=== PATIENT | male | born 1950 | race Caucasian/White ===

== ENCOUNTER → 2020-01-19 08:33 | Outpatient (BNVA) | payer OTHER, MEDICARE, SELFPAY | PROVIDERS: Family Provider Family Medicine; PCP Family Medicine; Visit Provider Nurse Practitioner Family | DX: I10 Essential (primary) hypertension (principal); Z68.32 Body mass index [BMI] 32.0-32.9, adult; Z12.6 Encounter for screening for malignant neoplasm of bladder | CPT/HCPCS: 80053; 80061; 81000; 82044; 83036; 84439; 84443 ==

== ENCOUNTER → 2020-02-07 09:53 | Outpatient (BNVA) | payer MEDICARE, OTHER, SELFPAY | PROVIDERS: Family Provider Family Medicine; PCP Family Medicine; Visit Provider Family Medicine | DX: E87.1 Hypo-osmolality and hyponatremia (principal); I10 Essential (primary) hypertension; E11.8 Type 2 diabetes mellitus with unspecified complications | CPT/HCPCS: 36415; 80053 ==

== ENCOUNTER → 2020-02-23 08:53 | Outpatient (BNVA) | payer OTHER, MEDICARE, SELFPAY | PROVIDERS: Family Provider Family Medicine; PCP Family Medicine; Visit Provider Nurse Practitioner Family | DX: R31.9 Hematuria, unspecified (principal); I10 Essential (primary) hypertension; E87.1 Hypo-osmolality and hyponatremia; E11.8 Type 2 diabetes mellitus with unspecified complications | CPT/HCPCS: 81000 ==

== ENCOUNTER → 2020-03-08 09:20 | Outpatient (BNVA) | payer OTHER, MEDICARE, SELFPAY | PROVIDERS: Family Provider Family Medicine; PCP Family Medicine; Visit Provider Family Medicine | DX: E11.8 Type 2 diabetes mellitus with unspecified complications (principal); E87.1 Hypo-osmolality and hyponatremia | CPT/HCPCS: 80053 ==

== ENCOUNTER → 2020-07-19 09:40 | Outpatient (BNVA) | payer OTHER, MEDICARE, SELFPAY | PROVIDERS: Family Provider Family Medicine; PCP Family Medicine; Visit Provider Family Medicine | DX: E11.8 Type 2 diabetes mellitus with unspecified complications (principal); E87.1 Hypo-osmolality and hyponatremia | CPT/HCPCS: 80053; 83036 ==

== ENCOUNTER → 2020-08-10 10:01 | Outpatient (BNVA) | payer OTHER, MEDICARE, SELFPAY | PROVIDERS: Family Provider Family Medicine; PCP Family Medicine; Visit Provider Family Medicine | DX: E87.1 Hypo-osmolality and hyponatremia (principal) | CPT/HCPCS: 36415; 80048 ==

== ENCOUNTER 2020-09-04 00:30 | Inpatient (IN) | payer MEDICARE, SELFPAY ==
[2020-09-04] VITALS (249 sets, daily range): BP systolic 113–187; BP diastolic 47–134; PULSE 64–130; RESP 0–74; TEMP 36–36.6; O2SAT 85–100; BMI 30.1
--- NOTE | 2020-09-04 00:37 | XRR_ITS ---
PROCEDURE INFORMATION: Exam: XR Chest Exam date and time: 09/04/2020 12:41 AM Age: 70 years old Clinical indication: Shortness of breath; Prior surgery; Surgery type: Pacemaker; Additional info: SOB TECHNIQUE: Imaging protocol: XR of the chest Views: 1 view. COMPARISON: No relevant prior studies available. FINDINGS: Tubes, catheters and devices: Atrioventricular pacemaker. Lungs: Interstitial prominence. Asymmetric left basilar airspace/pleural disease partially obscuring the left hemidiaphragm. Heart/Mediastinum: Borderline cardiomegaly. Bones/joints: Old rib fractures and degenerative change. XR/XR chest 1V portable [id number] IMPRESSION: Interstitial prominence and asymmetric left basilar airspace/pleural disease .
--- NOTE | 2020-09-04 00:38 | ECG_ITS ---
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
--- NOTE | 2020-09-04 00:40 | ED_ITS ---
HPI - SOB/Dyspnea General: Chief Complaint: Shortness of Breath/Dyspnea Stated Complaint: SOB Time Seen by Provider: 09/04/20 00:32 Source: patient Mode of arrival: ambulatory Limitations: no limitations History of Present Illness: HPI Narrative: 70-year-old male states that he has history of COPD along with CHF. He states that seen he started having increasing shortness of breath. Patient is in distress here and is able to talk in roughly 4-5 word sentences. He has audible wheezing in the room. He denies any cough or fever. He denies any chest pain. States his shortness of breath is worse with exertion. MD elicited complaint: shortness of breath Associated symptoms: Deny abdominal pain, chest pain, fever(s), nausea or vomiting Review of Systems Const: Denies: fever(s), chills, body aches or change in appetite Eyes: Denies: blurry vision or eye discomfort ENMT: Denies: throat pain or dental pain Card: Denies: chest pain Resp: Reports: dyspnea and wheezing GI: Denies: abdominal pain, nausea, vomiting or diarrhea : Denies: dysuria Musc: Denies: neck pain or back pain Skin/Breast: Denies: rash Neuro: Denies: headache(s) Psych: Denies: depression Mark/Lymph: Denies: easy bruising All/Imm: Denies: urticaria PFSH ED PFSH: Medical History (Updated 09/04/20 @ 03:01 by Velma Carlton MD) CAD (coronary artery disease) Had PCI in 2017 following a heart attack COPD (chronic obstructive pulmonary disease) Pacemaker Type 2 diabetes mellitus with complication, without long-term current use of insulin Surgical History (Updated 09/04/20 @ 01:44 by Madeleine Bates MD) History of PTCA S/P placement of cardiac pacemaker Family History Mother Cancer Family/Other Diabetes Father Lung disease Denies family history of CAD (coronary artery disease) Clotting disorder Dementia Chronic kidney disease (CKD) Suicide Anesthesia complication Bleeding disorder Stroke Social History Smoking and tobacco status: never smoked Alcohol intake: current Alcohol intake frequency: few times a week Physical Exam Const: COMMON NORMALS: patient oriented x3 GENERAL APPEARANCE: in distress HENMT: COMMON NORMALS: normocephalic and atraumatic HEAD & SCALP: normocephalic and atraumatic Eye: COMMON NORMALS: Equal, round and reactive pupils present and EOMs intact bilaterally PUPIL: Yes Equal, round and reactive pupils present Neck/C-Spine: COMMON NORMALS: full ROM and supple Chest: COMMONS NORMALS: normal inspection of the chest and normal palpation of entire chest wall Resp: EFFORT & INSPECTION: Yes tachypneic and Yes respiratory distress AUSCULTATION: wheezes Cardio: COMMON NORMALS: regular rate, regular rhythm and No murmurs present (Cardio) RATE: regular rate RHYTHM: regular rhythm GI: COMMON NORMALS: Normal to inspection, nondistended, normoactive bowel sounds present, Soft to palpation, non-tender and no masses PALPATION: Yes S oft to palpation Extremity: COMMON NORMALS: normal to inspection and full ROM Neuro: COMMON NORMALS: patient oriented x3, moves all extremities and no focal motor deficits Psych: COMMON NORMALS: mental status grossly normal, Normal thought process present and cooperative THOUGHT PROCESS: Normal thought process present Skin: COMMON NORMALS: no rashes or lesions noted and no wounds GENERAL SKIN EXAM: no rashes or lesions noted Course Vital Signs: Vital signs: Vital Signs Temperature 97.9 F 09/04/20 00:34 Pulse Rate 108 H 09/04/20 02:21 Respiratory Rate 23 H 09/04/20 02:21 Blood Pressure 185/79 09/04/20 02:21 Pulse Oximetry 97 09/04/20 02:21 MDM - SOB/Dyspnea MDM Narrative: Medical decision making narrative: Patient presents here with likely pneumonia with shortness of breath. Patient also has an elevated troponin will treat with Lovenox. Patient given IV antibiotics for his pneumonia. Breathing has improved with treatments. Patient's D-dimer is negative and has no signs of pulmonary [place] Lab Data: Labs: Lab Results 09/04/20 09/04/20 09/04/20 Range/Units 00:48 00:48 00:48 WBC 18.5 H (4.0-10.0) 10^3/ uL RBC 4.09 L (4.1-5.3) 10^6/u L Hgb 13.6 (11.7-16.6) g/dL Hct 41.3 L (42.0-52.0) % MCV 101.0 H (80-94) fL MCH 33.3 (28.0-34.0) pg MCHC 32.9 (30.0-36.0) g/dL RDW 12.8 (12.1-15.1) % Plt Count 206 (130-400) 10^3/c mm MPV 10.7 H (7.4-10.4) fL Neut % (Auto) 85.2 % Lymph % (Auto) 6.9 % [place] % (Auto) 5.6 % Eos % (Auto) 1.7 % Baso % (Auto) 0.2 % Neut # (Auto) 15.77 H (1.8-7.7) 10^3/u L Lymph # (Auto) 1.3 (0.8-4.8) 10^3/u L [place] # (Auto) 1.0 H (0.2-0.9) 10^3/u L Eos # (Auto) 0.3 (0.0-0.8) 10^3/u L Baso # (Auto) 0.0 (0.0-0.1) 10^3/u L Nucleated RBC % (a uto) 0 % Nucleated RBCs # 0.0 /100WBC PT 14.10 (12.1-14.9) SECO NDS INR 1.06 (0.8-1.2) D-Dimer (0-0.59) ug/mIFE U Specimen Type Sample Site ABG pH (7.35-7.45) ABG pCO2 (35-45) mmHg ABG pO2 (80.0-100.0) mmH g ABG HCO3 (22-26) mmol/L ABG Base Excess (-2.0-2.0) mmol/ L Viraj Test Hematocrit (42-52) % Hgb O2 Saturation (95-100) % Carboxyhemoglobin (0.4-20.1) %THgb Methemoglobin (0.4-1.5) % Total Hemoglobin (14-18) g/dL O2 Delivery Device O2 Liters/Min % Photographic Developer And Printer ID Sodium 134 L (136-145) mmol/L Potassium 4.0 (3.5-5.1) mmol/L Chloride 98 (98-107) mmol/L Carbon Dioxide 22 (22-29) mmol/L Anion Gap 18.0 (5-19) BUN 7 L (8-23) mg/dL Creatinine 0.7 (0.7-1.2) mg/dL GFR Calculation Not Reportable Glucose 211 H (65-115) mg/dL Calculated Osmolal ity 282 L (285-295) mOsm/k g Calcium 8.6 (8.5-10.5) mg/dL Total Bilirubin 0.5 (0.15-1.2) mg/dL AST 22 (0-40) U/L ALT 15 (0-41) U/L Alkaline Phosphata se 74 (40-130) IU/L Troponin T Baselin e (0-15) ng/L NT-Pro-B Natriuret Pep 4506 H (0-125) pg/mL Total Protein 6.9 (6.6-8.7) g/dL Albumin 4.1 (3.5-5.2) g/dL Globulin 2.8 (1.3-4.6) g/dL Procalcitonin (0-0.5) ng/mL SARS-CoV-2 Ag (Rap id) (Negative) 09/04/20 09/04/20 09/04/20 Range/Units 00:48 00:48 00:48 WBC (4.0-10.0) 10^3/ uL RBC (4.1-5.3) 10^6/u L Hgb (11.7-16.6) g/dL Hct (42.0-52.0) % MCV (80-94) fL MCH (28.0-34.0) pg MCHC (30.0-36.0) g/dL RDW (12.1-15.1) % Plt Count (130-400) 10^3/c mm MPV (7.4-10.4) fL Neut % (Auto) % Lymph % (Auto) % [place] % (Auto) % Eos % (Auto) % Baso % (Auto) % Neut # (Auto) (1.8-7.7) 10^3/u L Lymph # (Auto) (0.8-4.8) 10^3/u L [place] # (Auto) (0.2-0.9) 10^3/u L Eos # (Auto) (0.0-0.8) 10^3/u L Baso # (Auto) (0.0-0.1) 10^3/u L Nucleated RBC % (a uto) % Nucleated RBCs # /100WBC PT (12.1-14.9) SECO NDS INR (0.8-1.2) D-Dimer 0.54 (0-0.59) ug/mIFE U Specimen Type Sample Site ABG pH (7.35-7.45) ABG pCO2 (35-45) mmHg ABG pO2 (80.0-100.0) mmH g ABG HCO3 (22-26) mmol/L ABG Base Excess (-2.0-2.0) mmol/ L Viarj Test Hematocrit (42-52) % Hgb O2 Saturation (95-100) % Carboxyhemoglobin (0.4-20.1) %THgb Methemoglobin (0.4-1.5) % Total Hemoglobin (14-18) g/dL O2 Delivery Device O2 Liters/Min % Photographic Developer And Printer ID Sodium (136-145) mmol/L Potassium (3.5-5.1) mmol/L Chloride (98-107) mmol/L Carbon Dioxide (22-29) mmol/L Anion Gap (5-19) BUN (8-23) mg/dL Creatinine (0.7-1.2) mg/dL GFR Calculation Glucose (65-115) mg/dL Calculated Osmolal ity (285-295) mOsm/k g Calcium (8.5-10.5) mg/dL Total Bilirubin (0.15-1.2) mg/dL AST (0-40) U/L ALT (0-41) U/L Alkaline Phosphata se (40-130) IU/L Troponin T Baselin e 112 H* (0-15) ng/L NT-Pro-B Natriuret Pep (0-125) pg/mL Total Protein (6.6-8.7) g/dL Albumin (3.5-5.2) g/dL Globulin (1.3-4.6) g/dL Procalcitonin 0.04 (0-0.5) ng/mL SARS-CoV-2 Ag (Rap id) (Negative) 03/02/21 03/02/21 Range/Units 00:50 01:33 WBC (4.0-10.0) 10^3/ uL RBC (4.1-5.3) 10^6/u L Hgb (11.7-16.6) g/dL Hct (42.0-52.0) % MCV (80-94) fL MCH (28.0-34.0) pg MCHC (30.0-36.0) g/dL RDW (12.1-15.1) % Plt Count (130-400) 10^3/c mm MPV (7.4-10.4) fL Neut % (Auto) % Lymph % (Auto) % [place] % (Auto) % Eos % (Auto) % Baso % (Auto) % Neut # (Auto) (1.8-7.7) 10^3/u L Lymph # (Auto) (0.8-4.8) 10^3/u L [place] # (Auto) (0.2-0.9) 10^3/u L Eos # (Auto) (0.0-0.8) 10^3/u L Baso # (Auto) (0.0-0.1) 10^3/u L Nucleated RBC % (a uto) % Nucleated RBCs # /100WBC PT (12.1-14.9) SECO NDS INR (0.8-1.2) D-Dimer (0-0.59) ug/mIFE U Specimen Type Arterial Sample Site Radial, right ABG pH 7.35 (7.35-7.45) ABG pCO2 41.3 (35-45) mmHg ABG pO2 71.1 L (80.0-100.0) mmH g ABG HCO3 22.8 (22-26) mmol/L ABG Base Excess -2.8 L (-2.0-2.0) mmol/ L Viraj Test Pos Hematocrit 41.7 L (42-52) % Hgb O2 Saturation 91.8 L (95-100) % Carboxyhemoglobin 1.9 (0.4-20.1) %THgb Methemoglobin 0.9 (0.4-1.5) % Total Hemoglobin 13.6 L (14-18) g/dL O2 Delivery Device Nc O2 Liters/Min 2.0 % Photographic Developer And Printer ID [email or web address] Sodium (136-145) mmol/L Potassium (3.5-5.1) mmol/L Chloride (98-107) mmol/L Carbon Dioxide (22-29) mmol/L Anion Gap (5-19) BUN (8-23) mg/dL Creatinine (0.7-1.2) mg/dL GFR Calculation Glucose (65-115) mg/dL Calculated Osmolal ity (285-295) mOsm/k g Calcium (8.5-10.5) mg/dL Total Bilirubin (0.15-1.2) mg/dL AST (0-40) U/L ALT (0-41) U/L Alkaline Phosphata se (40-130) IU/L Troponin T Baselin e (0-15) ng/L NT-Pro-B Natriuret Pep (0-125) pg/mL Total Protein (6.6-8.7) g/dL Albumin (3.5-5.2) g/dL Globulin (1.3-4.6) g/dL Procalcitonin (0-0.5) ng/mL SARS-CoV-2 Ag (Rap id) Negative (Negative) Imaging Data^: CXR: Attestation: I personally reviewed and interpreted this imaging study as follows: My impression: bilateral infiltrates EKG Data^: EKG 1: Attestation: I personally reviewed and interpreted this EKG as follows: EKG Interpretation Date: 09/04/20 EKG interpretation time: 00:44 Interpretation: pacemaker hr [address] or t wave abnormalities qrs 189 qtc 480 Critical Care Time Critical Care Time: Critical Care Time: Yes Total Critical Care Time: 35 Attestation: [address] [address] Ultrasound Report Signed Patient: Tito Stevens Unit #: [id number] : 12/13/2019 Age/Sex: 1Y 08M / M ADM Date: 09/03/20 Loc: ER Room/Bed: Attending Dr: Ordering Provider/Ordering MD: Velma Carlton MD Date of Service: 09/03/20 Procedure(s): US abdomen limited [id number] Accession Number(s): [id number] Report Number: [id number] PROCEDURE INFORMATION: Exam: US Abdomen, Limited; Intussusception Exam date and time: 09/03/2020 9:21 PM Age: 10 years old Clinical indication: Abdominal pain; Generalized; Additional info: R/O intusucception TECHNIQUE: Imaging protocol: US abdomen. Real time ultrasound with image documentation. Limited exam focused on the bowel for possible intussusception. COMPARISON: US Renal Kidney Structu* [id number] 12/21/2018 11:56 AM FINDINGS: Bowel: No intussusception identified. Intraperitoneal space: No free fluid. Lymph nodes: No pathologically enlarged lymph nodes. Bladder: Distended urinary bladder. US/US abdomen limited [id number] IMPRESSION: No intussusception identified. Discharge Plan Discharge Patient Disposition: Admitted As Inpatient Admit Provider: Madeleine Bates Clinical Impression: Pneumonia, Non-ST elevation MO (NSTEMI) Condition: Stable Coding Level of Care Code ED Lab Asst for Chg Fwd Exam Comprehensive
[2020-09-04] MEDS: ipratropium-albuterol 3 mL Neb INHALATION ×3 (00:49→21:19)
[2020-09-04 00:54] LABS: Basophils % 0.2 %; Eosinophils # 0.3 10^3/uL (0.0-0.8); Eosinophils % 1.7 %; Hematocrit 41.3 % (42.0-52.0); Hemoglobin 13.6 g/dL (11.7-16.6); Lymphocytes # 1.3 10^3/uL (0.8-4.8); Lymphocytes % 6.9 %; Mean Corpuscular HGB Conc 32.9 g/dL (30.0-36.0); Mean Corpuscular Hemoglobin 33.3 pg (28.0-34.0); Mean Platelet Volume 10.7 fL (7.4-10.4); Monocytes % 5.6 %; Neutrophils # 15.77 10^3/uL (1.8-7.7); Neutrophils % 85.2 %; Nucleated Red Blood Cells % 0 %; Platelet Count 206 10^3/cmm (130-400); Red Blood Count 4.09 10^6/uL (4.1-5.3); Red Cell Distribution Width 12.8 % (12.1-15.1); White Blood Count 18.5 10^3/uL (4.0-10.0)
[2020-09-04 00:57] LABS: ABG PCO2 41.3 mmHg (35-45); ABG PH Result 7.35 (7.35-7.45); Arterial Blood Gas Hematocrit 41.7 % (42-52); Base Excess ABG -2.8 mmol/L (-2.0-2.0); Blood Gas Allen Test Pos; Blood Gas Sample Site Radial, right; Blood Gas Sample Type Arterial; Carboxyhemoglobin 1.9 %THgb (0.4-20.1); HCO3 ABG 22.8 mmol/L (22-26); HGB O2 Sat 91.8 % (95-100); Methemoglobin 0.9 % (0.4-1.5); Oxygen Device NC; PO2 ABG 71.1 mmHg (80.0-100.0); Total Hemoglobin 13.6 g/dL (14-18)
--- NOTE | 2020-09-04 01:15 | P.HP_ITS ---
Providers/Chief Complaint Primary Care Provider: Kuldip Richter DO Chief Complaint: SOB History of Present Illness Gustavo Mcgill is a 70 year old male who has history of ischemic cardiomyopathy, coronary disease, pacemaker placement type 2 diabetes presented today with chief complaint of worsening shortness of breath. Patient stating that his symptoms started about 7 days ago with shortness of breath which is gradually gotten worse he has not noticed any fever but his symptoms were associated with nonproductive cough. He is endorsing orthopnea and PND, he is denying chest pain, diarrhea and dysuria. He also experienced 1 episode of emesis. Because of the symptoms he decided to come to the hospital for further evaluation. During my evaluation he was saturating well on 2 L nasal cannula with normal hemodynamics, no active chest pain however had audible wheezing, diagnosis in the ER revealed leukocytosis, tachypnea, sepsis, right middle lobe pneumonia, high BNP with mild signs of CHF exacerbation, requested procalcitonin, D-dimer in the ER he history IV steroids, EKG showing paced rhythm, troponin 112 Review of Systems Const: Reports: chills, body aches and fatigue; Denies: fever(s) Eyes: Denies: change in vision ENMT: Denies: throat pain Card: Reports: edema, swelling of feet/ankles, dyspnea on exertion and orthopnea; Denies: chest pain Resp: Reports: dyspnea and non-productive cough GI: Denies: abdominal pain : Denies: flank pain Musc: Denies: neck pain Skin/Breast: Denies: rash Neuro: Denies: headache(s) Psych: Denies: anxiety Endo: Denies: polyuria Mark/Lymph: Denies: easy bruising All/Imm: Denies: urticaria Medications/Allergies Home Medications Medication Instructions Recorded Confirmed Last Taken Type pioglitazone 45 mg tablet 45 mg PO DAILY #90 tab 10/05/19 09/03/20 Unknown Rx atorvastatin 80 mg tablet 80 mg PO DAILY #30 tab 01/10/20 09/03/20 Unknown Rx tamsulosin 0.4 mg capsule 0.4 mg PO DAILY #30 cap 01/10/20 09/03/20 Unknown Rx blood-glucose meter #1 each 02/23/20 09/03/20 Unknown Rx atenolol 100 mg tablet 100 mg PO DAILY #90 tab 03/05/20 09/03/20 Unknown Rx lisinopril 10 mg tablet 10 mg PO DAILY #90 tab 03/05/20 09/03/20 Unknown Rx metformin 1,000 mg tablet See Rx Instructions .ROUTE 07/05/20 09/03/20 Unknown Rx .COMPLEX #180 unspecified glimepiride 4 mg tablet See Rx Instructions .ROUTE 07/23/20 09/03/20 Unknown Rx .COMPLEX #90 tab albuterol sulfate 90 mcg/actuation 2 inh INHALATION Q6H PRN #18 g 08/09/2009/03 Unknown Rx aerosol inhaler Allergies Allergy/AdvReac Type Severity Reaction Status Date / Time No Known Allergies Allergy Verified 09/04/20 00:41 PFSH Acute PFSH: Medical History (Updated 09/04/20 @ 01:43 by Madeleine Bates MD) CAD (coronary artery disease) Had PCI in 2017 following a heart attack COPD (chronic obstructive pulmonary disease) Pacemaker Type 2 diabetes mellitus with complication, without long-term current use of insulin Surgical History (Updated 09/04/20 @ 01:44 by Madeleine Bates MD) History of PTCA S/P placement of cardiac pacemaker Family History Mother Cancer Family/Other Diabetes Father Lung disease Denies family history of CAD (coronary artery disease) Clotting disorder Dementia Chronic kidney disease (CKD) Suicide Anesthesia complication Bleeding disorder Stroke Social History Smoking and tobacco status: never smoked Alcohol intake: current Alcohol intake frequency: few times a week Vitals/I&O/Wt Last Vital Signs Temp 97.9 F 09/04/20 00:34 Pulse 99 09/04/20 00:49 Resp 24 H 09/04/20 00:49 BP 185/79 09/04/20 00:34 Pulse Ox 95 09/04/20 00:49 Weight last 48 hrs Weight 89.811 kg Physical Exam Narrative: EXAM NARRATIVE: elderly male, appears stated age with signs of heart failure Patient was sitting in his bed without active chest pain however saturating well on 2 L nasal cannula S1, S2 paced no murmur appreciated Mild signs of CHF exacerbation Mild conjunctival hyperemia Audible wheezing likely cardiac, diminished airflow right greater than left Abdomen soft nontender Lower extremity 1+ pitting edema No neurological deficit EOMI, PERRLA GCS 15 awake alert x3 oriented No joint swelling or skin cellulitis Data : 09/04/20 00:48 09/04/20 00:48 A&P Assessment and plan (1) Right lower lobe pneumonia: Status: Acute (2) Acute respiratory failure with hypoxia: Status: Acute (3) Sepsis: Status: Acute (4) CHF exacerbation: Status: Acute Additional A&P Information Sepsis due to right middle lobe pneumonia Criteria met with tachypnea, leukocytosis, will start him on ceftriaxone and azithromycin, Requested urine antigens Procalcitonin level, Keep him on prednisone 40 mg a day Blood cultures requested Acute hypoxic respiratory failure Secondary to pneumonia with CHF exacerbation Currently doing well on 2 L nasal cannula Will need home O2 evaluation before discharge Requested D-dimer to rule out PE Acute CHF exacerbation Mild signs of CHF exacerbation with high BNP, cardiac wheezing noted We will request echo in the morning No active chest pain I do believe due to pneumonia he is experiencing acute CHF exacerbation I would recommend against pioglitazone which can exacerbate CHF Coronary artery disease History of stent placement continue aspirin, statins Hold atenolol because of active CHF No active chest pain however troponin 112, rule out PE, EKG showing paced rhythm EKG showing paced rhythm I will start him on ACS protocol because of significant troponin above 100, my differential would include septic cardiomyopathy Type 2 diabetes: I would recommend against glimepiride, we will keep him on car diac/consistent carb diet with moderate sliding scale hold Metformin History of hypertension: Continue lisinopril BPH: Continue tamsulosin Cardiac/consistent carb diet DVT prophylaxis not indicated Full code Attestations Medical Necessity Statement*: Anticipating stay in the hospital, cross more than 2 midnights for acute hypoxia and pneumonia, sepsis Time Spent in Patient Care: (>than 50% of time spent in counselling and/or direct pt care on unit) . 35mins Coding Level of Care Code Acute [place] Drawer for Abdirizakg Fwd Diagnoses Right lower lobe pneumonia J18.9 Acute respiratory failure with hypoxia J96.01 Sepsis A41.9 CHF exacerbation I50.9
[2020-09-04 01:20] LABS: INR 1.06 (0.8-1.2)
[2020-09-04 01:29] LABS: Troponin(5th) Baseline 112 ng/L (0-15)
[2020-09-04 01:34] LABS: Alanine Aminotransferase 15 U/L (0-41); Albumin Level 4.1 g/dL (3.5-5.2); Alkaline Phosphatase 74 IU/L (40-130); Aspartate Amino Transferase 22 U/L (0-40); Blood Urea Nitrogen 7 mg/dL (8-23); Calcium 8.6 mg/dL (8.5-10.5); Carbon Dioxide 22 mmol/L (22-29); Chloride 98 mmol/L (98-107); Globulin 2.8 g/dL (1.3-4.6); Glucose 211 mg/dL (65-115); NT Pro B Type Natriuretic Pept 4506 pg/mL (0-125); Osmolality Calculated 282 mOsm/kg (285-295); Sodium 134 mmol/L (136-145); Total Bilirubin 0.5 mg/dL (0.15-1.2); Total Protein 6.9 g/dL (6.6-8.7)
[2020-09-04 02:01] LABS: D Dimer 0.54 ug/mIFEU (0-0.59)
[2020-09-04 02:14] LABS: Procalcitonin 0.04 ng/mL (0-0.5)
[2020-09-04 02:47] LABS: SARS Covid-2 Antigen Negative (Negative)
[2020-09-04 02:58] LABS: Troponin 5 2HR 131.1 ng/L (0-15); Troponin 5 2HR Delta 19.1 ABS# (0-10)
[2020-09-04] MEDS: LORazepam 2 mg/mL INJ 1 mL 0.5 MG IVP (03:10)
[2020-09-04] MEDS: enoxaparin 100 mg/mL Syringe 90 MG SUBCUT ×2 (03:10→15:27)
--- NOTE | 2020-09-04 03:18 | PC.NURSE ---
Breathing appears labored at this time, pt is distressed. Pt given a breathing treatment by respiratory therapy and 0.5mg ativan IVP by this nurse. Pt continues to sat 85% on 6L O2 via NC. Repiratory therapy will set up Bipap and see how patient tolerates and if respiratory effort decreases.
[2020-09-04] MEDS: nitroglycerin 0.4 mg sublingual Tablet SUBLINGUAL (03:27)
--- NOTE | 2020-09-04 03:30 | XRR_ITS ---
PROCEDURE INFORMATION: Exam: XR Chest Exam date and time: 09/04/2020 3:39 AM Age: 70 years old Clinical indication: Shortness of breath; Prior surgery; Surgery type: Pacemaker; Patient HX: Increased SOB TECHNIQUE: Imaging protocol: XR of the chest Views: 1 view. COMPARISON: CR XR chest 1V portable [id number] 09/04/2020 12:32 AM FINDINGS: Tubes, catheters and devices: Pacemaker. Lungs: Hyperinflation, interstitial prominence, and bibasilar airspace disease. The right basilar airspace disease was not present on the. Study. Pleural spaces: Left pleural effusion partially obscuring the left hemidiaphragm. No significant pneumothorax. Heart/Mediastinum: Cardiac silhouette upper limits of normal in size. Bones/joints: Degenerative change. XR/XR chest 1V portable [id number] IMPRESSION: 1. Hyperinflation, interstitial prominence, and bibasilar airspace disease. 2. Left pleural effusion partially obscuring the left hemidiaphragm.
--- NOTE | 2020-09-04 03:30 | ECG_ITS ---
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
--- NOTE | 2020-09-04 03:49 | PC.NURSE ---
Labetalol 10mg not given at this time as pt BP is now 131/71. Dr. Carlton orders to hold labetalol at this time.
--- NOTE | 2020-09-04 04:33 | USCV_ITS ---
Gustavo Mcgill Age: 70 Gender: M : 1950 Exam Date: 09/04/2020 06:19 Ordering Phys: Madeleine Bates MD Technologist: Brant De Paz Exam Location: [facility] [place] Indication: CHF BP: 134 / 72 HR: Rhythm: Sinus Technical Quality: FAIR MEASUREMENTS (Male / Female) Normal Values 2D ECHO LV Diastolic Diameter PLAX 4.9 cm 4.2 - 5.9 / 3.9 - 5.3 cm LV Systolic Diameter PLAX 3.2 cm IVS Diastolic Thickness 1.1 cm 0.6 - 1.0 / 0.6 - 0.9 cm IVS Systolic Thickness 1.1 cm LVPW Diastolic Thickness 1.1 cm 0.6 - 1.0 / 0.6 - 0.9 cm LVPW Systolic Thickness 1.4 cm LVOT Diameter 2.1 cm LV Ejection Fraction 2D Teich 63.3 % LV Ejection Fraction MOD 2C 33.1 % LV Ejection Fraction 2C AL 32.8 % LA Diameter 3.9 cm LA Width 5.5 cm LA Height 5.5 cm RA Width 4.3 cm RA Height 5.4 cm Aorta at Sinotubular Diameter 3.0 cm M-MODE LV Diastolic Diameter MM 6.0 cm 4.2 - 5.9 / 3.9 - 5.3 cm LV Systolic Diameter MM 4.6 cm LV Ejection Fraction MM Teich 47.5 % IVS Diastolic Thickness MM 1.1 cm 0.6 - 1.0 / 0.6 - 0.9 cm IVS Systolic Thickness MM 2.4 cm LVPW Diastolic Thickness MM 1.4 cm 0.6 - 1.0 / 0.6 - 0.9 cm LVPW Systolic Thickness MM 1.6 cm RV Diastolic Diameter MM 1.6 cm Aortic Annulus Diameter 4.2 cm LA Ao Ratio MM 0.9 MV E Point Septal Separation 1.1 cm DOPPLER AV Peak Velocity 149.0 cm/s LVOT Peak Velocity 109.0 cm/s AV Area Cont Eq vti 2.7 cm squared AV Area Cont Eq pk 2.6 cm squared MV Area PHT 5.0 cm squared Mitral E to A Ratio 0.6 MV E' Velocity 33.0 cm/s Mitral E to MV E' Ratio 10.1 Mitral E to LV E' Lateral Ratio 8.7 Mitral E to LV E' Septal Ratio 11.9 TR Peak Velocity 149.8 cm/s TR Peak Gradient 9.0 mmHg TV Peak E Velocity 61.0 cm/s Right Atrial Pressure 3.0 mmHg Pulmonary Artery Systolic Pressu 12.0 mmHg PV Peak Velocity 100.0 cm/s FINDINGS Left Ventricle Diffuse hypokinesia of the septum, anteroseptum, inferior wall and LV apex. Dyskinetic basal inferolateral segment .overall LV ejection fraction around 36%.Grade I/IV diastolic dysfunction (abnormal relaxation filling pattern), normal to mildly elevated filling pressures. Right Ventricle Pacemaker wire in the right ventricle Right Atrium Pacemaker wire in the right atrium Left Atrium The left atrium is normal in size. Mitral Valve Thickened mitral valve. Mild mitral valve regurgitation. Aortic Valve Thickened aortic valve. Tricuspid Valve No gross abnormalities noted Pulmonic Valve Pulmonic valve not well visualized. Pericardium Normal pericardium without effusion. Aorta Normal ascending aorta dimension. CONCLUSIONS Multiple wall motion of abnormalities with a diminished ejection fraction of around 36% . Grade I/IV diastolic dysfunction (abnormal relaxation filling pattern), normal to mildly elevated filling pressures. Thickened aortic and mitral valves. Mild mitral valve regurgitation. Pacemaker wire in the right atrium and right ventricle. There is no pericardial effusion. Technically somewhat difficult study because of the poor ultrasonic window. There are no prior echocardiogram studies to compare. Dr Ambar Prince MD FACC (Electronically Signed) Final Date: 05 September 2020 05:42 S
[2020-09-04] MEDS: clopidogrel 300 mg Tablet PO (05:17)
[2020-09-04] MEDS: aspirin 325 mg EC Tablet PO (05:17)
--- NOTE | 2020-09-04 06:38 | ECG_ITS ---
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
[2020-09-04 07:31] LABS: Glucose Point of Care 279 mg/dL (70-110)
[2020-09-04] MEDS: FUROsemide 40 mg Tablet PO (08:10)
[2020-09-04] MEDS: predniSONE 20 mg Tablet 40 MG PO (08:10)
[2020-09-04] MEDS: atorvastatin 40 mg Tablet 80 MG PO (08:10)
[2020-09-04] MEDS: aspirin 81 mg EC Tablet PO (08:10)
[2020-09-04] MEDS: cefTRIAXone 1,000 MG in sodium chloride 0.9% (plus) 50 ML 100 MG IV (08:10)
[2020-09-04] MEDS: azithromycin 250 mg Tablet 500 MG PO (08:10)
[2020-09-04] MEDS: clopidogrel 75 mg Tablet PO (08:10)
[2020-09-04] MEDS: tamsulosin 0.4 mg Capsule PO (08:10)
--- NOTE | 2020-09-04 08:22 | PM.PN ---
Subjective Subjective: Interval history: He is feeling little bit better this morning. Shortness of breath is little better. Came off of BiPAP, now on nasal cannula. Normally does not use supplemental oxygen. He denies any cough, no sputum production. Denies chest pain. He has had no fever or chills. No nausea vomiting or diarrhea. Having mild headache. He has not been around any ill persons, or any persons infected with COVID-19. Vitals/I&O/Wt Last Vital Signs Temp 97.5 F L 09/04/20 04:35 Pulse 74 09/04/20 07:35 Resp 18 09/04/20 07:35 BP 159/79 09/04/20 07:35 Pulse Ox 97 09/04/20 07:35 09/03/20 09/04/20 09/04/20 22:59 06:59 14:59 Output Total 200 / 200 Balance -200 / -200 Weight last 48 hrs Weight 88.496 kg Weight 88.479 kg Weight 89.811 kg Physical Exam Const: COMMON NORMALS: no acute distress and patient oriented x3 HENMT: COMMON NORMALS: oropharynx normal OTHER: Old scar or possibly pressure injury on the bridge of the nose. Neck/C-Spine: COMMON NORMALS: no JVD Resp: COMMON NORMALS: normal respiratory effort OTHER: Somewhat coarse breath sounds, perhaps minimal faint crackles, no rhonchi Cardio: COMMON NORMALS: no JVD, regular rhythm, S1 normal heart sound present, S2 normal heart sound present and No murmurs present (Cardio) RHYTHM: regular rhythm HEART SOUNDS: S1 normal heart sound present and S2 normal heart sound present GI: COMMON NORMALS: Normal to inspection, nondistended, normoactive bowel sounds present, Soft to palpation and non-tender PALPATION: Yes Soft to palpation Extremity: COMMON NORMALS: no joint enlargement GENERAL: Yes edema (1+) Neuro: COMMON NORMALS: patient oriented x3 and moves all extremities Skin: COMMON NORMALS: no rashes or lesions noted GENERAL SKIN EXAM: no rashes or lesions noted Data : 09/04/20 00:48 09/04/20 00:48 Micro: Microbiology 09/04/20 02:20 Blood Culture - Preliminary Blood SPECIMEN COLLECTED 09/04/20 02:25 Blood Culture - Preliminary Blood SPECIMEN COLLECTED A&P Assessment and plan (1) Acute respiratory failure with hypoxia: Overnight on BiPAP. This morning proceeding better. Wean down BiPAP, on nasal cannula. He reports he is breathing better today. Denies cough, phlegm production. Denies any chest pain. He is afebrile. Discussed the concern of a number of different processes in him, including community-acquired pneumonia, patient to be in left lower lobe on imaging, acute congestive heart failure, as well as non-STEMI. D-dimer not elevated. Status: Acute (2) Sepsis: Improving. Leukocytosis 18.5, but with improving tachycardia, tachypnea. Continue to biotics. Follow-up cultures. Continue oxygen support, wean down as tolerating. Status: Acute (3) CHF exacerbation: Continue Lasix. Follow-up TTE. Complete troponin EKG series. Continue treatment for non-STEMI, pneumonia. Status: Acute (4) Pneumonia: Community-acquired pneumonia, appears in left lower lobe. Continue ceftriaxone, azithromycin. Follow-up cultures. Status: Acute (5) Non-ST elevation TN (NSTEMI): Continue aspirin, statin, Plavix, therapeutic Lovenox, beta-char had been held due to acute CHF. Status: Acute Additional A&P Information Coronary artery disease: History of stent placement. Follows with Dr. Prince. Type 2 diabetes: No medications on hold. SSI. History of hypertension: Continue lisinopril BPH: Continue tamsulosin Possible pressure injury on the bridge of the nose: avoid additional injury Cardiac/consistent carb diet DVT prophylaxis -on Lovenox Full code Attestations Medical Necessity Statement*: Continue admission for assessment management of respiratory failure with hypoxia, sepsis, pneumonia, acute CHF, non-STEMI. 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
[2020-09-04 08:24] LABS: Troponin 5 6HR 261.3 ng/L (0-15); Troponin 5 6HR Delta 149.3 ng/L (0-12)
--- NOTE | 2020-09-04 08:33 | PC.NURSE ---
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
--- NOTE | 2020-09-04 09:42 | PC.CHAP ---
Pastoral Care Encounter/Spiritual Assessment Type of Contact [] Declined mix chemist visit [] Patient/Family/Request visit [] Outpatient visit [] Follow-up visit [] Physician referral [] Code/Alert [x] Routine visit [] Staff referral [] Actively dying [] Patient sleeping [] Family support [] [] Out of room [] Palliative care [] [] Receiving care in room [] Pre-surgical visit [] Trauma [] Long length of stay [x] ICU visit [] Other: Relational/Emotional Strength [] Patient feels connected with others/family/visitors/staff [] Distress [] Loneliness/isolation [] Abandonment Spirituality of Patient [] Person of Antonette [] Attends Yazidi of their Antonette [] Believes in Prayer [] Reads Bible or Taoist materials [] There are Spiritual issues to be addressed Media Analyst Interventions [x] Prayer [] Active listening [] Non-anxious presence [] Spiritual/emotional support [] Crisis/trauma care [] Spiritual counseling [] Bereavement support [] Provided bereavement packet [] Provided Bible/devotional materials [] Provided toy/stuffed animal, coloring book to patient or family member [] Provided Communion [] Anointing/[place] [] Salvation [x] Completed spiritual assessment [] Other: Impact on Illness or Injury [] Angry [] Fearful [] Anxious [] Often cries [] Exhaustion [] Unable to work [] Unable to attend scientologist [] Unable to walk/stand [] Unable to read [] Unable to drive [] Unable to eat/drink [] Unable to sleep [] Unable to be with family [] Patient intubated [] Other: Summary Time spent with patient
[2020-09-04 11:46] LABS: Glucose Point of Care 371 mg/dL (70-110)
[2020-09-04 18:02] LABS: Glucose Point of Care 220 mg/dL (70-110)
[2020-09-04] MEDS: acetaminophen 325 mg Tablet PO (18:38)
--- NOTE | 2020-09-04 19:38 | P.CONIM_ITS ---
Providers/Reason For Consult Consulting Physican/Specialty*: CHRITSIN Prince MD/cardiology Reason for Consult*: Patient with congestive heart failure/ASHD Attending Physician: Willy Peres Primary Care Provider: Kuldip Richter DO History of Present Illness History of Present Illness Gustavo Mcgill is a 70 year old male with a history of atherosclerotic heart disease, status post myocardial infarction, status post PCI and status post permanent pacer implantation, is presenting with rather acute worsening of shortness of breath. He has been having some amount of shortness of breath with activities for the last more than a week. Yesterday evening, the shortness of breath has significantly gotten worse. He had some nausea and one episode of vomiting. Because of the worsening shortness of breath, he decided to come to the hospital. Could not have any chest pain or fever. No severe cough. No abdominal pain or dysuria. No specific complaints. Was given diuretics and other symptomatic measures. His shortness of breath has significantly improved. His initial troponin was found to be elevated at 112 at baseline, with a delta of 19 at 2 hours and 114 at 6 hours. Patient has recently moved to this area from [place], [place]. He had the PCI approximately 3 years ago. 2 months following the PCI, he had the permanent pacer implantation. He has been compliant with medications. The pacemaker is interrogated in the clinic and was found to be functioning well. Review of Systems Narrative: CONSTITUTIONAL: No fever or chills. Shortness of breath and fatigue lately EYES: No blurring of vision or other visual disturbances lately. ENT: No hoarseness of voice, auditory disturbances or sore throat. CARDIOVASCULAR: As mentioned above. RESPIRATORY: Has been having shortness of breath for last few days GASTROINTESTINAL: No hematemesis or melena. GENITOURINARY: No dysuria or hematuria. INTEGUMENTARY: No skin rashes or history of skin cancer. NEURO: No transient ischemic attacks or amaurosis. PSYCHIATRIC: No history of psychosis or major depression. HEMATOLOGIC: No bleeding disorders or significant anemia. ENDOCRINE: No history of polyuria or polydipsia. MUSCULOSKELETAL: No recent joint pain or swelling. ALLERGY/IMMUNOLOGY: As mentioned above. Meds/Allergies Home Medications and Allergies Home Medications Medication Instructions Recorded Confirmed Last Taken Type atorvastatin 80 mg tablet 80 mg PO DAILY #30 tab 01/10/20 09/04/20 Unknown Rx tamsulosin 0.4 mg capsule 0.4 mg PO DAILY #30 cap 01/10/20 09/04/20 Unknown Rx blood-glucose meter #1 each 02/23/20 09/04/20 Unknown Rx atenolol 100 mg tablet 100 mg PO DAILY #90 tab 03/05/20 09/04/20 Unknown Rx lisinopril 10 mg tablet 10 mg PO DAILY #90 tab 03/05/20 09/04/20 Unknown Rx metformin 1,000 mg tablet See Rx Instructions .ROUTE 07/05/20 09/04/20 Unknown Rx .COMPLEX #180 unspecified glimepiride 4 mg tablet See Rx Instructions .ROUTE 07/23/20 09/04/20 Unknown Rx .COMPLEX #90 tab albuterol sulfate 90 mcg/actuation 2 inh INHALATION Q6H PRN #18 g 08/09/20 09/04/20 Unknown Rx aerosol inhaler aspirin 81 mg PO DAILY 09/04/20 09/04/20 Unknown History Allergies Allergy/AdvReac Type Severity Reaction Status Date / Time No Known Allergies Allergy Verified 09/04/20 00:41 Current Medications Current Medications Generic Name Dose Route Start Last Admin Trade Name Freq PRN Reason Stop Dose Admin Acetaminophen 325 mg 09/04/20 18:26 09/04/20 18:38 Acetaminophen 325 Mg Tablet PO 325 mg Q4H PRN Administration MILD PAIN OR INCREASE TEMP Albuterol/Ipratropium 3 ml 09/04/20 04:33 09/04/20 13:39 Ipratropium-Albuterol 3 Ml Neb INHALATION 3 ml Q6H PRN Administration SHORTNESS OF BREATH Aspirin 81 mg 09/04/20 09:00 09/04/20 08:10 Aspirin 81 Mg Ec Tablet PO 81 mg DAILY TIM Administration Atorvastatin Calcium 80 mg 09/04/20 09:00 09/04/20 08:10 Atorvastatin 40 Mg Tablet PO 80 mg DAILY TIM Administration Azithromycin 500 mg 09/04/20 09:00 09/04/20 08:10 Azithromycin 250 Mg Tablet PO 500 mg DAILY TIM Administration Protocol Clopidogrel Bisulfate 75 mg 09/04/20 09:00 09/04/20 08:10 Clopidogrel 75 Mg Tablet PO 75 mg DAILY TIM Administration Enoxaparin Sodium 90 mg 09/04/20 03:00 09/04/20 15:27 Enoxaparin 100 Mg/Ml Syringe 1 mg/kg (90 mg) 90 mg SUBCUT Administration Q12H TIM Furosemide 40 mg 09/04/20 09:00 09/04/20 08:10 Furosemide 40 Mg Tablet PO 40 mg DAILY TIM Administration Ceftriaxone Sodium 1,000 mg/ 50 mls @ 100 mls/hr 09/04/20 09:00 09/04/20 10:21 Sodium Chloride IV Infused DAILY TIM Infusion Protocol Insulin Aspart 0 unit 09/04/20 08:00 09/04/20 18:18 Insulin Aspart 100 Unit/1 Ml SUBCUT 6 unit WM&BEDTIME TIM Administration Protocol Prednisone 40 mg 09/04/20 09:00 09/04/20 08:10 Prednisone 20 Mg Tablet PO 40 mg DAILY TIM Administration Tamsulosin HCl 0.4 mg 09/04/20 09:00 09/04/20 08:10 Tamsulosin 0.4 Mg Capsule PO 0.4 mg DAILY TIM Administration PFSH Acute PFSH: Medical History CAD (coronary artery disease) Had PCI in 2017 following a heart attack COPD (chronic obstructive pulmonary disease) Pacemaker Type 2 diabetes mellitus with complication, without long-term current use of insulin Surgical History History of PTCA S/P placement of cardiac pacemaker Family History Mother Cancer Family/Other Diabetes Father Lung disease Denies family history of CAD (coronary artery disease) Clotting disorder Dementia Chronic kidney disease (CKD) Suicide Anesthesia complication Bleeding disorder Stroke Social History Smoking and tobacco status: never smoked Alcohol intake: current Alcohol intake frequency: few times a week Vitals/I&O/Wt Last Vital Signs Temp 96.8 F L 09/04/20 09:55 Pulse 83 09/04/20 17:55 Resp 22 H 09/04/20 17:55 BP 165/82 09/04/20 18:00 Pulse Ox 97 09/04/20 18:00 09/04/20 09/04/20 09/04/20 06:59 14:59 22:59 Intake Total 1010 / 1010 Output Total 200 / 200 1200 / 1200 600 / 1800 Balance -200 / -200 -190 / -190 -600 / -790 Weight last 48 hrs Weight 195 lb 1.6 oz Weight 195 lb 1 oz Weight 198 lb Physical Exam Narrative: EXAM NARRATIVE: GENERAL: The patient is alert and oriented times three. Not in any acute distress. HEENT: No significant pallor, icterus or lymphadenopathy. The pupils are symmetrical oral cavity: There are no mucous membrane lesions. Funduscopic ex amination: The fundus is not visualized NECK: Trachea appears to be central. No masses noted. No JVD or thyromegaly appreciated. No carotid bruit. RESPIRATORY: Chest is symmetrical. No intercostals muscle retraction or any accessory muscle activation. There is no chest wall tenderness. Breath sounds are heard bilaterally. No rales or rhonchi heard. No evidence of any consolidation. BREASTS: Deferred. HEART: The PMI is in the 5th left intercostals space just inside the midclavicular line. No palpable precordial events. S1 and S2 are normal. No S3 or S4 heard. No pericardial rub or any click heard. Short systolic murmur in the mitral area. No diastolic murmurs. ABDOMEN: No vessel pulsations or distention. No tenderness. No organomegaly appreciated. No abdominal bruit. Bowel sounds are normally heard. : Deferred. RECTAL: Deferred. LYMPHATIC: No lymphadenopathy noted in the neck or groin. EXTREMITIES: Trace edema with no cyanosis. No clubbing. The dorsalis pedis and posterior pulses are palpable but somewhat weak bilaterally. MUSCULOSKELETAL: No acute joint deformities or swelling. SKIN: There are no significant scars or skin rash noted. NEUROPSYCHIATRIC: The patient is alert and oriented x3. Appears to be in a good mood. The higher functions are grossly within normal limits. No tremors or rigidity noted. Data Labs: Other Labs: Laboratory Last Values WBC 18.5 10^3/uL (4.0 -10.0) H 09/04/20 00:48 RBC 4.09 10^6/uL (4.1 -5.3) L 09/04/20 00:48 Hgb 13.6 g/dL (11.7-1 6.6) 09/04/20 00:48 Hct 41.3 % (42.0-52.0 ) L 09/04/20 00:48 MCV 101.0 fL (80-94) H 09/04/20 00:48 MCH 33.3 pg (28.0-34. 0) 09/04/20 00:48 MCHC 32.9 g/dL (30.0-3 6.0) 09/04/20 00:48 RDW 12.8 % (12.1-15.1 ) 09/04/20 00:48 Plt Count 206 10^3/cmm (130 -400) 09/04/20 00:48 MPV 10.7 fL (7.4-10.4 ) H 09/04/20 00:48 Neut % (Auto) 85.2 % 09/04/20 00:48 Lymph % (Auto) 6.9 % 09/04/20 00:48 Routt % (Auto) 5.6 % 09/04/20 00:48 Eos % (Auto) 1.7 % 09/04/20 00:48 Baso % (Auto) 0.2 % 09/04/20 00:48 Neut # (Auto) 15.77 10^3/uL (1. 8-7.7) H 09/04/20 00:48 Lymph # (Auto) 1.3 10^3/uL (0.8- 4.8) 09/04/20 00:48 Routt # (Auto) 1.0 10^3/uL (0.2- 0.9) H 09/04/20 00:48 Eos # (Auto) 0.3 10^3/uL (0.0- 0.8) 09/04/20 00:48 Baso # (Auto) 0.0 10^3/uL (0.0- 0.1) 09/04/20 00:48 Nucleated RBC % (a uto) 0 % 09/04/20 00:48 Nucleated RBCs # 0.0 /100WBC 09/04/20 00:48 PT 14.10 SECONDS (12 .1-14.9) 09/04/20 00:48 INR 1.06 (0.8-1.2) 09/04/20 00:48 D-Dimer 0.54 ug/mIFEU (0- 0.59) 09/04/20 00:48 Specimen Type Arterial 09/04/20 00:50 Sample Site Radial, right 09/04/20 00:50 ABG pH 7.35 (7.35-7.45) 09/04/20 00:50 ABG pCO2 41.3 mmHg (35-45) 09/04/20 00:50 ABG pO2 71.1 mmHg (80.0-1 00.0) L 09/04/20 00:50 ABG HCO3 22.8 mmol/L (22-2 6) 09/04/20 00:50 ABG Base Excess -2.8 mmol/L (-2.0 -2.0) L 09/04/20 00:50 Viraj Test Pos 09/04/20 00:50 Hematocrit 41.7 % (42-52) L 09/04/20 00:50 Hgb O2 Saturation 91.8 % (95-100) L 09/04/20 00:50 Carboxyhemoglobin 1.9 %THgb (0.4-20 .1) 09/04/20 00:50 Methemoglobin 0.9 % (0.4-1.5) 09/04/20 00:50 Total Hemoglobin 13.6 g/dL (14-18) L 09/04/20 00:50 O2 Delivery Device Nc 09/04/20 00:50 O2 Liters/Min 2.0 % 09/04/20 00:50 Stone Circular Sawyer ID ellpe 09/04/20 00:50 Sodium 134 mmol/L (136-1 45) L 09/04/20 00:48 Potassium 4.0 mmol/L (3.5-5 .1) 09/04/20 00:48 Chloride 98 mmol/L (98-107 ) 09/04/20 00:48 Carbon Dioxide 22 mmol/L (22-29) 09/04/20 00:48 Anion Gap 18.0 (5-19) 09/04/20 00:48 BUN 7 mg/dL (8-23) L 09/04/20 00:48 Creatinine 0.7 mg/dL (0.7-1. 2) 09/04/20 00:48 GFR Calculation Not Reportable 09/04/20 00:48 Glucose 211 mg/dL (65-115 ) H 09/04/20 00:48 POC Glucose 220 mg/dL (70-110 ) H 09/04/20 17:58 Calculated Osmolal ity 282 mOsm/kg (285- 295) L 09/04/20 00:48 Calcium 8.6 mg/dL (8.5-10 .5) 09/04/20 00:48 Total Bilirubin 0.5 mg/dL (0.15-1 .2) 09/04/20 00:48 AST 22 U/L (0-40) 09/04/20 00:48 ALT 15 U/L (0-41) 09/04/20 00:48 Alkaline Phosphata se 74 IU/L (40-130) 09/04/20 00:48 Troponin T Baselin e 112 ng/L (0-15) H* 09/04/20 00:48 Troponin T 120 Min celso 131.1 ng/L (0-15) H 09/04/20 02:25 Delta Troponin T 19.1 ABS# (0-10) H* 09/04/20 02:25 Troponin T Hi Sens 6Hr 261.3 ng/L (0-15) H 09/04/20 07:23 Troponin T Hi Sens 6Hr Delta 149.3 ng/L (0-12) H* 09/04/20 07:23 NT-Pro-B Natriuret Pep 4506 pg/mL (0-125 ) H 09/04/20 00:48 Total Protein 6.9 g/dL (6.6-8.7 ) 09/04/20 00:48 Albumin 4.1 g/dL (3.5-5.2 ) 09/04/20 00:48 Globulin 2.8 g/dL (1.3-4.6 ) 09/04/20 00:48 Procalcitonin 0.04 ng/mL (0-0.5 ) 09/04/20 00:48 SARS-CoV-2 Ag (Rap id) Negative (Negati ve) 09/04/20 01:33 Micro: Micro: Microbiology 09/04/20 04:50 Bacterial Antigens - Final Urine,Voided 09/04/20 04:50 Legionella Urinary Antigen - Final Urine,Voided 09/04/20 02:20 Blood Culture - Pr eliminary Blood SPECIMEN [facility] 09/04/20 02:25 Blood Culture - Pr eliminary Blood SPECIMEN [facility] A&P Assessment and plan (1) Acute non-ST elevation myocardial infarction (NSTEMI): Patient's clinical features are suggestive of a non-ST elevation myocardial infarction. Most likely this might have caused the acute heart failure. Hemodynamically seems to be stable. He may be treated with subcu Lovenox, Plavix, aspirin, beta-char, statin and other symptomatic measures. Patient had an echocardiogram. I will review the echocardiogram. Status: Acute (2) Acute on chronic diastolic (congestive) heart failure: Patient may be carefully treated with IV diuretics and other symptomatic measures. Status: Acute (3) Dyslipidemia (high LDL; low HDL): May continue on the current statin. Status: Acute (4) Essential hypertension: Currently the blood pressure is a stage II. We will optimize the antihypertensive medications. Status: Acute Additional A&P Information Based on the patient's the clinical progress and the results of the above, further recommendations will be made. Thank you for the opportunity to eval this patient make this recommendation. Consult Attestations Medical Necessity Statement: Patient requires continued hospital stay for close monitoring and further management Coding Level of Care Code Acute Report Checker for [facility] Diagnoses Acute non-ST elevation myocardial infarction (NSTEMI) I21.4 Acute on chronic diastolic (congestive) heart failure I50.33 Dyslipidemia (high LDL; low HDL) E78.5 Essential hypertension I10
[2020-09-04 21:07] LABS: Glucose Point of Care 272 mg/dL (70-110)
[2020-09-04] MEDS: sodium chloride 0.9% 1,000 ML 50 ML IV (21:49)
[2020-09-05] VITALS (119 sets, daily range): BP systolic 107–173; BP diastolic 54–105; PULSE 60–118; RESP 0–30; TEMP 36.5–36.6; O2SAT 90–100; BMI 29.6
[2020-09-05] MEDS: enoxaparin 100 mg/mL Syringe 90 MG SUBCUT ×2 (02:55→15:50)
[2020-09-05 03:57] LABS: Basophils % 0.1 %; Eosinophils % 0.1 %; Hematocrit 34.4 % (42.0-52.0); Hemoglobin 11.6 g/dL (11.7-16.6); Lymphocytes # 1.2 10^3/uL (0.8-4.8); Lymphocytes % 9.4 %; Mean Corpuscular HGB Conc 33.7 g/dL (30.0-36.0); Mean Corpuscular Hemoglobin 32.9 pg (28.0-34.0); Mean Corpuscular Volume 97.5 fL (80-94); Monocytes # 1.3 10^3/uL (0.2-0.9); Monocytes % 9.9 %; Neutrophils # 10.15 10^3/uL (1.8-7.7); Nucleated Red Blood Cells % 0 %; Platelet Count 198 10^3/cmm (130-400); Red Blood Count 3.53 10^6/uL (4.1-5.3); Red Cell Distribution Width 12.7 % (12.1-15.1); White Blood Count 12.7 10^3/uL (4.0-10.0)
[2020-09-05 04:14] LABS: Alanine Aminotransferase 13 U/L (0-41); Albumin Level 3.5 g/dL (3.5-5.2); Alkaline Phosphatase 61 IU/L (40-130); Anion Gap 13.7 (5-19); Aspartate Amino Transferase 24 U/L (0-40); Blood Urea Nitrogen 10 mg/dL (8-23); Calcium 8.2 mg/dL (8.5-10.5); Carbon Dioxide 26 mmol/L (22-29); Chloride 99 mmol/L (98-107); Globulin 2.3 g/dL (1.3-4.6); Glucose 159 mg/dL (65-115); Osmolality Calculated 282 mOsm/kg (285-295); Potassium 3.7 mmol/L (3.5-5.1); Sodium 135 mmol/L (136-145); Total Bilirubin 0.4 mg/dL (0.15-1.2); Total Protein 5.8 g/dL (6.6-8.7)
[2020-09-05 07:58] LABS: Glucose Point of Care 151 mg/dL (70-110)
[2020-09-05] MEDS: cefTRIAXone 1,000 MG in sodium chloride 0.9% (plus) 50 ML 100 MG IV (08:54)
[2020-09-05] MEDS: tamsulosin 0.4 mg Capsule PO (08:55)
[2020-09-05] MEDS: atorvastatin 40 mg Tablet 80 MG PO (08:55)
[2020-09-05] MEDS: azithromycin 250 mg Tablet 500 MG PO (08:56)
[2020-09-05] MEDS: aspirin 81 mg EC Tablet PO (08:56)
[2020-09-05] MEDS: FUROsemide 40 mg Tablet PO (08:56)
[2020-09-05] MEDS: clopidogrel 75 mg Tablet PO (08:56)
[2020-09-05] MEDS: predniSONE 20 mg Tablet 40 MG PO (08:56)
--- NOTE | 2020-09-05 09:30 | PC.NURSE ---
5426 Dr Peres notified requesting Nystatin for bilateral groin. Pt requesting laxative. States multiple attempts to have BM but stool is hard and ball-shaped. Orders received.
--- NOTE | 2020-09-05 09:40 | PC.NURSE ---
0940 Pt's HR increased to 110's. Went and assessed pt. Pt c/o SOB but denies CP or any other pain. Stated he was wrestling with my covers. Auscultated lungs. Wheezes audible. O2 94%. BP 155/96. Pt has been on RA entire shift with HR in 60's and 70's. Placed pt on 3L NC. RT on unit. Requested presence. RT placed on BiPap. Dr Peres notified. IVF discontinued. Transfer held.
--- NOTE | 2020-09-05 10:03 | XR_ITS ---
WS: [id number] Portable AP upright chest, 09/05/2020 Clinical Data: hypoxia Comparison: Portable chest, 09/04/2020 Findings: The heart remains enlarged. There is a small left pleural effusion. Monitor leads are on th e chest wall. The permanent pacemaker remains in the same position. No pneumonia or pneumothorax is s een. The pulmonary vascularity is not increased. XR/XR chest 1V portable [id number] Impression: No change in cardiomegaly and left pleural effusion.
[2020-09-05] MEDS: LORazepam 2 mg/mL INJ 1 mL 0.5 MG IVP (10:19)
[2020-09-05] MEDS: ipratropium-albuterol 3 mL Neb INHALATION ×2 (10:41→20:14)
--- NOTE | 2020-09-05 11:27 | PM.PN ---
Subjective Subjective: Interval history: This morning he was doing well, denies chest pain or pressure. Breathing continue to improve. He weaned down to room air. He states he had detailed discussion with cardiology and they planned for coronary angiogram later this afternoon. Later in the morning not long after receiving Rocephin dose reported to be getting more short of breath, with noted wheezing. Placed on BiPAP with improvement in tachycardia. Noted anxious. Vitals/I&O/Wt Last Vital Signs Temp 97.7 F 09/05/20 03:00 Pulse 118 H 09/05/20 11:24 Resp 22 H 09/05/20 10:41 BP 155/96 09/05/20 09:30 Pulse Ox 98 09/05/20 11:24 09/04/20 09/05/20 09/05/20 22:59 06:59 14:59 Intake Total 240 / 240 Output Total 1050 / 2250 Balance -1050 / -1240 240 / 240 Weight last 48 hrs Weight 88.496 kg Weight 88.496 kg Weight 88.479 kg Weight 89.811 kg Physical Exam Const: COMMON NORMALS: no acute distress and patient oriented x3 HENMT: COMMON NORMALS: oropharynx normal OTHER: Old scar or possibly pressure injury on the bridge of the nose. Neck/C-Spine: COMMON NORMALS: no JVD Resp: COMMON NORMALS: normal respiratory effort and clear to auscultation bilaterally AUSCULTATION: clear to auscultation bilaterally Cardio: COMMON NORMALS: no JVD, regular rhythm, S1 normal heart sound present, S2 normal heart sound present and No murmurs present (Cardio) RHYTHM: regular rhythm HEART SOUNDS: S1 normal heart sound present and S2 normal heart sound present GI: COMMON NORMALS: Normal to inspection, nondistended, normoactive bowel sounds present, Soft to palpation and non-tender PALPATION: Yes Soft to palpation Extremity: COMMON NORMALS: no joint enlargement GENERAL: Yes edema (1+) Neuro: COMMON NORMALS: patient oriented x3 and moves all extremities Skin: COMMON NORMALS: no rashes or lesions noted GENERAL SKIN EXAM: no rashes or lesions noted Data : 09/05/20 03:22 09/05/20 03:22 Micro: Microbiology 09/04/20 02:20 Blood Culture - Preliminary Blood NEGATIVE TO DATE 09/04/20 02:25 Blood Culture - Preliminary Blood NEGATIVE TO DATE 09/04/20 04:50 Bacterial Antigens - Final Urine,Voided 09/04/20 04:50 Legionella Urinary Antigen - Final Urine,Voided A&P Assessment and plan (1) Acute respiratory failure with hypoxia: Hyper this most likely secondary to heart failure following acute [place]. Additional assessment and possible intervention planned by cardiology and him. Later this morning despite there is improvement in weaning down to room air, becomes more dyspneic, with noted wheezing. This appears to be not long after receiving Rocephin. I spoke may have pulmonary edema secondary to infusion of low-grade IVF, and Rocephin, although cannot rule out reaction to Rocephin also is with some bronchoconstriction. Receiving breathing treatment. Placed back on BiPAP. Will discontinue Rocephin. DC IV fluid. Will change antibiotic to Levaquin. Low-dose Ativan for anxiety. Heart rate appears to be improving. Repeat chest x-ray. Delay transfer to CSU for now until we see that respiratory status is stabilizing. D-dimer not elevated. Status: Acute (2) Non-ST elevation [place] (NSTEMI): Coronary angiography today. Continue aspirin, statin, Plavix, therapeutic Lovenox, beta-char had been held due to acute CHF. Status: Acute (3) CHF exacerbation: Continue Lasix. DC IV fluid. Change antibiotics to oral. EF noted 36%, grade 1 diastolic dysfunction, thickened aortic and mitral valves, mild MR. Additional assessment by coronary angiography as above. Continue treatment for non-STEMI, pneumonia. Status: Acute (4) Pneumonia: Community-acquired pneumonia, appears in left lower lobe. Appears to very easily go into fluid overload. Discontinue IV antibiotics. Transition to oral antibiotic for now. If continues to improve, consider de-escalation of antibiotic entirely. Follow-up cultures. Status: Acute (5) Sepsis: Leukocytosis improving. Continue treatment for possible pneumonia, although with his symptoms, non-STEMI, suspect more rested failure related to CHF, and WBC may be reactive. Procalcitonin 0.04. If continues to improve, leukocytosis resolving, consider de-escalating antibiotic. Follow-up cultures. Continue oxygen support, wean down as tolerating. Status: Acute Additional A&P Information Coronary artery disease: History of stent placement. Type 2 diabetes: No medications on hold. SSI. History of hypertension: Continue lisinopril BPH: Continue tamsulosin Possible pressure injury on the bridge of the nose: avoid additional injury Cardiac/consistent carb diet DVT prophylaxis -on Lovenox Full code Attestations Medical Necessity Statement*: Continue admission for assessment of management of hypoxic respiratory failure, CHF, NSTEMI, and possible pneumonia. 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
[2020-09-05 14:01] LABS: Glucose Point of Care 212 mg/dL (70-110)
[2020-09-05 16:05] LABS: Glucose Point of Care 178 mg/dL (70-110)
[2020-09-05 17:15] LABS: Glucose Point of Care 227 mg/dL (70-110)
[2020-09-05] MEDS: nystatin cream 30 gm 1 APPLIC TOPICAL (17:42)
[2020-09-05] MEDS: polyethylene glycol 3350 Pkt 17 gm PO (17:42)
[2020-09-05] MEDS: losartan 50 mg Tablet 25 MG PO (18:38)
--- NOTE | 2020-09-05 18:58 | PC.NURSE ---
transferred into room 111-1 from icu via w/c at 1835.report received.alert and awake.oriented x 4.denies pain at present.v-paced on monitor.oriented to room environment.instructed to contact staff for any sob,cp,or for any concerns at all.pt verb understanding of instructions.
--- NOTE | 2020-09-05 19:41 | PM.PN ---
Subjective Subjective: Interval history: The patient is feeling much better. The shortness of breath has significantly improved. Denies any fever or chills. No cough. No headache or blurring of vision. No abdominal pain no other specific complaints. Medications: Reviewed: Yes Medication Review Details: Current Medications Acetaminophen (Acetaminophen 325 Mg Tablet) 325 mg PO Q4H PRN PRN Reason: MILD PAIN OR INCREASE TEMP Last Admin: 09/04/20 18:38 Dose: 325 mg Documented by: Albuterol/Ipratropium (Ipratropium-Albuterol 3 Ml Neb) 3 ml INHALATION Q6H PRN PRN Reason: SHORTNESS OF BREATH Last Admin: 09/05/20 10:41 Dose: 3 ml Documented by: Aspirin (Aspirin 81 Mg Ec Tablet) 81 mg PO DAILY [facility] Last Admin: 09/05/20 08:56 Dose: 81 mg Documented by: Atorvastatin Calcium (Atorvastatin 40 Mg Tablet) 80 mg PO DAILY [facility] Last Admin: 09/05/20 08:55 Dose: 80 mg Documented by: Clopidogrel Bisulfate (Clopidogrel 75 Mg Tablet) 75 mg PO DAILY [facility] Last Admin: 09/05/20 08:56 Dose: 75 mg Documented by: Dextrose (Dextrose 50% Syringe 50 Ml) 25 ml IVP ONCE PRN; Protocol PRN Reason: hypoglycemia protocol Dextrose (Dextrose 50% Syringe 50 Ml) 50 ml IVP PRN PRN; Protocol PRN Reason: hypoglycemia protocol Diphenhydramine HCl (Diphenhydramine 50 Mg Capsule) 50 mg PO ONCE ONE Stop: 09/06/20 08:01 Enoxaparin Sodium (Enoxaparin 100 Mg/Ml Syringe) 90 mg 1 mg/kg (90 mg) SUBCUT Q12H TIM Last Admin: 09/05/20 15:50 Dose: 90 mg Documented by: Furosemide (Furosemide 40 Mg Tablet) 40 mg PO DAILY TIM Last Admin: 09/05/20 08:56 Dose: 40 mg Documented by: Glucagon (Glucagon 1 Mg/Ml Inj 1 Ml) 1 mg IM ONCE PRN; Protocol PRN Reason: Adult Acute Hypoglycemia Prot. Dextrose (D5w) 500 mls @ 100 mls/hr IV ONCE PRN; Protocol PRN Reason: Adult Acute Hypoglycemia Prot Insulin Aspart (Insulin Aspart 100 Unit/1 Ml) 0 unit SUBCUT WM&BEDTIME [facility]; Protocol Last Admin: 09/05/20 17:42 Dose: 8 unit Documented by: Levofloxacin (Levofloxacin 750 Mg Tablet) 750 mg PO DAILY@0600 [facility]; Protocol Lorazepam (Lorazepam 2 Mg/Ml Inj 1 Ml) 0.5 mg IVP Q4H PRN PRN Reason: ANXIETY Last Admin: 09/05/20 10:19 Dose: 0.5 mg Documented by: Losartan Potassium (Losartan 50 Mg Tablet) 25 mg PO DAILY [facility] Nystatin (Nystatin Cream 30 Gm) 1 applic TOPICAL BID [facility] Last Admin: 09/05/20 17:42 Dose: 1 applic Documented by: Polyethylene Glycol (Polyethylene Glycol 3350 Pkt 17 Gm) 17 gm PO BID [facility] Last Admin: 09/05/20 17:42 Dose: 17 gm Documented by: Prednisone (Prednisone 20 Mg Tablet) 40 mg PO DAILY [facility] Last Admin: 09/05/20 08:56 Dose: 40 mg Documented by: Tamsulosin HCl (Tamsulosin 0.4 Mg Capsule) 0.4 mg PO DAILY [facility] Last Admin: 09/05/20 08:55 Dose: 0.4 mg Documented by: Vitals/I&O/Wt Last Vital Signs Temp 97.7 F 09/05/20 03:00 Pulse 94 09/05/20 19:00 Resp 16 09/05/20 19:00 BP 167/99 09/05/20 19:00 Pulse Ox 97 09/05/20 18:06 09/05/20 09/05/20 09/05/20 06:59 14:59 22:59 Intake Total 240 / 240 1290 / 1530 Output Total 1400 / 1400 Balance -1160 / -1160 1290 / 130 Weight last 48 hrs Weight 195 lb 1.6 oz Weight 195 lb 1.6 oz Weight 195 lb 1 oz Weight 198 lb Physical Exam Narrative: EXAM NARRATIVE: GENERAL: The patient is alert and oriented times three. Not in any acute distress. HEENT: No significant pallor, icterus or lymphadenopathy.Oral cavity: There are no mucous membrane lesions. NECK: Trachea appears to be central. No masses noted. No JVD or thyromegaly appreciated. RESPIRATORY: Chest is symmetrical. No intercostals muscle retraction or any accessory muscle activation. There is no chest wall tenderness. Breath sounds are heard bilaterally. No rales or rhonchi heard. No evidence of any consolidation. BREASTS: Deferred. HEART: The heart sounds are normal. No S3 or S4. Short systolic murmur the left sternal border. No diastolic murmurs. No pericardial rub ABDOMEN: No vessel pulsations or distention. No tenderness. No organomegaly appreciated. Bowel sounds are normally heard. : Deferred. RECTAL: Deferred. LYMPHATIC: No lymphadenopathy noted in the neck or groin. EXTREMITIES: No edema or cyanosis. No clubbing. Peripheral pulses are palpated in fairly good volume and amplitude MUSCULOSKELETAL: No acute joint deformities or swelling SKIN: There are no significant rashes or ecchymosis NEUROPSYCHIATRIC: The patient is alert and oriented x3. Appears to be in a good mood. No tremors or rigidity noted. Data : 09/05/20 03:22 09/05/20 03:22 Other Labs: Laboratory Last Values WBC 12.7 10^3/uL (4.0-10.0) H 09/05/20 03:22 RBC 3.53 10^6/uL (4.1-5.3) L 09/05/20 03:22 Hgb 11.6 g/dL (11.7-16.6) L 09/05/20 03:22 Hct 34.4 % (42.0-52.0) L 09/05/20 03:22 MCV 97.5 fL (80-94) H 09/05/20 03:22 MCH 32.9 pg (28.0-34.0) 09/05/20 03:22 MCHC 33.7 g/dL (30.0-36.0) 09/05/20 03:22 RDW 12.7 % (12.1-15.1) 09/05/20 03:22 Plt Count 198 10^3/cmm (130-400) 09/05/20 03:22 MPV 11.0 fL (7.4-10.4) H 09/05/20 03:22 Neut % (Auto) 80.0 % 09/05/20 03:22 Lymph % (Auto) 9.4 % 09/05/20 03:22 [place] % (Auto) 9.9 % 09/05/20 03:22 Eos % (Auto) 0.1 % 09/05/20 03:22 Baso % (Auto) 0.1 % 09/05/20 03:22 Neut # (Auto) 10.15 10^3/uL (1.8-7.7) H 09/05/20 03:22 Lymph # (Auto) 1.2 10^3/uL (0.8-4.8) 09/05/20 03:22 [place] # (Auto) 1.3 10^3/uL (0.2-0.9) H 09/05/20 03:22 Eos # (Auto) 0.0 10^3/uL (0.0-0.8) 09/05/20 03:22 Baso # (Auto) 0.0 10^3/uL (0.0-0.1) 09/05/20 03:22 Nucleated RBC % (auto) 0 % 09/05/20 03: Nucleated RBCs # 0.0 /100WBC 09/05/20 03:22 PT 14.10 SECONDS (12.1-14.9) 09/04/20 00:48 INR 1.06 (0.8-1.2) 09/04/20 00:48 D-Dimer 0.54 ug/mIFEU (0-0.59) 09/04/20 00:48 Specimen Type Arterial 09/04/20 00:50 Sample Site Radial, right 09/04/20 00:50 ABG pH 7.35 (7.35-7.45) 09/04/20 00:50 ABG pCO2 41.3 mmHg (35-45) 09/04/20 00:50 ABG pO2 71.1 mmHg (80.0-100.0) L 09/04/20 00:50 ABG HCO3 22.8 mmol/L (22-26) 09/04/20 00:50 ABG Base Excess -2.8 mmol/L (-2.0-2.0) L 09/04/20 00:50 Viraj Test Pos 09/04/20 00:50 Hematocrit 41.7 % (42-52) L 09/04/20 00:50 Hgb O2 Saturation 91.8 % (95-100) L 09/04/20 00:50 Carboxyhemoglobin 1.9 %THgb (0.4-20.1) 09/04/20 00:50 Methemoglobin 0.9 % (0.4-1.5) 09/04/20 00:50 Total Hemoglobin 13.6 g/dL (14-18) L 09/04/20 00:50 O2 Delivery Device Nc 09/04/20 00:50 O2 Liters/Min 2.0 % 09/04/20 00:50 Lead Former ID yash 09/04/20 00:50 Sodium 135 mmol/L (136-145) L 09/05/20 03:22 Potassium 3.7 mmol/L (3.5-5.1) 09/05/20 03:22 Chloride 99 mmol/L (98-107) 09/05/20 03:22 Carbon Dioxide 26 mmol/L (22-29) 09/05/20 03:22 Anion Gap 13.7 (5-19) 09/05/20 03:22 BUN 10 mg/dL (8-23) 09/05/20 03:22 Creatinine 0.6 mg/dL (0.7-1.2) L 09/05/20 03:22 GFR Calculation Not Reportable 09/05/20 03:22 Glucose 159 mg/dL (65-115) H 09/05/20 03:22 POC Glucose 227 mg/dL (70-110) H 09/05/20 17:13 Calculated Osmolality 282 mOsm/kg (285-295) L 09/05/20 03:22 Calcium 8.2 mg/dL (8.5-10.5) L 09/05/20 03:22 Total Bilirubin 0.4 mg/dL (0.15-1.2) 09/05/20 03:22 AST 24 U/L (0-40) 09/05/20 03:22 ALT 13 U/L (0-41) 09/05/20 03:22 Alkaline Phosphatase 61 IU/L (40-130) 09/05/20 03:22 Troponin T Baseline 112 ng/L (0-15) H* 09/04/20 00:48 Troponin T 120 Minute 131.1 ng/L (0-15) H 09/04/20 02:25 Delta Troponin T 19.1 ABS# (0-10) H* 09/04/20 02:25 Troponin T Hi Sens 6Hr 261.3 ng/L (0-15) H 09/04/20 07:23 Troponin T Hi Sens 6Hr Delta 149.3 ng/L (0-12) H* 09/04/20 07:23 NT-Pro-B Natriuret Pep 4506 pg/mL (0-125) H 09/04/20 00:48 Total Protein 5.8 g/dL (6.6-8.7) L 09/05/20 03:22 Albumin 3.5 g/dL (3.5-5.2) 09/05/20 03:22 Globulin 2.3 g/dL (1.3-4.6) 09/05/20 03:22 Procalcitonin 0.04 ng/mL (0-0.5) 09/04/20 00:48 SARS-CoV-2 Ag (Rapid) Negative (Negative) 09/04/20 01:33 Micro: Microbiology 09/04/20 02:20 Blood Culture - Preliminary Blood NEGATIVE TO DATE 09/04/20 02:25 Blood Culture - Preliminary Blood NEGATIVE TO DATE Echo: My impression: The echocardiogram from 09/04/2020 revealed Multiple wall motion of abnormalities with a diminished ejection fraction of around 36% . Grade I/IV diastolic dysfunction (abnormal relaxation filling pattern), normal to mildly elevated filling pressures. Thickened aortic and mitral valves. Mild mitral valve regurgitation. Pacemaker wire in the right atrium and right ventricle. There is no pericardial effusion. Technically somewhat difficult study because of the poor ultrasonic window. There are no prior echocardiogram studies to compare. A&P Assessment and plan (1) Acute non-ST elevation myocardial infarction (NSTEMI): Patient's clinical features are suggestive of a non-ST elevation myocardial infarction. Most likely this might have caused the acute heart failure. Hemodynamically seems to be stable. We May continue on the subcu Lovenox, Plavix, aspirin, beta-char, statin and other symptomatic measures. The echocardiogram was reviewed. In view of the multiple wall motion normalities and diminished LV ejection fraction, we may do a myocardial perfusion imaging, to look for any significant coronary ischemia. Based on the results of the perfusion scan, further management decisions will be made. Status: Acute (2) Acute on chronic diastolic (congestive) heart failure: Patient may be carefully treated with IV diuretics and other symptomatic measures. We may switch from IV Lasix to p.o. Lasix. Status: Acute (3) Dyslipidemia (high LDL; low HDL): May continue on the current statin. Status: Acute (4) Essential hypertension: The blood pressure is a stage II. We will continue to optimize the antihypertensive medications. Status: Acute Additional A&P Information Based on the patient's the clinical progress and the results of the above, further management decisions will be made. 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
[2020-09-05 21:44] LABS: Glucose Point of Care 360 mg/dL (70-110)
[2020-09-06] VITALS (39 sets, daily range): BP systolic 110–170; BP diastolic 52–99; PULSE 63–108; RESP 15–26; TEMP 36.4–37.4; O2SAT 91–98
--- NOTE | 2020-09-06 03:49 | PC.NURSE ---
Spoke with Dr. Brunner regarding this patient's lovenox prior to a possible left heart cath in the AM. Received order to hold medication.
--- NOTE | 2020-09-06 04:09 | PC.NURSE ---
Patient is currently complaining of some abdominal discomfort and states that it has been several days since he has had a bowel movement despite miralax BID. Pt requesting something further. Spoke with Dr. Brunner regarding this matter... see MAR for order.
[2020-09-06] MEDS: magnesium citrate Btl 296 mL 150 ML PO (04:39)
[2020-09-06 05:17] LABS: Basophils % 0.2 %; Eosinophils % 0.2 %; Hematocrit 35.6 % (42.0-52.0); Hemoglobin 11.8 g/dL (11.7-16.6); Lymphocytes # 1.5 10^3/uL (0.8-4.8); Lymphocytes % 16.2 %; Mean Corpuscular HGB Conc 33.1 g/dL (30.0-36.0); Mean Corpuscular Hemoglobin 33.3 pg (28.0-34.0); Mean Corpuscular Volume 100.6 fL (80-94); Mean Platelet Volume 10.7 fL (7.4-10.4); Monocytes # 0.8 10^3/uL (0.2-0.9); Monocytes % 9.3 %; Neutrophils # 6.68 10^3/uL (1.8-7.7); Neutrophils % 73.9 %; Nucleated Red Blood Cells % 0 %; Platelet Count 184 10^3/cmm (130-400); Red Blood Count 3.54 10^6/uL (4.1-5.3); Red Cell Distribution Width 12.7 % (12.1-15.1); White Blood Count 9.1 10^3/uL (4.0-10.0)
[2020-09-06 05:27] LABS: Alanine Aminotransferase 12 U/L (0-41); Albumin Level 3.6 g/dL (3.5-5.2); Alkaline Phosphatase 57 IU/L (40-130); Anion Gap 10.5 (5-19); Aspartate Amino Transferase 16 U/L (0-40); Blood Urea Nitrogen 11 mg/dL (8-23); Calcium 8.6 mg/dL (8.5-10.5); Carbon Dioxide 30 mmol/L (22-29); Chloride 97 mmol/L (98-107); Globulin 2.3 g/dL (1.3-4.6); Glucose 101 mg/dL (65-115); Osmolality Calculated 278 mOsm/kg (285-295); Potassium 3.5 mmol/L (3.5-5.1); Sodium 134 mmol/L (136-145); Total Bilirubin 0.5 mg/dL (0.15-1.2); Total Protein 5.9 g/dL (6.6-8.7)
[2020-09-06 06:51] LABS: Glucose Point of Care 166 mg/dL (70-110)
[2020-09-06] MEDS: levoFLOXacin 750 mg Tablet PO (07:11)
[2020-09-06] MEDS: predniSONE 20 mg Tablet 40 MG PO (08:44)
[2020-09-06] MEDS: atorvastatin 40 mg Tablet 80 MG PO (08:44)
[2020-09-06] MEDS: aspirin 81 mg EC Tablet PO (08:44)
[2020-09-06] MEDS: tamsulosin 0.4 mg Capsule PO (08:44)
[2020-09-06] MEDS: losartan 50 mg Tablet 25 MG PO (08:45)
[2020-09-06] MEDS: clopidogrel 75 mg Tablet PO (08:45)
[2020-09-06] MEDS: FUROsemide 40 mg Tablet PO (08:45)
[2020-09-06] MEDS: polyethylene glycol 3350 Pkt 17 gm PO (08:45)
[2020-09-06] MEDS: ipratropium-albuterol 3 mL Neb INHALATION ×3 (08:46→20:26)
[2020-09-06] MEDS: nystatin cream 30 gm 1 APPLIC TOPICAL (09:10)
--- NOTE | 2020-09-06 09:30 | PM.PN ---
Subjective Subjective: Interval history: The patient is feeling okay with no chest pain or chest tightness. He continues to have the shortness of breath. Denies any fever or chills. No cough. No other specific complaints. Medications: Reviewed: Yes Medication Review Details: Current Medications Acetaminophen (Acetaminophen 325 Mg Tablet) 325 mg PO Q4H PRN PRN Reason: MILD PAIN OR INCREASE TEMP Last Admin: 09/04/20 18:38 Dose: 325 mg Documented by: Albuterol/Ipratropium (Ipratropium-Albuterol 3 Ml Neb) 3 ml INHALATION Q6H PRN PRN Reason: SHORTNESS OF BREATH Last Admin: 09/06/20 08:46 Dose: 3 ml Documented by: Aspirin (Aspirin 81 Mg Ec Tablet) 81 mg PO DAILY [facility] Last Admin: 09/06/20 08:44 Dose: 81 mg Documented by: Atorvastatin Calcium (Atorvastatin 40 Mg Tablet) 80 mg PO DAILY [facility] Last Admin: 09/06/20 08:44 Dose: 80 mg Documented by: Clopidogrel Bisulfate (Clopidogrel 75 Mg Tablet) 75 mg PO DAILY [facility] Last Admin: 09/06/20 08:45 Dose: 75 mg Documented by: Dextrose (Dextrose 50% Syringe 50 Ml) 25 ml IVP ONCE PRN; Protocol PRN Reason: hypoglycemia protocol Dextrose (Dextrose 50% Syringe 50 Ml) 50 ml IVP PRN PRN; Protocol PRN Reason: hypoglycemia protocol Enoxaparin Sodium (Enoxaparin 100 Mg/Ml Syringe) 90 mg 1 mg/kg (90 mg) SUBCUT Q12H [facility] Last Admin: 09/06/20 03:47 Dose: Not Given Documented by: Furosemide (Furosemide 40 Mg Tablet) 40 mg PO DAILY [facility] Last Admin: 09/06/20 08:45 Dose: 40 mg Documented by: Glucagon (Glucagon 1 Mg/Ml Inj 1 Ml) 1 mg IM ONCE PRN; Protocol PRN Reason: Adult Acute Hypoglycemia Prot. Dextrose (D5w) 500 mls @ 100 mls/hr IV ONCE PRN; Protocol PRN Reason: Adult Acute Hypoglycemia Prot Insulin Aspart (Insulin Aspart 100 Unit/1 Ml) 0 unit SUBCUT WM&BEDTIME [facility]; Protocol Last Admin: 09/06/20 08:02 Dose: Not Given Documented by: Levofloxacin (Levofloxacin 750 Mg Tablet) 750 mg PO DAILY@0600 [facility]; Protocol Last Admin: 09/06/20 07:11 Dose: 750 mg Documented by: Lorazepam (Lorazepam 2 Mg/Ml Inj 1 Ml) 0.5 mg IVP Q4H PRN PRN Reason: ANXIETY Last Admin: 09/05/20 10:19 Dose: 0.5 mg Documented by: Losartan Potassium (Losartan 50 Mg Tablet) 25 mg PO DAILY [facility] Last Admin: 09/06/20 08:45 Dose: 25 mg Documented by: Nystatin (Nystatin Cream 30 Gm) 1 applic TOPICAL BID [facility] Last Admin: 09/06/20 09:10 Dose: 1 applic Documented by: Polyethylene Glycol (Polyethylene Glycol 3350 Pkt 17 Gm) 17 gm PO BID [facility] Last Admin: 09/06/20 08:45 Dose: 17 gm Documented by: Prednisone (Prednisone 20 Mg Tablet) 40 mg PO DAILY [facility] Last Admin: 09/06/20 08:44 Dose: 40 mg Documented by: Tamsulosin HCl (Tamsulosin 0.4 Mg Capsule) 0.4 mg PO DAILY [facility] Last Admin: 09/06/20 08:44 Dose: 0.4 mg Documented by: Vitals/I&O/Wt Last Vital Signs Temp 97.5 F L 09/06/20 07:40 Pulse 74 09/06/20 08:54 Resp 18 09/06/20 08:49 BP 157/83 09/06/20 08:45 Pulse Ox 96 09/06/20 08:49 09/05/20 09/06/20 09/06/20 22:59 06:59 14:59 Intake Total 1530 / 1770 Balance 1530 / 370 Weight last 48 hrs Weight 196 lb Weight 195 lb 1.6 oz Physical Exam Narrative: EXAM NARRATIVE: GENERAL: The patient is alert and oriented times three. Not in any acute distress. Heart rate is in the low 100s HEENT: No significant pallor, icterus or lymphadenopathy.Oral cavity: There are no mucous membrane lesions. NECK: Trachea appears to be central. No masses noted. No JVD or thyromegaly appreciated. RESPIRATORY: Chest is symmetrical. No intercostals muscle retraction or any accessory muscle activation. There is no chest wall tenderness. Breath sounds are heard bilaterally. No rales or rhonchi heard. No evidence of any consolidation. BREASTS: Deferred. HEART: The heart sounds are normal. No S3 or S4. Short systolic murmur the left sternal border. No diastolic murmurs. No pericardial rub ABDOMEN: No vessel pulsations or distention. No tenderness. No organomegaly appreciated. Bowel sounds are normally heard. : Deferred. RECTAL: Deferred. LYMPHATIC: No lymphadenopathy noted in the neck or groin. EXTREMITIES: No edema or cyanosis. No clubbing. Peripheral pulses are palpated in fairly good volume and amplitude MUSCULOSKELETAL: No acute joint deformities or swelling SKIN: There are no significant rashes or ecchymosis NEUROPSYCHIATRIC: The patient is alert and oriented x3. Appears to be in a good mood. No tremors or rigidity noted. Data : 09/06/20 04:45 09/06/20 04:45 Other Labs: Laboratory Last Values WBC 9.1 10^3/uL (4.0-10.0) 09/06/20 04:45 RBC 3.54 10^6/uL (4.1-5.3) L 09/06/20 04:45 Hgb 11.8 g/dL (11.7-16.6) 09/06/20 04:45 Hct 35.6 % (42.0-52.0) L 09/06/20 04:45 MCV 100.6 fL (80-94) H 09/06/20 04:45 MCH 33.3 pg (28.0-34.0) 09/06/20 04:45 MCHC 33.1 g/dL (30.0-36.0) 09/06/20 04:45 RDW 12.7 % (12.1-15.1) 09/06/20 04:45 Plt Count 184 10^3/cmm (130-400) 09/06/20 04:45 MPV 10.7 fL (7.4-10.4) H 09/06/20 04:45 Neut % (Auto) 73.9 % 09/06/20 04:45 Lymph % (Auto) 16.2 % 09/06/20 04:45 [place] % (Auto) 9.3 % 09/06/20 04:45 Eos % (Auto) 0.2 % 09/06/20 04:45 Baso % (Auto) 0.2 % 09/06/20 04:45 Neut # (Auto) 6.68 10^3/uL (1.8-7.7) 09/06/20 04:45 Lymph # (Auto) 1.5 10^3/uL (0.8-4.8) 09/06/20 04:45 [place] # (Auto) 0.8 10^3/uL (0.2-0.9) 09/06/20 04:45 Eos # (Auto) 0.0 10^3/uL (0.0-0.8) 09/06/20 04:45 Baso # (Auto) 0.0 10^3/uL (0.0-0.1) 09/06/20 04:45 Nucleated RBC % (auto) 0 % 09/06/20 04:45 Nucleated RBCs # 0.0 /100WBC 09/06/20 04:45 PT 14.10 SECONDS (12.1-14.9) 09/04/20 00:48 INR 1.06 (0.8-1.2) 09/04/20 00:48 D-Dimer 0.54 ug/mIFEU (0-0.59) 09/04/20 00:48 Specimen Type Arterial 09/04/20 00:50 Sample Site Radial, right 09/04/20 00:50 ABG pH 7.35 (7.35-7.45) 09/04/20 00:50 ABG pCO2 41.3 mmHg (35-45) 09/04/20 00:50 ABG pO2 71.1 mmHg (80.0-100.0) L 09/04/20 00:50 ABG HCO3 22.8 mmol/L (22-26) 09/04/20 00:50 ABG Base Excess -2.8 mmol/L (-2.0-2.0) L 09/04/20 00:50 Viraj Test Pos 09/04/20 00:50 Hematocrit 41.7 % (42-52) L 09/04/20 00:50 Hgb O2 Saturation 91.8 % (95-100) L 09/04/20 00:50 Carboxyhemoglobin 1.9 %THgb (0.4-20.1) 09/04/20 00:50 Methemoglobin 0.9 % (0.4-1.5) 09/04/20 00:50 Total Hemoglobin 13.6 g/dL (14-18) L 09/04/20 00:50 O2 Delivery Device Nc 09/04/20 00:50 O2 Liters/Min 2.0 % 09/04/20 00:50 Armature Tester ID ellpe 09/04/20 00:50 Sodium 134 mmol/L (136-145) L 09/06/20 04:45 Potassium 3.5 mmol/L (3.5-5.1) 09/06/20 04:45 Chloride 97 mmol/L (98-107) L 09/06/20 04:45 Carbon Dioxide 30 mmol/L (22-29) H 09/06/20 04:45 Anion Gap 10.5 (5-19) 09/06/20 04:45 BUN 11 mg/dL (8-23) 09/06/20 04:45 Creatinine 0.6 mg/dL (0.7-1.2) L 09/06/20 04:45 GFR Calculation Not Reportable 09/06/20 04:45 Glucose 101 mg/dL (65-115) 09/06/20 04:45 POC Glucose 166 mg/dL (70-110) H 09/06/20 06:46 Calculated Osmolality 278 mOsm/kg (285-295) L 09/06/20 04:45 Calcium 8.6 mg/dL (8.5-10.5) 09/06/20 04:45 Total Bilirubin 0.5 mg/dL (0.15-1.2) 09/06/20 04:45 AST 16 U/L (0-40) 09/06/20 04:45 ALT 12 U/L (0-41) 09/06/20 04:45 Alkaline Phosphatase 57 IU/L (40-130) 09/06/20 04:45 Troponin T Baseline 112 ng/L (0-15) H* 09/04/20 00:48 Troponin T 120 Minute 131.1 ng/L (0-15) H 09/04/20 02:25 Delta Troponin T 19.1 ABS# (0-10) H* 09/04/20 02:25 Troponin T Hi Sens 6Hr 261.3 ng/L (0-15) H 09/04/20 07:23 Troponin T Hi Sens 6Hr Delta 149.3 ng/L (0-12) H* 09/04/20 07:23 NT-Pro-B Natriuret Pep 4506 pg/mL (0-125) H 09/04/20 00:48 Total Protein 5.9 g/dL (6.6-8.7) L 09/06/20 04:45 Albumin 3.6 g/dL (3.5-5.2) 09/06/20 04:45 Globulin 2.3 g/dL (1.3-4.6) 09/06/20 04:45 Procalcitonin 0.04 ng/mL (0-0.5) 09/04/20 00:48 SARS-CoV-2 Ag (Rapid) Negative (Negative) 09/04/20 01:33 A&P Assessment and plan (1) Acute non-ST elevation myocardial infarction (NSTEMI): Patient underwent left heart catheterization with a left and right coronary angiogram today. He was found to have patent stent in the left and descending artery. Right coronary artery was found to have moderate diffuse disease in the proximal segment. The distal LAD he was found to have around 50 to 60% lesion. FFR of the RCA was within normal limits. The LV ejection fraction was around 25%. LVEDP was 30 mmHg. Based on these findings, it was decided to treat him medically. Status: Acute (2) Acute on chronic diastolic (congestive) heart failure: Patient may be carefully treated with IV diuretics and other symptomatic measures. I may given IV Lasix 40 mg now. Possible p.o. Lasix from tomorrow onwards Status: Acute (3) Dyslipidemia (high LDL; low HDL): May continue on the current statin. Status: Acute (4) Essential hypertension: The blood pressure is a stage II. We will continue to optimize the antihypertensive medications. Status: Acute Additional A&P Information Based on the patient's the clinical progress and the results of the above, further management decisions will be made. 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
--- NOTE | 2020-09-06 11:17 | PC.NURSE ---
Addendum entered by Sonali Holden RN 09/06/20 11:22: verbal instructions from Dr. Suresh arellano Original Note: verbal instructions from Dr Arellano to feed patient a light breakfast then continue NPO
--- NOTE | 2020-09-06 11:20 | PC.NURSE ---
call to Dr leyva at this time with patient reports of heart burn instructions to start protonix 40 mg PO daily starting now
[2020-09-06 11:28] LABS: Glucose Point of Care 232 mg/dL (70-110)
[2020-09-06] MEDS: pantoprazole DR 40 mg Tablet PO (11:42)
--- NOTE | 2020-09-06 11:53 | PC.NURSE ---
called Dr. leyva to confirm if he wanted patient to have insulin at this time for treatment of BG of 232 8 units via protocol instructions given to give 6 units and monitor patient
--- NOTE | 2020-09-06 17:00 | XACV_ITS ---
Exam Room: [facility] Ht: 173 cm Wt: 89 kg BSA: 2.09 m2 Gender: Male : 1950 Exam Priority: Routine Procedure(s): Procedure Description: Diagnostic procedure Procedure Description: Left Heart Catheterization Procedure Description: Left ventriculography Procedure Description: Coronary Angiography Procedure Description: Pressure Wire Diagnostic Cath Status: Urgent Diagnostic Findings * Coronary angiography shows right dominance. * The left main is a medium caliber vessel with mild diffuse intimal irregularities. Distal left main was found to have around 20% narrowing. * The left anterior descending artery is a medium caliber vessel, found to have long stented area involving the proximal and mid segment of the artery. The stent was found to be patent. Mild diffuse in-stent narrowing was noted in this area. The distal LAD was found to have an area of tubular narrowing of 50 to 60%. No other significant stenotic lesions were noted. * The left circumflex artery is a medium caliber nondominant vessel which was found to have around 40% ostial narrowing. The first obtuse marginal branch was found to have around 40% ostial narrowing. No other significant stenotic lesions were noted. * The intermedius artery, high obtuse marginal branch was found to have no significant stenotic lesions. Minimal intimal irregularities are noted throughout the artery. * The right coronary artery is a medium caliber dominant vessel which was found to have 50 to 60% irregular narrowing in the proximal segment. The PLV and the PDA branches were found to have minimal intimal irregularities. No significant stenotic lesions were noted. Interventional Findings * FFR PROCEDURE DETAIL:We engaged RCA with a JR 4 guide catheter. IV heparin was used to maintain an ACT above 250 seconds. After zeroing and equalization, FFR wire was used to cross the proximal RCA stenosis. IV adenosine was administered. FFR value of 0.87 was obtained that was non-ischemic. At this time final angiogram was performed that showed excellent stent expansion, no residual stenosis and TAMIKO-3 flow. Guidewire and guide catheter were removed. Hemostasis was obtained with TR band. Patient left the Metal Burrer in a stable condition. * INDICATION: NSTEMI/ Moderate disease of proximal RCA. Conclusions 1. 70-year-old white male with history of coronary artery disease, status post PCI, presented with features of acute on chronic heart failure and non-ST relation myocardial infarction. His echocardiogram revealed multiple wall motion of normalities with a diminished ejection fraction of around 36%. In view of the patient's history, clinical presentation and the abnormal objective findings, in order to further evaluate his coronary status, cardiac catheterization was recommended. Patient underwent left heart catheterization with left and right coronary angiogram and LV angiogram today. The findings are as follows. 2. Patent stented segments of the left anterior descending artery. Moderate coronary disease in the distal LAD and proximal right coronary artery. Mild diffuse disease in the other vessels. Diminished LV ejection fraction around 25%. LVEDP of 30 mmHg. 3. The cardiac catheterization data was discussed and reviewed with Dr. Cuevas. The study appropriate to consider FFR of the proximal RCA lesion. Dr. Cuevas took over further management of this patient at this point.For further details of the FFR, please refer to the separate report. 4. FFR of RCA demonstrated no ischemia with a value of 0.87. Recommendations * Guideline directed medical therapy for heart failure. * Aggressive risk factor control. * EDP is elevated, patient will need further diuresis. * Outpatient followup with cardiology office. Interventional RX Recommendation: medical therapy and/or counseling Diagnostic RX Recommendation: other cardiac therapy w/o CABG/PCI Anticoagulation: Heparin Ventriculography Ejection Fraction: 25.0 % LV EDP: 30 mmHg Left Ventriculography Findings: * LV gram was performed in the QUEZADA projection. The LV cavity appears to be dilated. Severe diffuse hypokinesia of the left ventricle was noted. No significant filling defects were noted. The LV gram was a suboptimal quality. No significant mitral valve prolapse or mitral regurgitation were noted. Pressures Phase:Rest AO : 134 / 73 ( 95 ) @ 11:26:00 AM 112 / 67 ( 86 ) @ 11:29:00 AM 140 / 68 ( 96 ) @ 11:37:00 AM 139 / 69 ( 96 ) @ 11:37:00 AM LV : 132 / 9 / @ 11:35:00 AM 138 / 8 / @ 11:36:00 AM 138 / 10 / @ 11:37:00 AM 137 / 10 / @ 11:37:00 AM Valves Phase:DefaultPhase AV : 0.0 @ 5:59:05 PM AV Mean Gradient: 0.0 @ 5:59:05 PM Clinical Evaluation EBL: 5mL-10mL Procedural Details Procedure Consent Obtained. Pre-Procedure Time Out. Identified patient by full name and date of as verbalized by the patient/guarantor. Does the consent match the physician's order: Yes. Accurate & Complete Informed Consent: Yes. Inpatient/Outpatient History & Physical on Chart: Yes. If H&P is completed, is and addenduem needed: No; If yes, is the addendum complete: N/A. Visualize and Verify Site with Patient/Guarantor: N/A. Relevant Radiology Images available: N/A. Pre-op teaching completed and patient verbalized understanding. The risks, benefits, and alternatives of sedation and/or procedure were discussed by physician. The patient agrees to continue. Procedure started. [facility] Clinical Fraility Score: 4: Vulnerable. Metal Burrer Indications: ACS > 24 hours. Chest Pain Symptom Assessment: Atypical Angina. Cardiovascular Instability: No, if yes, Persistant Ischemic Symptoms. Correct patient, site and procedure confirmed by cath team. PERRLA. Strong, equal hand hot die picker bilaterally. Lungs clear x 5 lobes. IV Site on Arrival: 20 gauge in the right anticubital. IV Fluids: 0.9% NaCl at KVO. 0 mL infused prior to warehouse laborer. Pre Procedural Pulses: bilateral radial was 3+. Oxygen started at 2liters/min via nasal canula. Physician notified. Baseline sample Acquired. HR: 98 BPM. bilateral groins was prepped with chloroprep then draped in the usual sterile fashion. right radial was prepped with chloroprep then draped in the usual sterile fashion. Equipment: 6F - Radial. Cardiac Cath Pack. ACIST Manifold Kit Model BT 2000. Heparinized Saline (2 units/mL), 1000 mL bag. Physician arrived. Physician scrubbed in. Immediate Pre-Procedure Time Out. Correct Patient: Yes; Correct Procedure: Yes; Correct Site: Yes; Correct Patient Position: Yes; Correct Supplies: Yes; Dried Flammable Prep: Yes; Blood Products Available: N/A;. Lidocaine 1% infiltrated to the right radial. Arterial access obtained. A [employer] 5 Fr Toby Radial Catheter, 110cm was advanced over the wire and used for Left coronary angiography. Multiple views taken of left coronary artery. Catheter redirected to the RCA. Multiple views taken of right coronary artery. Catheter removed over the exchange wire. Dr Cuevas present for procedure. Dr Cuevas reviewed images and discussed case with Dr Prince. A 5 sinhala Angled Pig catheter in over wire. EDP Sample taken: LV 132/9,24; HR: 98 BPM; SpO2: 92%. EDP Sample taken: LV 138/8,30; HR: 98 BPM; SpO2: 91%. LV gram performed in QUEZADA @ 10 mL/second for a total of 30 mL. EDP Sample taken: LV 138/10,29; HR: 96 BPM; SpO2: 92%. Pullback taken: LV 137/10,29; AO 140/68(96); Mean: 0mmHg, Peak to Peak: 0mmHg, SEP: 26sec/min; HR: 96 BPM; SpO2: 92%. Catheter removed over the exchange wire. Dr. Cuevas scrubbed in to perform intervention. Inventory is CRD 6FR JR 4 GUIDE 100cm. 6 sinhala JR 4 guide catheter was inserted over the wire. FFR guidewire was advanced through the guide catheter to lesion in the prox RCA. An FFR value of 0.87 was obtained for a lesion located at Prox RCA. Wire out. Fractional flow reserve measurements obtained. Guide catheter out. Physician scrubbed out. A TR Band was successful obtaining hemostatsis at the Right Radial artery insertion site. TR band placed. Hemostasis obtained. Post Procedure: Pulses reassessed and unchanged. PERRLA. Strong, equal hand hot die picker bilaterally. No VTE prophylaxis required. Medication's Wasted: Lidocaine 1% = 18 mL. Medication's Wasted: Nitro = 49.6 mg. Medication's Wasted: Heparin = 4000 units. Medication's Wasted: Other = versed 1 mg. Medication's Wasted: Other = fentanyl 50 mcg. Total IV fluids: 75 mL. Medication's Wasted: Other = adenosine 65 mL. Contrast type used: Omnipaque 300 mgI/mL, 500 mL bottle. Post-op diagnosis: moderate RCA disease. Complications: none. Estimated blood loss: 5mL-10mL. Procedure completed. Patient transferred by wheelchair to 1st floor. Vital chart was stopped. Access Site Site: Right Radial artery Sheath Size: 6 Fr Hemostasis Method: TR Band Hemostasis Success: Successful Procedure Medications Start: 5:17 PM Stop: 5:17 PM Medication: Versed Amount: 1 mg Route: I.V. Start: 5:17 PM Stop: 5:17 PM Medication: Fentanyl Amount: 50 mcg Route: I.V. Start: 5:19 PM Stop: 5:19 PM Medication: Versed Amount: 1 mg Route: I.V. Start: 5:21 PM Stop: 5:21 PM Medication: Fentanyl Amount: 50 mcg Route: I.V. Start: 5:24 PM Stop: 5:24 PM Medication: Verapamil Amount: 5 mg Route: I.A. Start: 5:24 PM Stop: 5:24 PM Medication: Nitrogylcerin Amount: 200 mcg Route: I.A. Start: 5:26 PM Stop: 5:26 PM Medication: Versed Amount: 1 mg Route: I.V. Start: 5:27 PM Stop: 5:27 PM Medication: Heparin Amount: 5000 units Route: I.V. Start: 5:30 PM Stop: 5:30 PM Medication: Versed Amount: 1 mg Route: I.V. Start: 5:41 PM Stop: 5:41 PM Medication: Nitrogylcerin Amount: 200 mcg Route: I.A. Start: 5:30 PM Stop: 5:30 PM Medication: Fentanyl Amount: 50 mcg Route: I.V. Start: 5:47 PM Stop: 5:47 PM Medication: Heparin Amount: 2000 units Route: I.V. Start: 5:48 PM Stop: 5:48 PM Medication: Versed Amount: 1 mg Route: I.V. I, the attending physician, have reviewed and verified all procedure medications. Yes, all medications given per verbal order History/Risk Factors Hypertension: Yes Dyslipidemia: Yes Peripheral Arterial Disease (PAD): No Myocardial Infarction (DE): Yes Obesity: No Renal Disease: No Prior Interventions PCI: Yes CABG: No Valve Surgery: No Report Signatures Interventional Workflow Finalized by Earle Cuevas MD on 09/11/2020 11:03 AM Diagnostic Workflow Finalized by Dr Ambar Prince MD [facility] on 09/06/2020 07:44 PM
[2020-09-06 17:07] LABS: Glucose Point of Care 258 mg/dL (70-110)
--- NOTE | 2020-09-06 17:12 | W.PM.OPSUD ---
Surgery/Procedure H&P Update DATE OF PROCEDURE: September 06, 2020 DATE H&P PERFORMED: 09/04/20 H&P UPDATE INFORMATION: I have reviewed H&P completed within last 30 days, I have examined patient prior to procedure and No changes to prior documentation PREOP DIAGNOSIS: Non-ST relation myocardial infarction/congestive heart failure PLANNED PROCEDURE: Operation Date: 09/06/20 17:10 Proposed Procedures p left Cardiac Catheterization 10887 I21.4(Left) - Ambar Prince MD PATIENT REASSESSED PRIOR TO SEDATION, WITH NO CHANGE NOTED: Yes PHYSICAL EXAM: alert, oriented x 3, clear to auscultation bilaterally and regular rate & rhythm AIRWAY EVAL/ANESTHESIA PLAN: normal airway, see other exam findings, ASA III, Monitored Anesthesia, Local Anesthesia, Risks, benefits & alternatives of sedation and/or procedure discussed and Patient agrees to continue as planned
--- NOTE | 2020-09-06 18:33 | PC.NURSE ---
patient received from construction laborer TR band in place no hematoma noted patient alert and oriented call from Dr. Prince with instructions to give 40 mg IVP lasix now x1
[2020-09-06] MEDS: FUROsemide 10 mg/mL SDV 4mL 40 MG IVP (19:41)
[2020-09-06 20:00] LABS: Glucose Point of Care 328 mg/dL (70-110)
--- NOTE | 2020-09-06 22:06 | PM.PN ---
Subjective Subjective: Interval history: Today he is doing better. Denies chest pain. Breathing continues to improve. Weaned down to room air. Intermittent cough. Vitals/I&O/Wt Last Vital Signs Temp 98 F 09/06/20 19:52 Pulse 78 09/06/20 20:26 Resp 17 09/06/20 20:26 BP 133/69 09/06/20 19:52 Pulse Ox 98 09/06/20 20:26 09/06/20 09/06/20 09/06/20 06:59 14:59 22:59 Output Total 250 / 250 Balance -250 / -250 Weight last 48 hrs Weight 88.904 kg Weight 88.496 kg Physical Exam Const: COMMON NORMALS: no acute distress and patient oriented x3 HENMT: COMMON NORMALS: oropharynx normal OTHER: Resolved possible pressure injury on the nose Neck/C-Spine: COMMON NORMALS: no JVD Resp: COMMON NORMALS: normal respiratory effort and clear to auscultation bilaterally AUSCULTATION: clear to auscultation bilaterally Cardio: COMMON NORMALS: no JVD, regular rhythm, S1 normal heart sound present, S2 normal heart sound present and No murmurs present (Cardio) RHYTHM: regular rhythm HEART SOUNDS: S1 normal heart sound present and S2 normal heart sound present GI: COMMON NORMALS: Normal to inspection, nondistended, normoactive bowel sounds present, Soft to palpation and non-tender PALPATION: Yes Soft to palpation Extremity: COMMON NORMALS: no joint enlargement GENERAL: No edema Neuro: COMMON NORMALS: patient oriented x3 and moves all extremities Skin: COMMON NORMALS: no rashes or lesions noted GENERAL SKIN EXAM: no rashes or lesions noted Data : 09/06/20 04:45 09/06/20 04:45 A&P Assessment and plan (1) Acute respiratory failure with hypoxia: Improving. Doing well. Weaned down to room air. Subjectively feeling much better. Occasional cough. Sounds better on exam. We will taper down prednisone. Continue Levaquin PO. Lasix. Repeat chest x-ray with cardiomegaly, small left pleural effusion. D-dimer not elevated. Status: Acute (2) Non-ST elevation MT (NSTEMI): Discussed with cardiology. Noted coronary disease, but not significant enough for stenting. Continue medical therapy. Status: Acute (3) CHF exacerbation: Continue Lasix. DC IV fluid. Oral antibiotic. EF noted 36%, grade 1 diastolic dysfunction, thickened aortic and mitral valves, mild MR. Additional assessment by coronary angiography as above. Continue treatment for non-STEMI, pneumonia. Status: Acute (4) Pneumonia: Community-acquired pneumonia, appears in left lower lobe. Appears to be improved with repeat x-ray with only small left pleural effusion. Urine bacterial antigens negative. Follow-up blood cultures. Status: Acute (5) Sepsis: Now resolved. If continues to improve, leukocytosis resolving, consider de-escalating antibiotic. Follow-up cultures. Status: Acute Additional A&P Information Coronary artery disease: History of stent placement. Type 2 diabetes: Oral medications on hold. SSI. History of hypertension: Continue lisinopril BPH: Continue tamsulosin Possible pressure injury on the bridge of the nose: Resolved Cardiac/consistent carb diet DVT prophylaxis -SCD Full code Attestations Medical Necessity Statement*: Admission for assessment management of NSTEMI, optimization of medical management of advancing CAD, optimization of CHF exacerbation, preparation for discharge. 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
[2020-09-07] VITALS (27 sets, daily range): BP systolic 100–185; BP diastolic 52–92; PULSE 61–101; RESP 13–29; TEMP 36.3–36.8; O2SAT 90–98
[2020-09-07 04:56] LABS: Basophils % 0.1 %; Eosinophils % 0.2 %; Hematocrit 34.8 % (42.0-52.0); Hemoglobin 11.8 g/dL (11.7-16.6); Lymphocytes # 1.2 10^3/uL (0.8-4.8); Lymphocytes % 14.5 %; Mean Corpuscular HGB Conc 33.9 g/dL (30.0-36.0); Mean Corpuscular Hemoglobin 33.1 pg (28.0-34.0); Mean Corpuscular Volume 97.8 fL (80-94); Mean Platelet Volume 10.6 fL (7.4-10.4); Monocytes # 0.9 10^3/uL (0.2-0.9); Monocytes % 10.6 %; Neutrophils # 6.14 10^3/uL (1.8-7.7); Neutrophils % 74.4 %; Nucleated Red Blood Cells % 0 %; Platelet Count 201 10^3/cmm (130-400); Red Blood Count 3.56 10^6/uL (4.1-5.3); Red Cell Distribution Width 12.5 % (12.1-15.1); White Blood Count 8.3 10^3/uL (4.0-10.0)
[2020-09-07 05:17] LABS: Alanine Aminotransferase 14 U/L (0-41); Albumin Level 3.3 g/dL (3.5-5.2); Alkaline Phosphatase 58 IU/L (40-130); Anion Gap 11.4 (5-19); Aspartate Amino Transferase 13 U/L (0-40); Blood Urea Nitrogen 8 mg/dL (8-23); Carbon Dioxide 29 mmol/L (22-29); Chloride 96 mmol/L (98-107); Globulin 2.3 g/dL (1.3-4.6); Glucose 183 mg/dL (65-115); Osmolality Calculated 279 mOsm/kg (285-295); Potassium 3.4 mmol/L (3.5-5.1); Sodium 133 mmol/L (136-145); Total Bilirubin 0.6 mg/dL (0.15-1.2); Total Protein 5.6 g/dL (6.6-8.7)
[2020-09-07] MEDS: levoFLOXacin 750 mg Tablet PO (05:59)
[2020-09-07 06:49] LABS: Glucose Point of Care 174 mg/dL (70-110)
[2020-09-07] MEDS: aspirin 81 mg EC Tablet PO (09:38)
[2020-09-07] MEDS: atorvastatin 40 mg Tablet 80 MG PO (09:38)
[2020-09-07] MEDS: losartan 50 mg Tablet 25 MG PO (09:39)
[2020-09-07] MEDS: atenolol 50 mg Tablet 100 MG PO (09:39)
[2020-09-07] MEDS: clopidogrel 75 mg Tablet PO (09:39)
[2020-09-07] MEDS: predniSONE 20 mg Tablet PO (09:39)
[2020-09-07] MEDS: tamsulosin 0.4 mg Capsule PO (09:40)
[2020-09-07] MEDS: FUROsemide 40 mg Tablet PO (09:40)
[2020-09-07] MEDS: glimepiride 2 mg Tablet 4 MG PO (09:41)
[2020-09-07] MEDS: nystatin cream 30 gm 1 APPLIC TOPICAL (09:43)
--- NOTE | 2020-09-07 09:54 | PM.PN ---
Subjective Subjective: Interval history: The patient is feeling better. His shortness of breath is significantly improved. Denies any chest pain or palpitations. No syncopal episodes. No other specific complaints. His cardiac radiation revealed patent stents in the LAD. He had a mild to moderate diffuse disease in the other vessels. LV ejection fraction was around 25%. LVEDP was 30 mmHg. Medications: Reviewed: Yes Medication Review Details: Current Medications Acetaminophen (Acetaminophen 325 Mg Tablet) 650 mg PO Q6H PRN PRN Reason: MILD PAIN Al Hydrox/Mg Hydrox/Simethicone (Rzhc-Yko-Gxrrvmmhr-Festus 30 Ml Udc) 30 ml PO Q15M PRN PRN Reason: INDIGESTION Albuterol/Ipratropium (Ipratropium-Albuterol 3 Ml Neb) 3 ml INHALATION Q6H PRN PRN Reason: SHORTNESS OF BREATH Last Admin: 09/06/20 20:26 Dose: 3 ml Documented by: Alprazolam (Alprazolam 0.25 Mg Tablet) 0.25 mg PO TID PRN PRN Reason: ANXIETY Aspirin (Aspirin 81 Mg Ec Tablet) 81 mg PO DAILY [facility] Last Admin: 09/07/20 09:38 Dose: 81 mg Documented by: Atenolol (Atenolol 50 Mg Tablet) 100 mg PO DAILY [facility] Last Admin: 09/07/20 09:39 Dose: 100 mg Documented by: Atorvastatin Calcium (Atorvastatin 40 Mg Tablet) 80 mg PO DAILY [facility] Last Admin: 09/07/20 09:38 Dose: 80 mg Documented by: Atropine Sulfate (Atropine 1 Mg/Ml Sdv 1 Ml) 0.5 mg IVP PRN PRN PRN Reason: Symptomatic bradycardia Clopidogrel Bisulfate (Clopidogrel 75 Mg Tablet) 75 mg PO DAILY [facility] Last Admin: 09/07/20 09:39 Dose: 75 mg Documented by: Dextrose (Dextrose 50% Syringe 50 Ml) 50 ml IVP PRN PRN; Protocol PRN Reason: hypoglycemia protocol Fentanyl (Fentanyl 50 Mcg/Ml Inj 2ml) 50 mcg IVP PRN PRN PRN Reason: Prior to sheath removal Furosemide (Furosemide 40 Mg Tablet) 40 mg PO DAILY [facility] Last Admin: 09/07/20 09:40 Dose: 40 mg Documented by: Glimepiride (Glimepiride 2 Mg Tablet) 4 mg PO DAILY [facility] Last Admin: 09/07/20 09:41 Dose: 4 mg Documented by: Glucagon (Glucagon 1 Mg/Ml Inj 1 Ml) 1 mg IM ONCE PRN; Protocol PRN Reason: Adult Acute Hypoglycemia Prot. Insulin Aspart (Insulin Aspart 100 Unit/1 Ml) 0 unit SUBCUT WM&BEDTIME [facility]; Protocol Last Admin: 09/07/20 08:16 Dose: 4 unit Documented by: Levofloxacin (Levofloxacin 750 Mg Tablet) 750 mg PO DAILY@0600 [facility]; Protocol Last Admin: 09/07/20 05:59 Dose: 750 mg Documented by: Lorazepam (Lorazepam 2 Mg/Ml Inj 1 Ml) 0.5 mg IVP Q4H PRN PRN Reason: ANXIETY Last Admin: 09/05/20 10:19 Dose: 0.5 mg Documented by: Losartan Potassium (Losartan 50 Mg Tablet) 25 mg PO DAILY [facility] Last Admin: 09/07/20 09:39 Dose: 25 mg Documented by: Magnesium Hydroxide (Magnesium Hydroxide 30 Ml Udc) 30 ml PO DAILY PRN PRN Reason: CONSTIPATION Magnesium Hydroxide (Magnesium Hydroxide 30 Ml Udc) 30 ml PO DAILY PRN PRN Reason: CONSTIPATION Naloxone HCl (Naloxone 0.4 Mg/Ml Sdv) 0.1 mg IVP Q2M PRN PRN Reason: RESPIRATORY RATE < 8/MIN Naloxone HCl (Naloxone 0.4 Mg/Ml Sdv) 0.1 mg IVP Q2M PRN PRN Reason: RESPIRATORY RATE < 8/MIN Nitroglycerin (Nitroglycerin 0.4 Mg Sublingual Tablet) 0.4 mg SUBLINGUAL Q5M PRN PRN Reason: CHEST PAIN Nitroglycerin (Nitroglycerin 0.4 Mg Sublingual Tablet) 0.4 mg SUBLINGUAL Q5M PRN PRN Reason: CHEST PAIN Nystatin (Nystatin Cream 30 Gm) 1 applic TOPICAL BID [facility] Last Admin: 09/07/20 09:43 Dose: 1 applic Documented by: Pantoprazole Sodium (Pantoprazole Dr 40 Mg Tablet) 40 mg PO DAILY [facility] Last Admin: 09/06/20 11:42 Dose: 40 mg Documented by: Polyethylene Glycol (Polyethylene Glycol 3350 Pkt 17 Gm) 17 gm PO BID [facility] Last Admin: 09/07/20 09:43 Dose: Not Given Documented by: Prednisone (Prednisone 20 Mg Tablet) 20 mg PO DAILY [facility] Last Admin: 09/07/20 09:39 Dose: 20 mg Documented by: Tamsulosin HCl (Tamsulosin 0.4 Mg Capsule) 0.4 mg PO DAILY TIM Last Admin: 09/07/20 09:40 Dose: 0.4 mg Documented by: Temazepam (Temazepam 15 Mg Capsule) 15 mg PO BEDTIME PRN PRN Reason: INSOMNIA Vitals/I&O/Wt Last Vital Signs Temp 98.3 F 09/07/20 07:29 Pulse 76 09/07/20 07:29 Resp 16 09/07/20 07:29 BP 158/82 09/07/20 09:39 Pulse Ox 97 09/07/20 07:29 09/06/20 09/07/20 09/07/20 22:59 06:59 14:59 Intake Total 1000 / 1000 Output Total 1225 / 1475 550 / 5 150 / 150 Balance -225 / -475 -550 / -1025 -150 / -150 Weight last 48 hrs Weight 194 lb Weight 196 lb Physical Exam Narrative: EXAM NARRATIVE: GENERAL: The patient is alert and oriented times three. Not in any acute distress. HEENT: No significant pallor, icterus or lymphadenopathy.Oral cavity: There are no mucous membrane lesions. NECK: Trachea appears to be central. No masses noted. No JVD or thyromegaly appreciated. RESPIRATORY: Chest is symmetrical. No intercostals muscle retraction or any accessory muscle activation. There is no chest wall tenderness. Breath sounds are heard bilaterally. No rales or rhonchi heard. No evidence of any consolidation. BREASTS: Deferred. HEART: The heart sounds are normal. No S3 or S4. Short systolic murmur the left sternal border. No diastolic murmurs. No pericardial rub ABDOMEN: No vessel pulsations or distention. No tenderness. No organomegaly appreciated. Bowel sounds are normally heard. : Deferred. RECTAL: Deferred. LYMPHATIC: No lymphadenopathy noted in the neck or groin. EXTREMITIES: No edema or cyanosis. No clubbing. The radial arterial puncture site has no hematoma or bleeding. MUSCULOSKELETAL: No acute joint deformities or swelling SKIN: There are no significant rashes or ecchymosis NEUROPSYCHIATRIC: The patient is alert and oriented x3. Appears to be in a good mood. No tremors or rigidity noted. Data : 09/07/20 04:20 09/07/20 04:20 Other Labs: Laboratory Last Values WBC 8.3 10^3/uL (4.0-10.0) 09/07/20 04:20 RBC 3.56 10^6/uL (4.1-5.3) L 09/07/20 04:20 Hgb 11.8 g/dL (11.7-16.6) 09/07/20 04:20 Hct 34.8 % (42.0-52.0) L 09/07/20 04:20 MCV 97.8 fL (80-94) H 09/07/20 04:20 MCH 33.1 pg (28.0-34.0) 09/07/20 04:20 MCHC 33.9 g/dL (30.0-36.0) 09/07/20 04:20 RDW 12.5 % (12.1-15.1) 09/07/20 04:20 Plt Count 201 10^3/cmm (130-400) 09/07/20 04:20 MPV 10.6 fL (7.4-10.4) H 09/07/20 04:20 Neut % (Auto) 74.4 % 09/07/20 04:20 Lymph % (Auto) 14.5 % 09/07/20 04:20 [place] % (Auto) 10.6 % 09/07/20 04:20 Eos % (Auto) 0.2 % 09/07/20 04:20 Baso % (Auto) 0.1 % 09/07/20 04:20 Neut # (Auto) 6.14 10^3/uL (1.8-7.7) 09/07/20 04:20 Lymph # (Auto) 1.2 10^3/uL (0.8-4.8) 09/07/20 04:20 [place] # (Auto) 0.9 10^3/uL (0.2-0.9) 09/07/20 04:20 Eos # (Auto) 0.0 10^3/uL (0.0-0.8) 09/07/20 04:20 Baso # (Auto) 0.0 10^3/uL (0.0-0.1) 09/07/20 04:20 Nucleated RBC % (auto) 0 % 09/07/20 04:20 Nucleated RBCs # 0.0 /100WBC 09/07/20 04:20 PT 14.10 SECONDS (12.1-14.9) 09/04/20 00:48 INR 1.06 (0.8-1.2) 09/04/20 00:48 D-Dimer 0.54 ug/mIFEU (0-0.59) 09/04/20 00:48 Specimen Type Arterial 09/04/20 00:50 Sample Site Radial, right 09/04/20 00:50 ABG pH 7.35 (7.35-7.45) 09/04/20 00:50 ABG pCO2 41.3 mmHg (35-45) 09/04/20 00:50 ABG pO2 71.1 mmHg (80.0-100.0) L 09/04/20 00:50 ABG HCO3 22.8 mmol/L (22-26) 09/04/20 00:50 ABG Base Excess -2.8 mmol/L (-2.0-2.0) L 09/04/20 00:50 Viraj Test Pos 09/04/20 00:50 Hematocrit 41.7 % (42-52) L 09/04/20 00:50 Hgb O2 Saturation 91.8 % (95-100) L 09/04/20 00:50 Carboxyhemoglobin 1.9 %THgb (0.4-20.1) 09/04/20 00:50 Methemoglobin 0.9 % (0.4-1.5) 09/04/20 00:50 Total Hemoglobin 13.6 g/dL (14-18) L 09/04/20 00:50 O2 Delivery Device Nc 09/04/20 00:50 O2 Liters/Min 2.0 % 09/04/20 00:50 Tier In ID ellpe 09/04/20 00:50 Sodium 133 mmol/L (136-145) L 09/07/20 04:20 Potassium 3.4 mmol/L (3.5-5.1) L 09/07/20 04:20 Chloride 96 mmol/L (98-107) L 09/07/20 04:20 Carbon Dioxide 29 mmol/L (22-29) 09/07/20 04:20 Anion Gap 11.4 (5-19) 09/07/20 04:20 BUN 8 mg/dL (8-23) 09/07/20 04:20 Creatinine 0.5 mg/dL (0.7-1.2) L 09/07/20 04:20 GFR Calculation Not Reportable 09/07/20 04:20 Glucose 183 mg/dL (65-115) H 09/07/20 04:20 POC Glucose 174 mg/dL (70-110) H 09/07/20 06:47 Calculated Osmolality 279 mOsm/kg (285-295) L 09/07/20 04:20 Calcium 8.0 mg/dL (8.5-10.5) L 09/07/20 04:20 Total Bilirubin 0.6 mg/dL (0.15-1.2) 09/07/20 04:20 AST 13 U/L (0-40) 09/07/20 04:20 ALT 14 U/L (0-41) 09/07/20 04:20 Alkaline Phosphatase 58 IU/L (40-130) 09/07/20 04:20 Troponin T Baseline 112 ng/L (0-15) H* 09/04/20 00:48 Troponin T 120 Minute 131.1 ng/L (0-15) H 09/04/20 02:25 Delta Troponin T 19.1 ABS# (0-10) H* 09/04/20 02:25 Troponin T Hi Sens 6Hr 261.3 ng/L (0-15) H 09/04/20 07:23 Troponin T Hi Sens 6Hr Delta 149.3 ng/L (0-12) H* 09/04/20 07:23 NT-Pro-B Natriuret Pep 4506 pg/mL (0-125) H 09/04/20 00:48 Total Protein 5.6 g/dL (6.6-8.7) L 09/07/20 04:20 Albumin 3.3 g/dL (3.5-5.2) L 09/07/20 04:20 Globulin 2.3 g/dL (1.3-4.6) 09/07/20 04:20 Procalcitonin 0.04 ng/mL (0-0.5) 09/04/20 00:48 SARS-CoV-2 Ag (Rapid) Negative (Negative) 09/04/20 01:33 A&P Assessment and plan (1) Acute non-ST elevation myocardial infarction (NSTEMI): Patient underwent left heart catheterization with a left and right coronary angiogram today. He was found to have patent stent in the left and descending artery. Right coronary artery was found to have moderate diffuse disease in the proximal segment. The distal LAD he was found to have around 50 to 60% lesion. FFR of the RCA was within normal limits. The LV ejection fraction was around 25%. LVEDP was 30 mmHg. Based on these findings, it was decided to treat him medically. Status: Acute (2) Dyslipidemia (high LDL; low HDL): May continue on the current statin. Status: Acute (3) Essential hypertension: Currently he is normotensive. We will continue on the current medications with the following changes. Status: Acute (4) Ischemic cardiomyopathy: In view of his severe LV colic dysfunction, he benefit from a LifeVest, while we are optimizing his medical treatment. We also will start him on Entresto tomorrow. The losartan may be discontinued at that time. Also start him on spironolactone 25 mg p.o. daily. Him on Lasix 40 mg p.o. daily. Status: Acute Additional A&P Information If the patient continues remain stable, he may be discharged home today. He will be seen in the [facility] in 1 week. I may see him in the office in 3 weeks. Spironolactone 25 mg p.o. daily. Entresto 1 tablet p.o. twice daily, starting tomorrow. LifeVest is requested. Discussed with Dr. Gray. 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
[2020-09-07] MEDS: pantoprazole DR 40 mg Tablet PO (10:15)
--- NOTE | 2020-09-07 11:10 | PM.DCS ---
Discharge Providers Date of Admission: 09/04/20 04:32 Date of Discharge: September 07, 2020 Attending Provider at Admission: Madeleine Bates MD Attending Provider at Discharge: Willy Peres Primary Care Provider: Kuldip Richter DO Diagnoses at Discharge Discharge Diagnosis (1) Acute non-ST elevation myocardial infarction (NSTEMI): Status: Acute (2) Acute on chronic diastolic (congestive) heart failure: Status: Acute (3) Dyslipidemia (high LDL; low HDL): Status: Acute (4) Essential hypertension: Status: Acute (5) Ischemic cardiomyopathy: Status: Acute Permanent problem details: Severe. Being set up for LifeVest. (6) Acute systolic (congestive) heart failure: Status: Acute (7) COPD exacerbation: Status: Acute Reason for Visit Reason for Visit: SOB Hospital Course Hospital Course 70-year-old gentleman with history of CAD, status post PCI in 2017, COPD, pacemaker, DM 2, ischemic cardiomyopathy was admitted after presenting with complaint of shortness of breath, nonproductive cough, orthopnea, PND. Required 2 L of oxygen on presentation. She was treated for left lower lobe pneumonia with ceftriaxone and azithromycin initially, also treated for acute CHF, subsequently antibiotics changed to p.o. Levaquin to reduce chances of fluid overload due to noted possible flash pulmonary edema with even minimal IV fluid infusions on presentation. With possible COPD exacerbation was also treated with prednisone course. Was diuresed with Lasix. At presentation noted also to have NSTEMI for which he was empirically treated, additionally assessed by cardiology due to NSTEMI, CHF, was assessed by TTE, with finding of EF around 36 %, grade 1 diastolic dysfunction, thickened aortic and mitral valves. Mild MVR. No pericardial effusion. Technically difficult study. Additionally underwent assessment by coronary geography with noted ejection fraction 25% on ventriculogram. LVEDP 30 mmHg. With noted distal LAD lesion around 55 to 60%. FFR of RCA within normal limits. Recommendation was to continue medical management per cardiology. Due to severely depressed ejection fraction LifeVest was discussed with him, he agreed to be set up, and this will be arranged for him at discharge by cardiology. Subjectively he is feeling much better compared to admission. His shortness of breath is resolved. He is weaned off oxygen. He has been getting up at the edge of bed, somewhat limited mobility, due to which we are setting him up with home health for additional strengthening, work on balance, fall prevention. Please continue to optimize risk factors for coronary disease. Continue to optimize hypertension, diabetes. He is asked to follow-up with cardiology in office. In addition to adjustment of cardiac medicines by cardiology, he will also complete a course of Levaquin at discharge, and short prednisone taper. Home O2 evaluation was completed prior to discharge and he does not qualify for oxygen. Physical Exam Const: COMMON NORMALS: no acute distress and patient oriented x3 HENMT: COMMON NORMALS: oropharynx normal OTHER: Resolved possible pressure injury on the nose Neck/C-Spine: COMMON NORMALS: no JVD Resp: COMMON NORMALS: normal respiratory effort and clear to auscultation bilaterally AUSCULTATION: clear to auscultation bilaterally Cardio: COMMON NORMALS: no JVD, regular rhythm, S1 normal heart sound present, S2 normal heart sound present and No murmurs present (Cardio) RHYTHM: regular rhythm HEART SOUNDS: S1 normal heart sound present and S2 normal heart sound present GI: COMMON NORMALS: Normal to inspection, nondistended, normoactive bowel sounds present, Soft to palpation and non-tender PALPATION: Yes Soft to palpation Extremity: COMMON NORMALS: no joint enlargement GENERAL: No edema Neuro: COMMON NORMALS: patient oriented x3 and moves all extremities Skin: COMMON NORMALS: no rashes or lesions noted GENERAL SKIN EXAM: no rashes or lesions noted Discharge Data Data Completed and Pending: Completed Studies During Hospitalization Category Date Time Status XR chest 1V valerie ble [id number] Routine Exams 09/04/20 03:30 Completed XR chest 1V valerie ble [id number] Routine Exams 09/05/20 10:03 Completed XR chest 1V valerie ble [id number] Urgent Exams 09/04/20 00:37 Completed CV echo complete* [id number] Routine Ultrasound 09/04/20 04:33 Completed Pending at discharge Category Date Time Status [employer] request for service Routin e Exams 09/06/20 17:00 Taken Blood Culture Sta t Lab 09/04/20 02:20 Results Labs from last 24 hours 09/07/20 09/07/20 09/07/20 06:47 04:20 04:20 WBC 8.3 RBC 3.56 L Hgb 11.8 Hct 34.8 L MCV 97.8 H MCH 33.1 MCHC 33.9 RDW 12.5 Plt Count 201 MPV 10.6 H Neut % (Auto) 74.4 Lymph % (Auto) 14.5 [place] % (Auto) 10.6 Eos % (Auto) 0.2 Baso % (Auto) 0.1 Neut # (Auto) 6.14 Lymph # (Auto) 1.2 [place] # (Auto) 0.9 Eos # (Auto) 0.0 Baso # (Auto) 0.0 Nucleated RBC % (a uto) 0 Nucleated RBCs # 0.0 Sodium 133 L Potassium 3.4 L Chloride 96 L Carbon Dioxide 29 Anion Gap 11.4 BUN 8 Creatinine 0.5 L GFR Calculation Not Reportable Glucose 183 H POC Glucose 174 H Calculated Osmolal ity 279 L Calcium 8.0 L Total Bilirubin 0.6 AST 13 ALT 14 Alkaline Phosphata se 58 Total Protein 5.6 L Albumin 3.3 L Globulin 2.3 09/06/20 09/06/20 09/06/20 19:58 16:37 11:19 WBC RBC Hgb Hct MCV MCH MCHC RDW Plt Count MPV Neut % (Auto) Lymph % (Auto) [place] % (Auto) Eos % (Auto) Baso % (Auto) Neut # (Auto) Lymph # (Auto) [place] # (Auto) Eos # (Auto) Baso # (Auto) Nucleated RBC % (a uto) Nucleated RBCs # Sodium Potassium Chloride Carbon Dioxide Anion Gap BUN Creatinine GFR Calculation Glucose POC Glucose 328 H 258 H 232 H Calculated Osmolal ity Calcium Total Bilirubin AST ALT Alkaline Phosphata se Total Protein Albumin Globulin Vitals: Last Vital Signs Temp 98.3 F 09/07/20 07:29 Pulse 76 09/07/20 07:29 Resp 16 09/07/20 07:29 BP 158/82 09/07/20 09:39 Pulse Ox 98 09/07/20 10:22 Discharge Plan Discharge Patient Disposition: Home Health Service Condition: Stable Prescriptions: New polyethylene glycol 3350 17 gram Powder In Packet 17 g PO BID Qty: 60 RF: 0 levofloxacin 750 mg Tablet 750 mg PO DAILY@0600 Qty: 5 RF: 0 prednisone 20 mg Tablet 20 mg PO DAILY Qty: 3 RF: 0 Plavix 75 mg tablet 75 mg PO DAILY 30 Days Qty: 30 RF: 0 Entresto 24-26 mg tablet 1 tab PO BID 30 Days Qty: 60 RF: 5 Lasix 40 mg tablet 40 mg PO DAILY 30 Days Qty: 30 RF: 0 spironolactone 25 mg tablet 25 mg PO DAILY 30 Days Qty: 30 RF: 0 metoprolol tartrate 50 mg tablet 50 mg PO BID 30 Days Qty: 60 RF: 5 Continued atorvastatin 80 mg tablet 80 mg PO DAILY Qty: 30 RF: 11 tamsulosin 0.4 mg capsule 0.4 mg PO DAILY Qty: 30 RF: 11 glimepiride 4 mg tablet See Rx Instructions .ROUTE .COMPLEX Qty: 90 RF: 0 albuterol sulfate 90 mcg/actuation HFA aerosol inhaler 2 inh inhalation Q6H PRN (Reason: shortness of breath or wheezing) Qty: 18 RF: 2 aspirin 81 mg Tablet 81 mg PO DAILY RF: 0 Held metformin 1,000 mg tablet See Rx Instructions .ROUTE .COMPLEX Qty: 180 RF: 0 Hold Instructions: Resume on 09/09/20. Discontinued lisinopril 10 mg tablet 10 mg PO DAILY Qty: 90 RF: 3 atenolol 100 mg tablet 100 mg PO DAILY Qty: 90 RF: 3 No Action (DME) blood-glucose meter Kit See Rx Instructions .ROUTE .MEDSUPPLY Qty: 1 RF: 0 Discharge Orders: Discharge Order (Routine); Ordered 09/07/20 Ordered By: Willy Peres Referrals: Ambar Prince MD [Physician] - 10/09/20 2:00 pm (You have a cardiology followup with Dr. Prince at [facility] on October 09 at 2:00pm) Kuldip Richter DO [Primary Care Provider] - 09/12/20 1:00 pm (You have a hospital followup with Dr. Richter at [facility] on September 12 at 1:00) Lauren Hamilton FNP [Nurse Practitioner] - 09/13/20 1:00 pm (You have a post procedure followup with APARNA Locek at [facility] on September 13 at 1:00pm) Discharge Diet: Cardiac and Diabetic Discharge Activity: Increase activity as tolerated, Limit activity as instructed and As per PT/OT instructions Patient Instructions: Prednisone (By mouth), Levofloxacin (By mouth), Polyethylene Glycol 3350 (By mouth), Heart Failure (GEN), Coronary Artery Disease (DC), Left Heart Catheterization (DC), Coronary Angioplasty (DC), Community-acquired Pneumonia (GEN), Chest Pain Stoplight, Post Angiogram Home Care Instructions Activity Restrictions/Additional Instructions: If you experience any worsening shortness of breath, chest pain or pressure, any lightheadedness, episode of fainting, or other concerning symptoms, please seek medical addition without delay. Please follow-up on setting up for LifeVest as instructed. Keep LifeVest on at all times except during the shower, or as otherwise instructed. Please monitor blood pressures and heart rates at home 3 times daily, record values to bring to your appointment. Continue to work with your primary care doctor to optimize diabetes control. Discharge Attestations Time Spent in Discharge Care*: greater than 30 min Quality Metrics Clinical Quality Measures During this hospital stay, did patient experience: None Coding Level of Care Code Acute Pruner for Abdirizakg Fwd Exam Comprehensive Diagnoses Acute non-ST elevation myocardial infarction (NSTEMI) I21.4 Acute on chronic diastolic (congestive) heart failure I50.33 Dyslipidemia (high LDL; low HDL) E78.5 Essential hypertension I10 Ischemic cardiomyopathy I25.5 Acute systolic (congestive) heart failure I50.21 COPD exacerbation J44.1
[2020-09-07 11:27] LABS: Glucose Point of Care 180 mg/dL (70-110)
--- NOTE | 2020-09-07 12:17 | DCPLANNER ---
IMM completed with pt on 09/07/20 @ 0835. Copy of rights given to pt.
--- NOTE | 2020-09-07 14:56 | PC.NURSE ---
patient awaiting meds to beds and life vest placement patient notified he was approved for life vest patient has been waiting discharge all day patient is willing to wait for medication however is not willing to wait for life vest placement [employer] manufacturer's representative notified and will arrange for placement at patients home
--- NOTE | 2020-09-07 15:30 | PC.NURSE ---
patient provided with discharge instructions and medications provided by pharmacy to bedside patient and at bedside for all mediation education as well as follow up appointments; verbalized understanding of all information given. patient assisted to wheel chair and accompanied to private vehicle by staff patient alert oriented and in stable condition upon departure
== END 2020-09-07 15:30 | disposition home health service (06) | DRG 871 ==
LOC: ER 00:40 → MEDSURG 03:01 → ICU 07:39 → CSU 09-05 17:54
PROVIDERS: Internal Medicine; Internal Medicine Cardiovascular Disease; Admitting Provider Internal Medicine; Emergency Provider Emergency Medicine; PCP Family Medicine; Visit Provider Internal Medicine
DX: A41.9 Sepsis, unspecified organism (principal); J18.9 Pneumonia, unspecified organism; J96.01 Acute respiratory failure with hypoxia; I50.33 Acute on chronic diastolic (congestive) heart failure; I21.4 Non-ST elevation (NSTEMI) myocardial infarction; J44.0 Chronic obstructive pulmonary disease with (acute) lower respiratory infection; I25.10 Atherosclerotic heart disease of native coronary artery without angina pectoris; I25.5 Ischemic cardiomyopathy; E11.9 Type 2 diabetes mellitus without complications; Z79.82 Long term (current) use of aspirin; Z95.0 Presence of cardiac pacemaker; Z95.5 Presence of coronary angioplasty implant and graft; I11.0 Hypertensive heart disease with heart failure
CPT/HCPCS: 36415; 36416; 36600; 71045; 80053; 82805; 82962; 83880; 84145; 84484; 85025; 85378; 85610; 86403; 87040; 87426; 87449; 93005; 93306; 93452; 93571; 94640; 94660; 94760; 96372; 96374; 96375; 97161; 97530; 99291; C1769; C1887; C1894; J0153; J0696; J1644; J1650; J1815; J1940; J2060; J2250; J2930; J3010; J3490; J7030; J7512; J7611; Q0144; Q9967

== ENCOUNTER → 2020-09-13 11:17 | Outpatient (BNVA) | payer MEDICARE, SELFPAY | PROVIDERS: PCP Family Medicine; Visit Provider Nurse Practitioner Family | DX: I25.10 Atherosclerotic heart disease of native coronary artery without angina pectoris (principal); I50.21 Acute systolic (congestive) heart failure | CPT/HCPCS: 80048 ==

== ENCOUNTER → 2020-10-09 11:15 | Outpatient (BNVA) | payer MEDICARE, SELFPAY | PROVIDERS: PCP Family Medicine; Visit Provider Internal Medicine Cardiovascular Disease | DX: I25.10 Atherosclerotic heart disease of native coronary artery without angina pectoris (principal); I50.21 Acute systolic (congestive) heart failure; I25.5 Ischemic cardiomyopathy | CPT/HCPCS: 80048; 83880 ==

== ENCOUNTER → 2020-10-17 11:18 | Outpatient (BNVA) | payer MEDICARE, SELFPAY | PROVIDERS: PCP Family Medicine; Visit Provider Family Medicine | DX: E11.8 Type 2 diabetes mellitus with unspecified complications (principal) | CPT/HCPCS: 83036 ==

== ENCOUNTER → 2020-11-08 10:30 | Outpatient (BNVA) | payer MEDICARE, SELFPAY | PROVIDERS: PCP Family Medicine; Visit Provider Nurse Practitioner Family | DX: I25.10 Atherosclerotic heart disease of native coronary artery without angina pectoris (principal); I25.5 Ischemic cardiomyopathy; I50.21 Acute systolic (congestive) heart failure | CPT/HCPCS: 80048 ==

== ENCOUNTER → 2021-01-21 11:34 | Outpatient (BNVA) | payer MEDICARE, SELFPAY | PROVIDERS: PCP Family Medicine; Visit Provider Family Medicine | DX: J44.1 Chronic obstructive pulmonary disease with (acute) exacerbation (principal); R06.02 Shortness of breath | CPT/HCPCS: 71046 ==

== ENCOUNTER → 2021-02-12 12:11 | Outpatient (BNVA) | payer MEDICARE, SELFPAY | PROVIDERS: PCP Family Medicine; Visit Provider Internal Medicine Cardiovascular Disease | DX: I25.10 Atherosclerotic heart disease of native coronary artery without angina pectoris (principal); I25.5 Ischemic cardiomyopathy; I50.21 Acute systolic (congestive) heart failure; R06.02 Shortness of breath; I50.33 Acute on chronic diastolic (congestive) heart failure | CPT/HCPCS: 80048; 83880 ==

== ENCOUNTER → 2021-03-12 10:35 | Outpatient (BNVA) | payer MEDICARE, SELFPAY | PROVIDERS: PCP Family Medicine; Visit Provider Nurse Practitioner Family | DX: I50.21 Acute systolic (congestive) heart failure (principal); I10 Essential (primary) hypertension | CPT/HCPCS: 80048; 83880 ==

== ENCOUNTER → 2021-05-10 14:16 | Outpatient (BNVA) | payer MEDICARE, SELFPAY | PROVIDERS: PCP Family Medicine; Visit Provider Family Medicine | DX: J44.1 Chronic obstructive pulmonary disease with (acute) exacerbation (principal); I27.0 Primary pulmonary hypertension | CPT/HCPCS: 71046 ==

== ENCOUNTER 2021-09-30 17:54 | Emergency (ER) | payer MEDICARE, SELFPAY ==
--- NOTE | 2021-09-30 18:03 | ECG_ITS ---
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 Measurements Intervals [place] Rate: 60 P: 104 [place]: 218 QRS: -51 QRSD: 218 T: 46 QT: 489 QTc: 491 Interpretive Statements ELECTRONIC ATRIAL PACEMAKER ELECTRONIC VENTRICULAR PACEMAKER Compared to ECG 09/04/2020 05:44:18 No significant changes Electronically Signed On 09-30-2021 22:00:17 CDT by Earle Cuevas M.D. [email or web address] centerAcesoBeemer[facility].[employer]/store/OM/[id number]
--- NOTE | 2021-09-30 18:03 | XR_ITS ---
WS: [id number] Exam: XR chest 1V portable [id number] Date/Time of Exam: 09/30/2021 6:06 PM Reason For Exam: cp Comparison 05/10/2021. The lungs are fully expanded and clear. No pleural effusions. Cardiomediastinal silhouette is unremar kable. A permanent cardiac pacer superimposes the left chest. Regional bony elements are intact. XR/XR chest 1V portable [id number] IMPRESSION: 1. No acute cardiopulmonary finding. No change.
[2021-09-30 18:15] VITALS: BP 144/84; PULSE 60; RESP 18; TEMP 36.3; O2SAT 96
--- NOTE | 2021-09-30 20:03 | ECG_ITS ---
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 Measurements Intervals [place] Rate: 60 P: 256 [place]: 216 QRS: 41 QRSD: 236 T: 60 QT: 506 QTc: 506 Interpretive Statements ELECTRONIC ATRIAL PACEMAKER ELECTRONIC VENTRICULAR PACEMAKER Compared to ECG 09/30/2021 20:13:09 No significant changes Electronically Signed On 09-30-2021 22:04:14 CDT by Earle Cuevas M.D. [email or web address]/store/[id number]
[2021-09-30 21:16] LABS: Basophils % 0.5 %; Eosinophils # 0.5 10^3/uL (0.0-0.8); Eosinophils % 7.5 %; Hematocrit 37.9 % (42.0-52.0); Lymphocytes # 1.1 10^3/uL (0.8-4.8); Lymphocytes % 18.9 %; Mean Corpuscular HGB Conc 34.3 g/dL (30.0-36.0); Mean Corpuscular Hemoglobin 33.8 pg (28.0-34.0); Mean Corpuscular Volume 98.4 fl (80-94); Mean Platelet Volume 9.9 fL (7.4-10.4); Monocytes # 0.6 10^3/uL (0.2-0.9); Monocytes % 10.6 %; Neutrophils # 3.76 10^3/uL (1.8-7.7); Neutrophils % 62.3 %; Nucleated Red Blood Cells % 0 %; Platelet Count 177 10^3/cmm (130-400); Red Blood Count 3.85 10^6/uL (4.1-5.3); Red Cell Distribution Width 12.7 % (12.1-15.1)
--- NOTE | 2021-09-30 21:25 | W.ED.GENADLT ---
Documented by User: Andriy Ga MD 10/01/21 11:13 HPI - General Adult General: Chief complaint: Shortness of Breath/Dyspnea Stated complaint: Fluid on Heart\Dr Prince sent him Time Seen by Provider: 09/30/21 20:46 History of Present Illness: Patient is a 71-year-old male with a history of CAD s/p stents x 3, CHF, COPD, hyperlipidemia who presents the emergency room for evaluation of worsening dyspnea x2-month. Per patient, he has had about 5 pounds of weight gain in the last 2-month. Patient is currently taking spironolactone and Entresto for volume overload. Patient tells me that over the last week or so, he has had increasing cough requiring albuterol inhaler which has not been working. Patient denies any active chest pain, fever/chill, leg swelling, abdominal complaints, nausea/vomiting, diarrhea melena hematochezia. Onset: chronic x 3 month, worsening x 1 week Duration:ongoing Location:home Severity:moderate Associated symptoms: Reports dyspnea; Deny chest pain, nausea, rash, palpitations or vomiting Review of Systems Const: Denies: fever(s) or chills Eyes: Denies: change in vision ENMT: Denies: mouth pain Card: Denies: chest pain or palpitations Resp: Reports: dyspnea and non-productive cough GI: Denies: abdominal pain, nausea, vomiting or diarrhea : Denies: dysuria Musc: Denies: extremity pain Skin/Breast: Denies: rash or new lesions Neuro: Denies: weakness in extremities Psych: Reports: other (Normal mood) Mark/Lymph: Denies: easy bruising PFSH ED PFSH: Medical History Acute on chronic diastolic (congestive) heart failure CAD (coronary artery disease) Had PCI in 2017 following a heart attack CHF exacerbation COPD (chronic obstructive pulmonary disease) Dyslipidemia (high LDL; low HDL) Essential hypertension Non-ST elevation [place] (NSTEMI) Pacemaker Pneumonia Type 2 diabetes mellitus with complication, without long-term current use of insulin Surgical History History of PTCA S/P placement of cardiac pacemaker Family History Mother Cancer Family/Other Diabetes Father Lung disease Denies family history of CAD (coronary artery disease) Clotting disorder Dementia Chronic kidney disease (CKD) Suicide Anesthesia complication Bleeding disorder Stroke Social History Smoking and tobacco status: never smoked Alcohol intake: current Alcohol intake frequency: few times a week Physical Exam Const: COMMON NORMALS: alert HENMT: COMMON NORMALS: atraumatic HEAD & SCALP: atraumatic MOUTH: moist mucous membranes not abnormal Eye: COMMON NORMALS: EOMs intact bilaterally and conjunctivae normal CONJUNCTIVA: Yes conjunctivae normal Neck/C-Spine: COMMON NORMALS: full ROM and supple Resp: COMMON NORMALS: normal respiratory effort OTHER: +wheezes b/l Cardio: COMMON NORMALS: regular rate RATE: regular rate GI: COMMON NORMALS: Soft to palpation and non-tender PALPATION: Yes Soft to palpation Extremity: COMMON NORMALS: full ROM OTHER: no lower extremity swelling Neuro: SENSORIUM/ORIENTATION: Yes alert MOTOR EXAM: No Abnormal motor strength present and Other motor observations present (no focal motor deficits) Psych: COMMON NORMALS: speech normal SPEECH: Yes normal speech MOOD & AFFECT: Yes euthymic mood Course Vital Signs: Vital signs: Vital Signs Temperature 97.4 F L 09/30/21 18:15 Pulse Rate 83 09/30/21 23:36 Respiratory Rate 18 09/30/21 23:36 Blood Pressure 168/63 09/30/21 23:36 Pulse Oximetry 95 09/30/21 23:36 MDM - General Adult Medical Decision Making 71-year-old male with history of COPD, CHF, CAD s/p stent x3 presenting to emergency room with cough and dyspnea acutely worsening over the last week in the setting of 3-month of worsening dyspnea. On exam, patient has bilateral wheezing. No increased work of breathing or accessory muscle use. No signs of volume overload. WBC of 6K, proBNP of 1900 similar to baseline. He received DuoNeb and Decadron with significant improvement in wheezing symptoms. Inital troponin of 30, pending repeat. Case signed out to Dr. Carlton pending reassessment and delta troponin Lab Data : 09/30/21 21:10 09/30/21 21:10 Radiology Impressions Chest X-Ray 09/30/21 18:03 IMPRESSION: 1. No acute cardiopulmonary finding. No change. Laboratory Results WBC 6.0 10^3/uL (4.0-10.0) 09/30/21 21:10 RBC 3.85 10^6/uL (4.1-5.3) L 09/30/21 21:10 Hgb 13.0 g/dL (11.7-16.6) 09/30/21 21:10 Hct 37.9 % (42.0-52.0) L 09/30/21 21:10 MCV 98.4 fl (80-94) H 09/30/21 21:10 MCH 33.8 pg (28.0-34.0) 09/30/21 21:10 MCHC 34.3 g/dL (30.0-36.0) 09/30/21 21:10 RDW 12.7 % (12.1-15.1) 09/30/21 21:10 Plt Count 177 10^3/cmm (130-400) 09/30/21 21:10 MPV 9.9 fL (7.4-10.4) 09/30/21 21:10 Neut % (Auto) 62.3 % 09/30/21 21:10 Lymph % (Auto) 18.9 % 09/30/21 21:10 [place] % (Auto) 10.6 % 09/30/21 21:10 Eos % (Auto) 7.5 % 09/30/21 21:10 Baso % (Auto) 0.5 % 09/30/21 21:10 Neut # (Auto) 3.76 10^3/uL (1.8-7.7) 09/30/21 21:10 Lymph # (Auto) 1.1 10^3/uL (0.8-4.8) 09/30/21 21:10 [place] # (Auto) 0.6 10^3/uL (0.2-0.9) 09/30/21 21:10 Eos # (Auto) 0.5 10^3/uL (0.0-0.8) 09/30/21 21:10 Baso # (Auto) 0.0 10^3/uL (0.0-0.1) 09/30/21 21:10 Nucleated RBC % (auto) 0 % 09/30/21 21:10 Nucleated RBCs # 0.0 /100WBC 09/30/21 21:10 Sodium 132 mmol/L (136-145) L 09/30/21 21:10 Potassium 3.6 mmol/L (3.5-5.1) 09/30/21 21:10 Chloride 97 mmol/L (98-107) L 09/30/21 21:10 Carbon Dioxide 25 mmol/L (22-29) 09/30/21 21:10 Anion Gap 13.6 (5-19) 09/30/21 21:10 BUN 8 mg/dL (8-23) 09/30/21 21:10 Creatinine 0.7 mg/dL (0.7-1.2) 09/30/21 21:10 GFR Calculation Not Reportable 09/30/21 21:10 Glucose 101 mg/dL (65-115) 09/30/21 21:10 Calculated Osmolality 272 mOsm/kg (285-295) L 09/30/21 21:10 Calcium 9.0 mg/dL (8.5-10.5) 09/30/21 21:10 Total Bilirubin 0.6 mg/dL (0.15-1.2) 09/30/21 21:10 AST 13 U/L (0-40) 09/30/21 21:10 ALT 10 U/L (0-41) 09/30/21 21:10 Alkaline Phosphatase 49 IU/L (40-130) 09/30/21 21:10 Troponin T Baseline 32 ng/L (0-15) H 09/30/21 21:10 Troponin T 120 Minute 35.62 ng/L (0-15) H 09/30/21 23:05 Delta Troponin T 3.62 ABS# (0-10) 09/30/21 23:05 NT-Pro-B Natriuret Pep 1985 pg/mL (0-125) H 09/30/21 21:10 Total Protein 6.1 g/dL (6.6-8.7) L 09/30/21 21:10 Albumin 4.3 g/dL (3.5-5.2) 09/30/21 21:10 Globulin 1.8 g/dL (1.3-4.6) 09/30/21 21:10 Discharge Plan Discharge Patient Disposition: Home Clinical Impression: Acute exacerbation of chronic obstructive airways disease, CHF (congestive heart failure) Condition: Stable Prescriptions: No Action spironolactone 25 mg tablet 25 mg PO DAILY Qty: 90 2RF polyethylene glycol 3350 17 gram powder in packet 17 g PO DAILY PRN (Reason: constipation) 0RF Entresto 97-103 mg tablet 1 tab PO BID Qty: 180 3RF (DME) blood-glucose meter Kit See Rx Instructions .ROUTE .MEDSUPPLY Qty: 1 0RF Rx Instructions: As directed tamsulosin 0.4 mg capsule 0.4 mg PO DAILY Qty: 30 11RF atorvastatin 80 mg tablet 80 mg PO DAILY Qty: 30 11RF potassium chloride [Klor-Con 10] 10 mEq tablet extended release 10 meq PO DAILY Qty: 90 3RF metoprolol tartrate 50 mg tablet 50 mg PO BID 30 Days Qty: 60 11RF Plavix 75 mg tablet 75 mg PO DAILY Qty: 90 2RF Lasix 40 mg tablet 40 mg PO BID Qty: 60 5RF albuterol sulfate 90 mcg/actuation HFA aerosol inhaler See Rx Instructions .ROUTE .COMPLEX Qty: 18 11RF Dose Instruction: INHALE 2 PUFFS BY MOUTH EVERY 6 HOURS NEEDED FOR SHORTNESS OF BREATH Rx Instructions: INHALE 2 PUFFS BY MOUTH EVERY 6 HOURS NEEDED FOR SHORTNESS OF BREATH Aspir-81 81 mg Tablet,Delayed Release (Dr/Ec) 81 mg PO DAILY 0RF metformin 1,000 mg tablet 1,000 mg PO BID 0RF glimepiride 4 mg tablet 4 mg PO DAILY 0RF Discharge Orders: Discharge ED (Routine); Ordered 09/30/21 Ordered By: Velma Carlton Referrals: Kuldip Richter DO [Primary Care Provider] - 1-3 days Discharge Diet: Advance as tolerated Discharge Activity: Resume usual activity Patient Instructions: COPD (Chronic Obstructive Pulmonary Disease) (ED) Coding Level of Care Code ED Impregnator for Chg Fwd Exam Comprehensive Documented by User: Velma Carlton MD 09/30/21 23:46 HPI - General Adult General: Chief complaint: Shortness of Breath/Dyspnea Stated complaint: Fluid on Heart\Dr Prince sent him Time Seen by Provider: 09/30/21 20:46 PFSH ED PFSH: Medical History Acute on chronic diastolic (congestive) heart failure CAD (coronary artery disease) Had PCI in 2017 following a heart attack CHF exacerbation COPD (chronic obstructive pulmonary disease) Dyslipidemia (high LDL; low HDL) Essential hypertension Non-ST elevation [place] (NSTEMI) Pacemaker Pneumonia Type 2 diabetes mellitus with complication, without long-term current use of insulin Surgical History History of PTCA S/P placement of cardiac pacemaker Family History Mother Cancer Family/Other Diabetes Father Lung disease Denies family history of CAD (coronary artery disease) Clotting disorder Dementia Chronic kidney disease (CKD) Suicide Anesthesia complication Bleeding disorder Stroke Social History Smoking and tobacco status: never smoked Alcohol intake: current Alcohol intake frequency: few times a week Course Vital Signs: Vital signs: Vital Signs Temperature 97.4 F L 09/30/21 18:15 Pulse Rate 83 09/30/21 23:36 Respiratory Rate 18 09/30/21 23:36 Blood Pressure 168/63 09/30/21 23:36 Pulse Oximetry 95 09/30/21 23:36 [facility] - General Adult Medical Decision Making 71-year-old male with history of COPD, CHF, CAD s/p stent x3 presenting to emergency room with cough and dyspnea acutely worsening over the last week in the setting of 3-month of worsening dyspnea. On exam, patient has bilateral wheezing. No increased work of breathing or accessory muscle use. No signs of volume overload. WBC of 6K, proBNP of 1900 similar to baseline. He received DuoNeb and Decadron with significant improvement in wheezing symptoms. Inital troponin of 30, pending repeat. Case signed out to Dr. Carlton pending reassessment and delta troponin Took patient over from Dr. Ga to follow 2-hour troponin which was negative. Does have dyspnea likely due to his COPD he feels improved he is stable for discharge continue take his Lasix follow-up with his primary care doctor return if worsening. Lab Data : 09/30/21 21:10 09/30/21 21:10 Radiology Impressions Chest X-Ray 09/30/21 18:03
[2021-09-30] MEDS: dexamethasone 10 mg/mL INJ IVP (21:33)
[2021-09-30 21:35] VITALS: BP 143/77; PULSE 75; RESP 18; O2SAT 97
[2021-09-30 21:37] LABS: Troponin(5th) Baseline 32 ng/L (0-15)
[2021-09-30 21:45] LABS: Alanine Aminotransferase 10 U/L (0-41); Albumin Level 4.3 g/dL (3.5-5.2); Alkaline Phosphatase 49 IU/L (40-130); Anion Gap 13.6 (5-19); Aspartate Amino Transferase 13 U/L (0-40); Blood Urea Nitrogen 8 mg/dL (8-23); Carbon Dioxide 25 mmol/L (22-29); Chloride 97 mmol/L (98-107); Creatinine Clr Calc Pharmacy 87.9467; Globulin 1.8 g/dL (1.3-4.6); Glucose 101 mg/dL (65-115); NT Pro B Type Natriuretic Pept 1985 pg/mL (0-125); Osmolality Calculated 272 mOsm/kg (285-295); Potassium 3.6 mmol/L (3.5-5.1); Sodium 132 mmol/L (136-145); Total Bilirubin 0.6 mg/dL (0.15-1.2); Total Protein 6.1 g/dL (6.6-8.7)
[2021-09-30 22:28] VITALS: PULSE 78; RESP 18; O2SAT 95
[2021-09-30] MEDS: ipratropium-albuterol 3 mL Neb INHALATION ×3 (22:28→22:36)
[2021-09-30 22:34] VITALS: PULSE 68; RESP 18; O2SAT 100
[2021-09-30 22:39] VITALS: PULSE 73; RESP 16; O2SAT 100
[2021-09-30 23:31] LABS: Troponin 5 2HR 35.62 ng/L (0-15)
[2021-09-30 23:36] VITALS: BP 168/63; PULSE 83; RESP 18; O2SAT 95
[2021-09-30 23:37] LABS: Troponin 5 2HR Delta 3.62 ABS# (0-10)
[2021-10-01] MEDS: FUROsemide 10 mg/mL SDV 4mL 40 MG IVP (00:25)
== END 2021-10-01 00:32 | disposition home or self-care (01) ==
PROVIDERS: Emergency Provider Emergency Medicine; PCP Family Medicine
DX: J44.1 Chronic obstructive pulmonary disease with (acute) exacerbation (principal); I11.0 Hypertensive heart disease with heart failure; I50.9 Heart failure, unspecified; I25.10 Atherosclerotic heart disease of native coronary artery without angina pectoris; E11.9 Type 2 diabetes mellitus without complications; Z95.5 Presence of coronary angioplasty implant and graft; Z79.82 Long term (current) use of aspirin; Z79.02 Long term (current) use of antithrombotics/antiplatelets; Z79.84 Long term (current) use of oral hypoglycemic drugs; Z95.0 Presence of cardiac pacemaker
CPT/HCPCS: 36415; 71045; 80053; 83880; 84484; 85025; 93005; 94640; 96374; 96375; 99284; J1100; J1940

== ENCOUNTER → 2021-11-26 09:47 | Outpatient (BNVA) | payer MEDICARE, SELFPAY | PROVIDERS: PCP Family Medicine; Visit Provider Internal Medicine Cardiovascular Disease | DX: I25.10 Atherosclerotic heart disease of native coronary artery without angina pectoris (principal); I25.5 Ischemic cardiomyopathy; Z95.0 Presence of cardiac pacemaker; E78.5 Hyperlipidemia, unspecified; I11.0 Hypertensive heart disease with heart failure; I50.33 Acute on chronic diastolic (congestive) heart failure; E11.8 Type 2 diabetes mellitus with unspecified complications; Z79.84 Long term (current) use of oral hypoglycemic drugs | CPT/HCPCS: 99214 ==

== ENCOUNTER 2022-02-14 11:54 | Outpatient (CLI) | payer MEDICARE, SELFPAY ==
--- NOTE | 2022-02-14 12:45 | USCV_ITS ---
Gustavo Mcgill Age: 71 Gender: M : 1950 Exam Date: 02/14/2022 12:12 Ordering Phys: Ambar Prince MD ([email or web address]) Technologist: Sonya Venegas Exam Location: [facility] – [place] Indication: ischemic cardiomyopathy BP: 118 / 80 HR: 69 Rhythm: Sinus Technical Quality: Adequate MEASUREMENTS (Male / Female) Normal Values 2D ECHO LV Diastolic Diameter PLAX 5.6 cm 4.2 - 5.9 / 3.9 - 5.3 cm LV Systolic Diameter PLAX 4.6 cm IVS Diastolic Thickness 1.5 cm 0.6 - 1.0 / 0.6 - 0.9 cm IVS Systolic Thickness 1.2 cm LVPW Diastolic Thickness 0.8 cm 0.6 - 1.0 / 0.6 - 0.9 cm LVPW Systolic Thickness 1.5 cm LVOT Diameter 2.1 cm LV Ejection Fraction 2D Teich 36.2 % LV Ejection Fraction MOD 2C 20.2 % LV Ejection Fraction 2C AL 21.0 % LA Diameter 3.7 cm LA Width 3.8 cm LA Height 4.8 cm RA Width 4.0 cm RA Height 3.1 cm Aorta at Sinotubular Diameter 3.4 cm IVC Diameter 1.2 cm M-MODE MV E Point Septal Separation 2.3 cm DOPPLER MV E' Velocity 5.0 cm/s PV Peak Velocity 76.0 cm/s RV Acceleration Time 0.1 s RV Ejection Time 0.3 s RV AcT/ET 0.5 FINDINGS Left Ventricle Severe diffuse hypokinesia of the left ventricle. LV ejection fraction around 26%. Mildly dilated LV cavity . Right Ventricle Normal right ventricular size and ejection fraction. Somewhat dyskinetic LV apex Right Atrium The right atrium is normal in size. Left Atrium Mildly increased left atrial size. Mitral Valve Structurally normal mitral valve. Aortic Valve Thickened aortic valve. Trace to mild aortic valve regurgitation. Tricuspid Valve No gross abnormalities noted Pulmonic Valve Pulmonic valve not well visualized. Pericardium No pericardial effusion. Aorta Normal aortic annulus size. IVC Normal inferior vena cava. CONCLUSIONS Severe diffuse hypokinesia of the left ventricle. LV ejection fraction around 26%. Mildly dilated LV cavity . Normal right ventricular size and ejection fraction. Somewhat dyskinetic RV apex. Thickened aortic valve. Trace to mild aortic valve regurgitation. Mildly increased left atrial size. The PA pressure was not calculated There is no pericardial effusion. There are no intracardiac masses. No similar previous studies are available for comparison Dr Ambar Prince MD [facility] (Electronically Signed) Final Date: 14 February 2022 15:00 S
== END 2022-02-14 11:55 | disposition home or self-care (01) ==
LOC: RAD 11:55
PROVIDERS: PCP Family Medicine; Visit Provider Internal Medicine Cardiovascular Disease
DX: I25.5 Ischemic cardiomyopathy (principal); I35.8 Other nonrheumatic aortic valve disorders; I42.0 Dilated cardiomyopathy
CPT/HCPCS: 93308

== ENCOUNTER → 2022-07-09 12:40 | Outpatient (BNVA) | payer MEDICARE, SELFPAY | PROVIDERS: PCP Family Medicine; Visit Provider Nurse Practitioner Family | DX: I11.0 Hypertensive heart disease with heart failure (principal); I50.9 Heart failure, unspecified; I25.5 Ischemic cardiomyopathy; Z95.0 Presence of cardiac pacemaker | CPT/HCPCS: 99214 ==

== ENCOUNTER → 2022-07-29 13:11 | Outpatient (BNVA) | payer MEDICARE, SELFPAY | PROVIDERS: PCP Family Medicine; Visit Provider Thoracic Surgery (Cardiothoracic Vascular Surgery) | DX: I11.0 Hypertensive heart disease with heart failure (principal); I50.9 Heart failure, unspecified | CPT/HCPCS: 99203 ==

== ENCOUNTER 2022-08-26 15:36 | Observation (INO) | payer MEDICARE, SELFPAY ==
[2022-08-21 10:30] VITALS: BMI 28.8
[2022-08-21 10:50] LABS: Basophils % 0.5 %; Eosinophils # 0.4 10^3/uL (0.0-0.8); Eosinophils % 6.2 %; Hematocrit 36.5 % (42.0-52.0); Hemoglobin 12.6 g/dL (11.7-16.6); Lymphocytes # 1.2 10^3/uL (0.8-4.8); Lymphocytes % 17.6 %; Mean Corpuscular HGB Conc 34.5 g/dL (30.0-36.0); Mean Corpuscular Hemoglobin 33.9 pg (28.0-34.0); Mean Corpuscular Volume 98.1 fl (80-94); Mean Platelet Volume 9.8 fL (7.4-10.4); Monocytes # 0.6 10^3/uL (0.2-0.9); Monocytes % 8.6 %; Neutrophils # 4.45 10^3/uL (1.8-7.7); Neutrophils % 66.8 %; Nucleated Red Blood Cells % 0 %; Platelet Count 194 10^3/cmm (130-400); Red Blood Count 3.72 10^6/uL (4.1-5.3); Red Cell Distribution Width 12.8 % (12.1-15.1); White Blood Count 6.7 10^3/uL (4.0-10.0)
--- NOTE | 2022-08-21 10:53 | ECG_ITS ---
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 Measurements Intervals [place] Rate: 60 P: 203 [place]: 245 QRS: -40 QRSD: 216 T: 183 QT: 486 QTc: 486 Interpretive Statements ELECTRONIC ATRIAL PACEMAKER ELECTRONIC VENTRICULAR PACEMAKER ABNORMAL RHYTHM ECG Compared to ECG 09/30/2021 21:50:05 No significant changes Electronically Signed On 08-21-2022 20:11:15 MAGNETO REPAIRER by Ambar Prince M.D. [email or web address] [email or web address] [employer]/store/[id number]
[2022-08-21 10:59] LABS: Add Urine Microscopic? NO; Charge for UA Resulting for Rev
[2022-08-21 11:11] LABS: Anion Gap 14.3 (5-19); Blood Urea Nitrogen 11 mg/dL (8-23); Calcium 8.8 mg/dL (8.5-10.5); Carbon Dioxide 26 mmol/L (22-29); Chloride 94 mmol/L (98-107); Glucose 178 mg/dL (65-115); Osmolality Calculated 274 mOsm/kg (285-295); Potassium 4.3 mmol/L (3.5-5.1); Sodium 130 mmol/L (136-145)
[2022-08-21 11:18] LABS: Bilirubin Urine Neg (Negative); Blood Urine Neg (Negative); Glucose Urine UA Norm (Normal); Ketones Urine Negative (Negative); Leukocyte Esterase Urine Negative (Negative); Nitrate Urine Negative (Negative); Protein Urine Neg (Negative); Urine Appearance Clear (CLEAR); Urine Color Light yellow (Yellow); Urobilinogen Urine Norm (Negative); pH Urine 7 (5-7)
--- NOTE | 2022-08-21 13:15 | P.ANESASSM_ITS ---
Pre-Anesthetic Assessment Height/Weight: Height 1.73 m Weight 86.183 kg Preop Diagnosis: Non-ST relation myocardial infarction/congestive heart failure Operation Date: 08/26/22 07:00 Proposed Procedures p Defibrillator Placement 49480,I50.9(Not Applicable) - Michel Becker MD Familial anesthetic complications: none Was Beta Edwige taken within 24 hours: N/A Was Clonidine taken within 24 hours: N/A Social No alcohol and No tobacco Exam alert, oriented x 3, clear to auscultation bilaterally and regular rate & rhythm Airway Submandibular: within normal limits Cervical ROM: within normal limits Mallampati: Class II Dentition: chipped Pulmonary Chronic Obstructive Pulmonary Disease CV/HEM Anemia, Arrythmia, Coronary Artery Disease (stents), Congestive Heart Failure (EF 26%), Hypertension and Myocardial Infarction Pacemaker CONCLUSIONS ?Severe diffuse hypokinesia of the left ventricle.? LV ejection ?fraction around 26%.? Mildly dilated LV cavity .? ?Normal right ventricular size and ejection fraction.? Somewhat ?dyskinetic RV apex. ?Thickened aortic valve. Trace to mild aortic valve ?regurgitation. ?Mildly increased left atrial size. ?The PA pressure was not calculated ?There is no pericardial effusion. ?There are no intracardiac masses. ?No similar previous studies are available for comparison ?Dr Ambar Prince MD [facility] ?(Electronically Signed) ?Final Date:? ? ? 14 February 2022 Metabolic Diabetes Mellitus and Hyperlipidemia Medications/Allergies Home Medications Medication Instructions Recorded Confirmed Last Taken Type blood-glucose meter #1 ea 02/23/20 07/29/22 Unknown Rx spironolactone 25 mg tablet 25 mg PO DAILY #90 tabs 09/13/20 08/21/22 08/21/22 Rx polyethylene glycol 3350 17 gram 17 g PO DAILY PRN constipation 10/31/20 08/21/22 Unknown History oral powder packet albuterol sulfate 90 mcg/actuation See Rx Instructions .Route 09/18/21 08/21/22 08/14/22 Rx aerosol inhaler .COMPLEX #18 grams aspirin 81 mg tablet,delayed 81 mg PO DAILY 09/30/21 08/21/22 08/21/22 History release fluticasone propionate 115 2 puff inhalation BID #12 grams 10/02/21 08/21/22 05/23/22 Rx mcg-salmeterol 21 mcg/actuation HFA inhaler (Advair HFA) glimepiride 4 mg tablet 4 mg PO DAILY #90 tabs 10/02/21 08/21/22 08/21/22 Rx metformin 1,000 mg tablet 1,000 mg PO BID #180 tabs 10/02/21 08/21/22 08/21/22 Rx tamsulosin 0.4 mg capsule 0.4 mg PO DAILY #30 caps 01/09/22 08/21/22 08/21/22 Rx atorvastatin 80 mg tablet 80 mg PO DAILY #30 tabs 02/13/22 08/21/22 08/21/22 Rx potassium chloride 10 mEq 10 meq PO DAILY #90 tabs 02/28/22 08/21/22 08/20/22 Rx tablet,extended release (Klor-Con) metoprolol tartrate 50 mg tablet 50 mg PO BID 30 days #60 tabs 04/17/22 08/21/22 08/21/22 Rx sacubitril 97 mg-valsartan 103 mg 1 tab PO BID #180 tabs 07/09/22 08/21/22 08/21/22 Rx tablet (Entresto) clopidogrel 75 mg tablet (Plavix) 75 mg PO DAILY #90 tabs 07/31/22 08/21/22 08/21/22 Rx furosemide 40 mg tablet 40 mg PO BID 08/21/22 08/21/22 08/21/22 History Allergies Allergy/AdvReac Type Severity Reaction Status Date / Time No Known Allergies Allergy Verified 07/29/22 13:32 [facility] Anesthesia Medical History Acute on chronic diastolic (congestive) heart failure CAD (coronary artery disease) Had PCI in 2017 following a heart attack CHF exacerbation COPD (chronic obstructive pulmonary disease) Dyslipidemia (high LDL; low HDL) Essential hypertension Non-ST elevation [place] (NSTEMI) Pacemaker Pneumonia Type 2 diabetes mellitus with complication, without long-term current use of insulin Surgical History History of PTCA S/P placement of cardiac pacemaker Family History Mother Cancer Family/Other Diabetes Father Lung disease Denies family history of CAD (coronary artery disease) Clotting disorder Dementia Chronic kidney disease (CKD) Suicide Anesthesia complication Bleeding disorder Stroke Social History Smoking and tobacco status: never smoked Alcohol intake: current Alcohol intake frequency: few times a week Data Anesthesia 08/21/22 10:39 08/21/22 10:39 Short CBC 08/21/22 Range/Units 10:39 WBC 6.7 (4.0-10.0) 10^3/uL Hgb 12.6 (11.7-16.6) g/dL Hct 36.5 L (42.0-52.0) % MCV 98.1 H (80-94) fl Plt Count 194 (130-400) 10^3/cmm Neut % (Auto) 66.8 % Neut # (Auto) 4.45 (1.8-7.7) 10^3/uL BMP 08/21/22 10:39 Sodium 130 L Potassium 4.3 Chloride 94 L Carbon Dioxide 26 BUN 11 Creatinine 0.6 L Glucose 178 H Calcium 8.8 Urine 08/21/22 Range/Units 10:52 Urine Color Light yellow (Yellow) Urine Appearance Clear (CLEAR) Urine pH 7 (5-7) Ur Specific [place] 1.010 (1.005-1.030) Urine Protein Neg (Negative) Urine Glucose (UA) Norm (Normal) Urine Ketones Negative (Negative) Urine Nitrate Negative (Negative) Urine Bilirubin Neg (Negative) Ur Leukocyte Esterase Negative (Negative) Cardiac Studies: Echocardiogram Limited Views 02/14/22 Echocardiogram Ultrasound 09/04/20
[2022-08-26] VITALS (16 sets, daily range): BP systolic 99–143; BP diastolic 50–81; PULSE 60–92; RESP 14–18; TEMP 36.3–36.6; O2SAT 93–100; BMI 28.8
--- NOTE | 2022-08-26 05:49 | SC_ITS ---
WS: [id number] INTRAOPERATIVE TECHNIQUE: 2 Spot fluoroscopic images for intraoperative purposes. FLUOROSCOPY TIME: 172.5 seconds CLINICAL INFORMATION: AICD implantation COMPARISON: None. FINDINGS: Partially visualized AICD. Cardiomegaly. SC/C-arm FL for Pacemaker IMPRESSION: Images obtained for intraoperative purposes.
[2022-08-26 06:24] LABS: Glucose Point of Care 155 mg/dL (70-110)
--- NOTE | 2022-08-26 06:29 | W.PM.OPSUD ---
Surgery/Procedure H&P Update DATE OF PROCEDURE: August 26, 2022 DATE H&P PERFORMED: 07/29/22 H&P UPDATE INFORMATION: I have reviewed H&P completed within last 30 days, I have examined patient prior to procedure and No changes to prior documentation PREOP DIAGNOSIS: congestive heart failure PRIMARY INDICATION FOR PROCEDURE: Primary prevention of ventricular arrhythmia secondary to congestive heart failure PLANNED PROCEDURE: Operation Date: 08/26/22 07:00 Proposed Procedures p Defibrillator Placement 12581,I50.9(Not Applicable) - Michel Becker MD
[2022-08-26] MEDS: sodium chloride 0.9% 1,000 ML 30 ML IV (06:30)
--- NOTE | 2022-08-26 06:49 | P.ANESUD_ITS ---
Pre-Anesthetic Update Pre-Anesthetic Assessment: Date of Surgery/Procedure: 08/26/22 Preop Danielle gnosis: congestive heart failure Proposed Procedure: Operation Date: 08/26/22 07:00 Proposed Procedures p Defibrillator Placement 70188,I50.9(Not Applicable) - Michel Becker MD Any changes to Pre-Anesthetic Assessment?: No Last Intake: Intake Last Liquid Date 08/25/22 Last Liquid Time 17:00 Last Solid Date 08/25/22 Last Solid Time 16:00 Vitals: Temperature 97.8 F 08/26/22 06:04 Temperature Source Temporal Artery S can 08/26/22 06:04 Pulse Rate 79 08/26/22 06:04 Respiratory Rate 18 08/26/22 06:04 Blood Pressure 141/67 08/26/22 06:04 Blood Pressure Clementina n 91 08/26/22 06:04 Pulse Oximetry 99 08/26/22 06:04 Oxygen Delivery Me thod 08/26/22 06:08 Exam: Pre-Anes Outpt Exam: alert, oriented x 3, clear to auscultation bilaterally and regular rate & rhythm Cardiac Studies: Echocardiogram Limited Views 02/14/22 Echocardiogram Ultrasound 09/04/20
[2022-08-26] MEDS: ceFAZolin 2,000 MG in sodium chloride 0.9% (plus) 50 ML 100 MG IV ×3 (07:01→23:08)
[2022-08-26] MEDS: lidocaine 1% INJ 10 mL (per mL) 100 ML (07:41)
[2022-08-26] MEDS: ceFAZolin 1,000 mg SDV 1000 MG IRRIGATION (07:41)
--- NOTE | 2022-08-26 09:43 | XR_ITS ---
WS: [id number] Exam: XR chest 1V portable [id number] Date/Time of Exam: 08/26/2022 9:48 AM Reason For Exam: post defibrillator placement Comparison 09/30/2021. A cardiac pacer-defibrillator superimposes the left chest. The lungs are clear and fully expanded. Ca rdiomediastinal silhouette is unremarkable for portable technique. Bony elements are intact. No pleur al effusion. XR/XR chest 1V portable [id number] IMPRESSION: 1. No acute cardiopulmonary finding.
--- NOTE | 2022-08-26 09:53 | PC.NURSE ---
chest xray @ bedside
--- NOTE | 2022-08-26 09:54 | PC.NURSE ---
left paige immobilizer on. Ice to left upper chest incision
--- NOTE | 2022-08-26 11:26 | PM.OP ---
Operative Report Date of procedure: August 26, 2022 Pre-op diagnosis: Preop Diagnosis congestive heart failure Post-op diagnosis: same Procedure done: AICD implantation Implants: AICD generator AICD biventricular lead Pathology: none sent Surgeon: Michel Becker Anesthesia: MAC and Local Complications: None: Post procedure chest x-ray reveals appropriate lead placement and no evidence for pneumothorax Condition: stable Disposition: observation Brief History: Mr. Mcgill is a 71-year-old gentleman with refractory ischemic cardiomyopathy and congestive heart failure with a dual-lead [employer] pacemaker implanted in 2017 while in [place]. Due to his medically refractory congestive heart failure and documented ejection fraction of 26%, AICD implantation has been recommended by Dr. Prince. Rationale for this was carefully discussed with details and conduct of the procedure reviewed. All questions answered. Appropriate consents have been reviewed and signed. Procedure: Procedure: Mr. Mcgill was taken to the OR suite and placed in the supine position over a shoulder roll. He received conscious sedation with continuous anesthesia monitoring by. His entire chest was sterilely prepped and draped. 1% lidocaine was infiltrated in the left subclavicular region beneath the scar at the original pacemaker insertion site. While in Trendelenburg position, utilizing modified seldinger technique, a guidewire was placed in the left subclavian vein. This was confirmed in position by fluoroscopy. There was evidence for narrowing at the innominate vein/SVC junction and supple require the use of a Glidewire to successfully cross this region. A dilator and tear-away sheath were placed over the guidewire and advanced under fluoroscopy. Guidewire and dilator were removed. Next using a combination of curved and straight stylettes, the right ventricular AICD lead was placed in position by fluoroscopy. The distal screw was extended. Interrogation was then performed confirming appropriate parameters. The tear-away sheath was then removed and the ventricular lead was sewn to the floor of the subcutaneous pocket. After confirmation of appropriate parameters, the pseudocapsule was opened and the old pacemaker was delivered. Meticulous and careful dissection was then performed to dissect out the pacing leads from the pacemaker floor and subsequently opened the inferior margin of the pseudocapsule to expand the pacemaker pocket to allow accommodation of the larger AICD generator. Cautery was utilized as required to assist with hemostasis. Next, the Medtronic AICD generator was brought into the field, and after confirmation of hemostasis in the subcutaneous pocket, the lead was connected to the generator with appropriate capture. The atrial lead from the L system was then connected to the new AICD generator and the old RV lead was capped. The old pacemaker generator was removed from the field. The entire system was interrogated by fluoroscopy. Leads and generator were secured in the pocket. Sponge and needle count was correct. The wound was then closed in 2 layers of 3-0 Vicryl suture. Skin was reapproximated in a subcuticular manner with 4-0 Monocryl suture. Dermal glue was applied. A pressure dressing was applied. The left arm was placed in a sling. Mr. Mcgill had equal breath sounds bilaterally. He was then transferred to the PACU, where chest x-ray is currently pending. I did breastfeeding peer counselor with the family at the completion of the procedure. Following are the specifics of this system: Right ventricular lead is 62 cm and model 6935M. Serial number [id number] Ventricular lead had sensing of 20.1 mV with an impedance of 665 ohms. Threshold was 1.5 V Medtronic AICD generator: Model # [id number] Serial # [id number]
--- NOTE | 2022-08-26 13:22 | PC.NURSE ---
consistent carb diet paul arrived for patient in out patient surgery as he is still in extended care waiting for room assignment
[2022-08-26] MEDS: acetaminophen 500 mg Tablet PO (14:55)
--- NOTE | 2022-08-26 15:21 | ANE.PACU2 ---
Inpatient post-anesthesia follow up: Airway intact: Yes Vital signs: Temperature 97.4 F Pulse Rate 69 Respiratory Rate 18 Blood Pressure 115/50 Pulse Oximetry 98 Oxygen Delivery Me thod Room Air Oxygen Flow Rate 95 Fraction of Inspir ed Oxygen Hydration adequate: Yes Nausea and vomiting: No Pain level: 1 Mental status: Baseline
--- NOTE | 2022-08-26 15:33 | PC.NURSE ---
1533 report given to Sara
[2022-08-26 18:05] LABS: Glucose Point of Care 209 mg/dL (70-110)
[2022-08-26] MEDS: FUROsemide 40 mg Tablet PO (18:19)
[2022-08-26] MEDS: metoprolol tartrate 50 mg Tablet PO (18:19)
[2022-08-26] MEDS: insulin lispro 100 unit/1 mL SUBCUT (18:19)
[2022-08-26] MEDS: sacubitril/valsartan 24-26 mg Tablet 4 EACH PO (19:57)
[2022-08-26] MEDS: diphenhydrAMINE 25 mg Capsule PO (19:57)
[2022-08-26 20:39] LABS: Glucose Point of Care 158 mg/dL (70-110)
[2022-08-27] MEDS: HYDROcodone-acetaminophen 5-325 mg Tablet 1 TAB PO (02:40)
[2022-08-27 04:12] VITALS: PULSE 60
--- NOTE | 2022-08-27 06:03 | P.DS_ITS ---
Discharge Providers Date of Admission: 08/26/22 15:36 Date of Discharge: August 27, 2022 Attending Provider at Admission: Michel Becker MD Attending Provider at Discharge: Michel Becker MD Primary Care Provider: Kuldip Richter DO Reason for Visit Reason for Visit: heart failure Brief History: Mr. Mcgill is a 72-year-old gentleman with congestive heart failure and medically refractory ischemic cardiomyopathy with currently on dual chamber [employer] pacemaker in position since 2017. He is pacer dependent. Due to his heart failure and documented ejection fraction of 26%, AICD upgrade has been recommended by Dr. Prince for primary therapy. Hospital Course Hospital Course Mr. Mcgill was electively admitted and underwent upgrade of his pacemaker system to a Medtronic AICD with new RV lead and Medtronic AICD generator. Postoperative, he is convalesced on the cardiac stepdown peterson where he has done well. No arrhythmias have been reported. Vital signs have remained stable. Only modest postop discomfort. Device interrogation has been completed this morning. Surgical dressing was changed. Incision line is clean, dry, and intact. There is mild ecchymosis inferiorly and laterally. No evidence for substantial fluid collection. Plan will be for discharge to home today with fo llow-up in my clinic in 1 week. Activity restrictions have been carefully reviewed with him. At the time of discharge, he is in stable condition. Physical Exam Chest: OTHER: AICD insertion site is clean and dry with mild ecchymosis inferiorly. No evidence for fluid collection. Resp: COMMON NORMALS: normal respiratory effort and clear to auscultation bilaterally AUSCULTATION: clear to auscultation bilaterally Cardio: COMMON NORMALS: regular rate, regular rhythm and No murmurs present (Cardio) RATE: regular rate RHYTHM: regular rhythm Extremity: COMMON NORMALS: no clubbing, cyanosis or edema Discharge Data Studies Completed and Pending Completed Studies During Hospitalization Category Date Time Status XR chest 1V portable [id number] Stat Exams 08/26/22 09:43 Completed Radiology Impressions C-Arm Fluoroscopy 08/26/22 05:49 IMPRESSION: Images obtained for intraoperative purposes. Chest X-Ray 08/26/22 09:43 IMPRESSION: 1. No acute cardiopulmonary finding. Laboratory Results WBC 6.7 10^3/uL (4.0-10.0) 08/21/22 10:39 RBC 3.72 10^6/uL (4.1-5.3) L 08/21/22 10:39 Hgb 12.6 g/dL (11.7-16.6) 08/21/22 10:39 Hct 36.5 % (42.0-52.0) L 08/21/22 10:39 MCV 98.1 fl (80-94) H 08/21/22 10:39 MCH 33.9 pg (28.0-34.0) 08/21/22 10:39 MCHC 34.5 g/dL (30.0-36.0) 08/21/22 10:39 RDW 12.8 % (12.1-15.1) 08/21/22 10:39 Plt Count 194 10^3/cmm (130-400) 08/21/22 10:39 MPV 9.8 fL (7.4-10.4) 08/21/22 10:39 Neut % (Auto) 66.8 % 08/21/22 10:39 Lymph % (Auto) 17.6 % 08/21/22 10:39 [place] % (Auto) 8.6 % 08/21/22 10:39 Eos % (Auto) 6.2 % 08/21/22 10:39 Baso % (Auto) 0.5 % 08/21/22 10:39 Neut # (Auto) 4.45 10^3/uL (1.8-7.7) 08/21/22 10:39 Lymph # (Auto) 1.2 10^3/uL (0.8-4.8) 08/21/22 10:39 [place] # (Auto) 0.6 10^3/uL (0.2-0.9) 08/21/22 10:39 Eos # (Auto) 0.4 10^3/uL (0.0-0.8) 08/21/22 10:39 Baso # (Auto) 0.0 10^3/uL (0.0-0.1) 08/21/22 10:39 Nucleated RBC % (auto) 0 % 08/21/22 10:39 Nucleated RBCs # 0.0 /100WBC 08/21/22 10:39 Sodium 130 mmol/L (136-145) L 08/21/22 10:39 Potassium 4.3 mmol/L (3.5-5.1) 08/21/22 10:39 Chloride 94 mmol/L (98-107) L 08/21/22 10:39 Carbon Dioxide 26 mmol/L (22-29) 08/21/22 10:39 Anion Gap 14.3 (5-19) 08/21/22 10:39 BUN 11 mg/dL (8-23) 08/21/22 10:39 Creatinine 0.6 mg/dL (0.7-1.2) L 08/21/22 10:39 GFR Calculation Not Reportable 08/21/22 10:39 Glucose 178 mg/dL (65-115) H 08/21/22 10:39 POC Glucose 158 mg/dL (70-110) H 08/26/22 19:56 Calculated Osmolality 274 mOsm/kg (285-295) L 08/21/22 10:39 Calcium 8.8 mg/dL (8.5-10.5) 08/21/22 10:39 Urine Color Light yellow (Yellow) 08/21/22 10:52 Urine Appearance Clear (CLEAR) 08/21/22 10:52 Urine pH 7 (5-7) 08/21/22 10:52 Ur Specific [place] 1.010 (1.005-1.030) 08/21/22 10:52 Urine Protein Neg (Negative) 08/21/22 10:52 Urine Glucose (UA) Norm (Normal) 08/21/22 10:52 Urine Ketones Negative (Negative) 08/21/22 10:52 Urine Blood Neg (Negative) 08/21/22 10:52 Urine Nitrate Negative (Negative) 08/21/22 10:52 Urine Bilirubin Neg (Negative) 08/21/22 10:52 Urine Urobilinogen Norm mg/dL (Negative) 08/21/22 10:52 Ur Leukocyte Esterase Negative (Negative) 08/21/22 10:52 Procedures Performed AICD implantation on August 26, 2022 Vitals Last Vital Signs Temp 98 F 08/26/22 23:15 Pulse 60 08/27/22 04:12 Resp 15 08/26/22 23:15 BP 122/54 08/26/22 23:15 Pulse Ox 96 08/26/22 23:15 O2 Del Method 08/26/22 20:00 O2 Flow Rate 95 02/21/23 09:55 Discharge Plan Discharge Patient Disposition: Home Condition: Stable Prescriptions: New hydrocodone-acetaminophen 5-325 mg Tablet 1 tab PO Q6H PRN (Reason: Pain (Scale Score 4-6)) Qty: 18 0RF sulfamethoxazole-trimethoprim [Bactrim DS] 800-160 mg tablet 1 tab PO BID Qty: 6 0RF Continued spironolactone 25 mg tablet 25 mg PO DAILY Qty: 90 2RF polyethylene glycol 3350 17 gram powder in packet 17 g PO DAILY PRN (Reason: constipation) metformin 1,000 mg tablet 1,000 mg PO BID Qty: 180 3RF Advair HFA 115-21 mcg/actuation HFA aerosol inhaler 2 puff inhalation BID Qty: 12 4RF Rx Instructions: administer with spacer Entresto 97-103 mg tablet 1 tab PO BID Qty: 180 3RF Hold Instructions: in [facility]- restart in July (DME) blood-glucose meter Kit See Rx Instructions .ROUTE .MEDSUPPLY Qty: 1 0RF Rx Instructions: As directed albuterol sulfate 90 mcg/actuation HFA aerosol inhaler See Rx Instructions .ROUTE .COMPLEX Qty: 18 11RF Dose Instruction: INHALE 2 PUFFS BY MOUTH EVERY 6 HOURS NEEDED FOR SHORTNESS OF BREATH Rx Instructions: INHALE 2 PUFFS BY MOUTH EVERY 6 HOURS NEEDED FOR SHORTNESS OF BREATH glimepiride 4 mg tablet 4 mg PO DAILY Qty: 90 3RF tamsulosin 0.4 mg capsule 0.4 mg PO DAILY Qty: 30 11RF atorvastatin 80 mg tablet 80 mg PO DAILY Qty: 30 9RF potassium chloride [Klor-Con 10] 10 mEq tablet extended release 10 meq PO DAILY Qty: 90 3RF metoprolol tartrate 50 mg tablet 50 mg PO BID 30 Days Qty: 60 11RF Plavix 75 mg tablet 75 mg PO DAILY Qty: 90 3RF furosemide 40 mg tablet 40 mg PO BID Rx Instructions: TAKE ONE TABLET BY MOUTH TWICE A DAY aspirin [Aspir-81] 81 mg Tablet,Delayed Release (Dr/Ec) 81 mg PO DAILY Discharge Orders: Discharge Order (Routine); Ordered 08/27/22 Ordered By: Michel Becker Referrals: Michle Becker MD [Physician] - 1 week Discharge Diet: Usual diet Discharge Activity: Limit activity as instructed Patient Instructions: Opioid Safety Activity Restrictions/Additional Instructions: May remove bandage in 2 days May begin daily showers in 3 days or clean the incision as needed with soft cloth, soap and water; dry completely afterwards. Dry incision carefully after showers. May re-cover if desired to prevent irritation from clothing. No swimming or tub baths x 2 weeks No ointments on incision Report drainage, redness, heat, increased pain, or swelling to clinic Do not raise left hand above eye level or extend reach for 2 weeks We will follow-up with Dr. Becker in his office next week. Please call prior to that time, for any concerns. Do not take Plavix for next 3 days. May resume on Thursday Discharge Attestations Time Spent in Discharge Care*: less than 30 min Specific Discharge Activities: educating patient, discussing with child support case officer/social workers/dc planners, documenting/other paperwork and evaluating patient/reviewing data Status at Discharge: Cognitive status at discharge: cognitively intact , Behavioral status at discharge: cooperative , Functional status at discharge: independent ambulation , Overall status at discharge: patient is back to baseline Quality Metrics Clinical Quality Measures [ No reported AMI, CVA or VTE this stay] Coding Level of Care Code Acute Code for Chg Ovi
[2022-08-27 07:30] VITALS: BP 122/63; PULSE 60; RESP 16; TEMP 36.6
[2022-08-27] MEDS: ceFAZolin 2,000 MG in sodium chloride 0.9% (plus) 50 ML 100 MG IV (08:07)
[2022-08-27] MEDS: pantoprazole DR 40 mg Tablet PO (08:09)
[2022-08-27] MEDS: atorvastatin 40 mg Tablet 80 MG PO (08:09)
[2022-08-27] MEDS: spironolactone 25 mg Tablet PO (08:09)
[2022-08-27] MEDS: metoprolol tartrate 50 mg Tablet PO (08:10)
[2022-08-27] MEDS: potassium chloride ER 10 mEq Tablet PO (08:10)
[2022-08-27] MEDS: FUROsemide 40 mg Tablet PO (08:10)
[2022-08-27] MEDS: tamsulosin 0.4 mg Capsule PO (08:10)
[2022-08-27] MEDS: budesonide 0.5 mg/2 mL Neb INHALATION (08:31)
[2022-08-27] MEDS: albuterol 2.5 mg/3 mL Neb INHALATION (08:35)
[2022-08-27 08:36] VITALS: PULSE 60; RESP 18; O2SAT 95
[2022-08-27 10:24] VITALS: BP 122/63; PULSE 60; RESP 18; O2SAT 95
== END 2022-08-27 10:35 | disposition home or self-care (01) ==
LOC: CSU 15:36
PROVIDERS: Admitting Provider Thoracic Surgery (Cardiothoracic Vascular Surgery); PCP Family Medicine; Visit Provider Thoracic Surgery (Cardiothoracic Vascular Surgery)
PROC: 0JH608Z Insertion of Defibrillator Generator into Chest Subcutaneous Tissue and Fascia, Open Approach (ICD-10-PCS; CPT 33249; principal; 2022-08-26 07:00)
DX: I11.0 Hypertensive heart disease with heart failure (principal); I50.22 Chronic systolic (congestive) heart failure; I25.5 Ischemic cardiomyopathy; I25.2 Old myocardial infarction; J44.9 Chronic obstructive pulmonary disease, unspecified; I25.10 Atherosclerotic heart disease of native coronary artery without angina pectoris; Z95.5 Presence of coronary angioplasty implant and graft; Z79.82 Long term (current) use of aspirin; E78.5 Hyperlipidemia, unspecified; Z95.0 Presence of cardiac pacemaker
CPT/HCPCS: 33240; 36415; 36416; 71045; 76000; 80048; 81003; 82962; 85025; 93005; 94640; 96372; C1721; C1777; G0378; J0690; J1815; J2704; J3010; J7030; J7613; J7626

== ENCOUNTER → 2022-09-03 08:37 | Outpatient (BNVA) | payer MEDICARE, SELFPAY | PROVIDERS: PCP Family Medicine; Visit Provider Nurse Practitioner Family | DX: Z95.810 Presence of automatic (implantable) cardiac defibrillator (principal) | CPT/HCPCS: 93228; 93289; 99024; 99213; 99214 ==

== ENCOUNTER → 2022-09-10 09:49 | Outpatient (BNVA) | payer MEDICARE, SELFPAY | PROVIDERS: PCP Family Medicine; Visit Provider Family Medicine | DX: E11.8 Type 2 diabetes mellitus with unspecified complications (principal); E78.5 Hyperlipidemia, unspecified; R11.2 Nausea with vomiting, unspecified | CPT/HCPCS: 80053; 83036; 85025 ==

== ENCOUNTER 2022-09-14 03:32 | Observation (INO) | payer MEDICARE, SELFPAY ==
[2022-09-14] VITALS (70 sets, daily range): BP systolic 83–137; BP diastolic 50–84; PULSE 69–124; RESP 9–24; TEMP 36.4–37.2; O2SAT 81–100; BMI 29.6; BMI 28.0
--- NOTE | 2022-09-14 03:44 | W.ED.GIBLEED ---
HPI - GI Bleed General: Chief complaint: Nausea/Vomiting/Diarrhea Stated complaint: throwing up blood Time Seen by Provider: 09/14/22 03:34 Source: patient Mode of arrival: ambulatory Limitations: no limitations History of Present Illness: 72-year-old male states that over the last 2 days has been vomiting blood he states he been told in the past that he needs to have a scope he states its been bright red and dark in nature he has not noticed any blood in his stool but he states he does not really pay attention he is not on any blood thinners he had some mild abdominal cramping. Associated symptoms: Reports abdominal pain, nausea and vomiting; Denies chills, easy bruising, fever(s), headache(s) or rash Review of Systems Const: Denies: fever(s), chills, body aches or change in appetite Eyes: Denies: blurry vision or eye discomfort ENMT: Denies: throat pain or dental pain Card: Denies: chest pain Resp: Denies: dyspnea GI: Reports: abdominal pain, nausea, vomiting and hematemesis : Denies: dysuria Musc: Denies: neck pain or back pain Skin/Breast: Denies: rash Neuro: Denies: headache(s) Psych: Denies: depression Mark/Lymph: Denies: easy bruising All/Imm: Denies: urticaria PFSH ED PFSH: Medical History Acute on chronic diastolic (congestive) heart failure CAD (coronary artery disease) Had PCI in 2017 following a heart attack CHF exacerbation COPD (chronic obstructive pulmonary disease) Dyslipidemia (high LDL; low HDL) Essential hypertension Non-ST elevation CA (NSTEMI) Pacemaker Pneumonia Type 2 diabetes mellitus with complication, without long-term current use of insulin Surgical History AICD (automatic cardioverter/defibrillator) present History of PTCA S/P placement of cardiac pacemaker Family History Mother Cancer Family/Other Diabetes Father Lung disease Denies family history of CAD (coronary artery disease) Clotting disorder Dementia Chronic kidney disease (CKD) Suicide Anesthesia complication Bleeding disorder Stroke Social History Smoking and tobacco status: never smoked Alcohol intake: current Alcohol intake frequency: few times a week Physical Exam Const: COMMON NORMALS: patient oriented x3 HENMT: COMMON NORMALS: normocephalic and atraumatic HEAD & SCALP: normocephalic and atraumatic Eye: COMMON NORMALS: Equal, round and reactive pupils present and EOMs intact bilaterally PUPIL: Yes Equal, round and reactive pupils present Neck/C-Spine: COMMON NORMALS: full ROM and supple Chest: COMMONS NORMALS: normal inspection of the chest and normal palpation of entire chest wall Resp: COMMON NORMALS: normal respiratory effort, No retractions, No use of accessory muscles and clear to auscultation bilaterally AUSCULTATION: clear to auscultation bilaterally Cardio: COMMON NORMALS: regular rate, regular rhythm and No murmurs present (Cardio) RATE: regular rate RHYTHM: regular rhythm GI: COMMON NORMALS: Normal to inspection, nondistended, normoactive bowel sounds present, Soft to palpation, non-tender and no masses PALPATION: Yes Soft to palpation RECTAL EXAM: Yes visual inspection normal and Yes heme positive stool Extremity: COMMON NORMALS: normal to inspection and full ROM Neuro: COMMON NORMALS: patient oriented x3, moves all extremities and no focal motor deficits Psych: COMMON NORMALS: mental status grossly normal, Normal thought process present and cooperative THOUGHT PROCESS: Normal thought process present Skin: COMMON NORMALS: no rashes or lesions noted and no wounds GENERAL SKIN EXAM: no rashes or lesions noted Course Vital Signs: Vital signs: Vital Signs Temperature 97.6 F 09/14/22 03:38 Pulse Rate 79 09/14/22 04:47 Respiratory Rate 15 09/14/22 04:47 Blood Pressure 91/52 09/14/22 04:47 Pulse Oximetry 98 09/14/22 04:47 MDM - GI Bleed Medical Decision Making Patient presents here with a upper GI bleed patient given 1 unit of blood here his hemoglobin is 9.2 has mild hypotension I spoke to surgeon and hospitalist and will admit to the ICU. Lab Data 09/14/22 03:45 09/14/22 03:45 Radiology Impressions Abdomen/Pelvis CT 09/14/22 03:48 IMPRESSION: 1. High-density material in the gastric fundus could reflect ingested material, though a site of bleeding is not excluded given the patient history. 2. There is a 4 mm right lower lobe pulmonary nodule. For patients at low risk (minimal or absent history of smoking and of other known risk factors), no routine follow-up is indicated. For patients at high risk (history of smoking or of other known risk factors), consider optional CT Chest at 12 months. (Reference: Danuta) REFERENCES: Danuta Bonner, et al. Guidelines for Management of Incidental Pulmonary Nodules Detected on CT Images: From the Fleischner Society 2017. Radiology. 2017;284(1):228-243. Laboratory Results WBC 18.6 10^3/uL (4.0-10.0) H 09/14/22 03:45 RBC 2.86 10^6/uL (4.1-5.3) L 09/14/22 03:45 Hgb 9.6 g/dL (11.7-16.6) L 09/14/22 03:45 Hct 29.1 % (42.0-52.0) L 09/14/22 03:45 MCV 101.7 fl (80-94) H 09/14/22 03:45 MCH 33.6 pg (28.0-34.0) 09/14/22 03:45 MCHC 33.0 g/dL (30.0-36.0) 09/14/22 03:45 RDW 12.8 % (12.1-15.1) 09/14/22 03:45 Plt Count 287 10^3/cmm (130-400) 09/14/22 03:45 MPV 10.9 fL (7.4-10.4) H 09/14/22 03:45 Neut % (Auto) 85.7 % 09/14/22 03:45 Lymph % (Auto) 7.5 % 09/14/22 03:45 [place] % (Auto) 5.4 % 09/14/22 03:45 Eos % (Auto) 0.4 % 09/14/22 03:45 Baso % (Auto) 0.2 % 09/14/22 03:45 Neut # (Auto) 15.97 10^3/uL (1.8-7.7) H 09/14/22 03:45 Lymph # (Auto) 1.4 10^3/uL (0.8-4.8) 09/14/22 03:45 [place] # (Auto) 1.0 10^3/uL (0.2-0.9) H 09/14/22 03:45 Eos # (Auto) 0.1 10^3/uL (0.0-0.8) 09/14/22 03:45 Baso # (Auto) 0.0 10^3/uL (0.0-0.1) 09/14/22 03:45 Nucleated RBC % (auto) 0 % 09/14/22 03:45 Nucleated RBCs # 0.0 /100WBC 09/14/22 03:45 PT 14.50 SECONDS (12.1-14.9) 09/14/22 03:45 INR 1.09 (0.8-1.2) 09/14/22 03:45 Sodium 130 mmol/L (136-145) L 09/14/22 03:45 Potassium 4.6 mmol/L (3.5-5.1) 09/14/22 03:45 Chloride 93 mmol/L (98-107) L 09/14/22 03:45 Carbon Dioxide 21 mmol/L (22-29) L 09/14/22 03:45 Anion Gap 20.6 (5-19) H 09/14/22 03:45 BUN 46 mg/dL (8-23) H 09/14/22 03:45 Creatinine 0.8 mg/dL (0.7-1.2) 09/14/22 03:45 GFR Calculation Not Reportable 09/14/22 03:45 Glucose 238 mg/dL (65-115) H 09/14/22 03:45 Calculated Osmolality 290 mOsm/kg (285-295) 09/14/22 03:45 Calcium 8.8 mg/dL (8.5-10.5) 09/14/22 03:45 Total Bilirubin 0.5 mg/dL (0.15-1.2) 09/14/22 03:45 AST 11 U/L (0-40) 09/14/22 03:45 ALT 9 U/L (0-41) 09/14/22 03:45 Alkaline Phosphatase 46 U/L (40-130) 09/14/22 03:45 Total Protein 5.6 g/dL (6.6-8.7) L 09/14/22 03:45 Albumin 3.7 g/dL (3.5-5.2) 09/14/22 03:45 Globulin 1.9 g/dL (1.3-4.6) 09/14/22 03:45 Lipase 13 U/L (13-60) 09/14/22 03:45 Critical Care Time Critical Care Time: Critical Care Time: Yes Total Critical Care Time: 40 Attestation: The high probability of a clinically significant, sudden or life threatening deterioration of the patient's gi system(s) required my full and direct attention, intervention and personal management. The critical care time is as shown. This time is in addition to time spent performing any reported procedures but includes the following: [x] Data and vital sign review and interpretation [x] Patient assessment, examination and intervention [x] Documentation [x] Medication orders and management Discharge Plan Discharge Condition: Stable Prescriptions: No Action spironolactone 25 mg tablet 25 mg PO DAILY Qty: 90 2RF polyethylene glycol 3350 17 gram powder in packet 17 g PO DAILY PRN (Reason: constipation) Advair HFA 115-21 mcg/actuation HFA aerosol inhaler 2 puff inhalation BID Qty: 12 4RF Rx Instructions: administer with spacer Entresto 97-103 mg tablet 1 tab PO BID Qty: 180 3RF Hold Instructions: in [facility]- restart in July dicyclomine 20 mg tablet 20 mg PO TID Qty: 30 0RF (DME) blood-glucose meter Kit See Rx Instructions .ROUTE .MEDSUPPLY Qty: 1 0RF Rx Instructions: As directed albuterol sulfate 90 mcg/actuation HFA aerosol inhaler See Rx Instructions .ROUTE .COMPLEX Qty: 18 11RF Dose Instruction: INHALE 2 PUFFS BY MOUTH EVERY 6 HOURS NEEDED FOR SHORTNESS OF BREATH Rx Instructions: INHALE 2 PUFFS BY MOUTH EVERY 6 HOURS NEEDED FOR SHORTNESS OF BREATH glimepiride 4 mg tablet 4 mg PO DAILY Qty: 90 3RF tamsulosin 0.4 mg capsule 0.4 mg PO DAILY Qty: 30 11RF atorvastatin 80 mg tablet 80 mg PO DAILY Qty: 30 9RF potassium chloride [Klor-Con 10] 10 mEq tablet extended release 10 meq PO DAILY Qty: 90 3RF metoprolol tartrate 50 mg tablet 50 mg PO BID 30 Days Qty: 60 11RF Plavix 75 mg tablet 75 mg PO DAILY Qty: 90 3RF metformin 1,000 mg tablet 1,000 mg PO BID Qty: 180 3RF furosemide 40 mg tablet 40 mg PO BID Rx Instructions: TAKE ONE TABLET BY MOUTH TWICE A DAY aspirin 81 mg Tablet,Delayed Release (Dr/Ec) 81 mg PO DAILY Referrals: Kuldip Richter DO [Primary Care Provider] - Coding 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
--- NOTE | 2022-09-14 03:48 | CTR_ITS ---
PROCEDURE INFORMATION: Exam: CT Abdomen And Pelvis With Contrast Exam date and time: 09/14/2022 3:07 AM Age: 72 years old Clinical indication: Patient HX: Vomiting blood; Additional info: Abd pain TECHNIQUE: Imaging protocol: Computed tomography of the abdomen and pelvis with contrast. Radiation optimization: All CT scans at this facility use at least one of these dose optimization techniques: automated exposure control; mA and/or kV adjustment per patient size (includes targeted exams where dose is matched to clinical indication); or iterative reconstruction. Contrast material: OMNI 350; Contrast volume: 100 ml; Contrast route: INTRAVENOUS (IV); REPORTING DATA: Count of CT and Cardiac NM exams in prior 12 months: This patient has received 0 known CTs and 0 known cardiac nuclear medicine studies in the 12 months prior to the current study. COMPARISON: CR XR chest 1V portable [id number] 08/26/2022 9:50 AM RADIATION DOSE METRICS: Total DLP (mGy-cm): 726.24 FINDINGS: Lungs: There is a 4 mm right lower lobe pulmonary nodule. Liver: Normal. No mass. Gallbladder and bile ducts: Normal. No calcified stones. No ductal dilation. Pancreas: Normal. No ductal dilation. Spleen: Small low-density lesion in the spleen is nonspecific. Adrenal glands: Normal. No mass. Kidneys and ureters: Normal. No hydronephrosis. Stomach and bowel: High-density material in the gastric fundus is seen on series 3, image 16. No obstruction. No mucosal thickening. Appendix: No evidence of appendicitis. Intraperitoneal space: Unremarkable. No free air. No significant fluid collection. Vasculature: Moderate burden of atherosclerotic plaque in the abdominal aorta and branch vessels. No aneurysm. Lymph nodes: Unremarkable. No enlarged lymph nodes. Urinary bladder: Unremarkable as visualized. Reproductive: Prostatomegaly. Bones/joints: Unremarkable. No acute fracture. Soft tissues: Fatty expansion of the left inguinal canal. CT/CT abdomen pelvis w con* [id number] IMPRESSION: 1. High-density material in the gastric fundus could reflect ingested material, though a site of bleeding is not excluded given the patient history. 2. There is a 4 mm right lower lobe pulmonary nodule. For patients at low risk (minimal or absent history of smoking and of other known risk factors), no routine follow-up is indicated. For patients at high risk (history of smoking or of other known risk factors), consider optional CT Chest at 12 months. (Reference: Danuta) REFERENCES: Danuta Bonner, et al. Guidelines for Management of Incidental Pulmonary Nodules Detected on CT Images: From the Fleischner Society 2017. Radiology. 2017;284(1):228-243.
[2022-09-14] MEDS: ondansetron 2 mg/ML SDV 2 mL 4 MG IVP (03:54)
[2022-09-14] MEDS: pantoprazole 40 mg SDV 80 MG IVP (03:54)
[2022-09-14 04:01] LABS: Basophils % 0.2 %; Eosinophils # 0.1 10^3/uL (0.0-0.8); Eosinophils % 0.4 %; Hematocrit 29.1 % (42.0-52.0); Hemoglobin 9.6 g/dL (11.7-16.6); Lymphocytes # 1.4 10^3/uL (0.8-4.8); Lymphocytes % 7.5 %; Mean Corpuscular Hemoglobin 33.6 pg (28.0-34.0); Mean Corpuscular Volume 101.7 fl (80-94); Mean Platelet Volume 10.9 fL (7.4-10.4); Monocytes % 5.4 %; Neutrophils # 15.97 10^3/uL (1.8-7.7); Neutrophils % 85.7 %; Nucleated Red Blood Cells % 0 %; Platelet Count 287 10^3/cmm (130-400); Red Blood Count 2.86 10^6/uL (4.1-5.3); Red Cell Distribution Width 12.8 % (12.1-15.1); White Blood Count 18.6 10^3/uL (4.0-10.0)
[2022-09-14] MEDS: iohexol 350 mg/mL 500 mL Btl (per mL) IV (04:13)
[2022-09-14 04:14] LABS: INR 1.09 (0.8-1.2)
[2022-09-14 04:18] LABS: Alanine Aminotransferase 9 U/L (0-41); Albumin Level 3.7 g/dL (3.5-5.2); Alkaline Phosphatase 46 U/L (40-130); Anion Gap 20.6 (5-19); Aspartate Amino Transferase 11 U/L (0-40); Blood Urea Nitrogen 46 mg/dL (8-23); Calcium 8.8 mg/dL (8.5-10.5); Carbon Dioxide 21 mmol/L (22-29); Chloride 93 mmol/L (98-107); Globulin 1.9 g/dL (1.3-4.6); Glucose 238 mg/dL (65-115); Lipase 13 U/L (13-60); Osmolality Calculated 290 mOsm/kg (285-295); Potassium 4.6 mmol/L (3.5-5.1); Sodium 130 mmol/L (136-145); Total Bilirubin 0.5 mg/dL (0.15-1.2); Total Protein 5.6 g/dL (6.6-8.7)
--- NOTE | 2022-09-14 05:00 | P.HP_ITS ---
Providers/Chief Complaint Admitting Physician: Paty Reynolds MD Primary Care Provider: Kuldip Richter DO Chief Complaint: throwing up blood History of Present Illness Gustavo Mcgill is a 72 year old male with PMH CAD, CHF, ischemic cardiomyoppathy, last known EF 26%, s/p AICD, presenting with 3 days of hematemesis. He states he started vomiting food and mucus mixed with blood 3 days ago, frequency and amount of blood has been increasing. His estimates he has thrown up 3 c ups of blood alone. Denies any past h/o GI bleeding. FOBT is positive in ER. HE has not noticed any rectal bleeding at home. LAst colonoscopy was 4 years ago, reportedly normal per patient. He is on DAPT with ASA, Plavix. Review of PCP notes shows patient has been c/o nausea and acid reflux over past several months. No h/o NSAID use. Review of Systems General: Reports: 10 or more systems reviewed and unremarkable except in HPI and below Const: Denies: fever(s), chills or body aches Eyes: Denies: change in vision, blurry vision or photophobia ENMT: Reports: hoarseness; Denies: throat pain, enlarged tonsils, odynophagia or nasal congestion Card: Denies: chest pain, palpitations, irregular heart rhythm, edema, swelling of feet/ankles, lightheadedness, pre-syncope, dyspnea on exertion or o rthopnea Resp: Denies: dyspnea, productive cough, non-productive cough, wheezing, stridor, pain on inspiration, change in phlegm color, hemoptysis or chest congestion GI: Denies: abdominal pain, nausea, vomiting, hematemesis, coffee ground emesis, dysphagia, heartburn, diarrhea, constipation, GI cramping, change in stool character, hematochezia or melena : Denies: flank pain, dysuria, urinary frequency, urinary urgency, urinary hesitancy or hematuria Musc: Denies: neck pain, back pain, extremity pain, joint swelling, joint warmth or deformity Neuro: Denies: headache(s), numbness in extremities, weakness in extremities, sensory changes, difficulty walking, frequent falls, dizziness, vertigo, behavioral changes, Slurred speech present or seizure-like activity Psych: Denies: anxiety, depression, suicidal ideation or homicidal ideation Endo: Denies: polyuria, polydipsia, tired all the time, cold intolerance or hot flashes Mark/Lymph: Denies: easy bruising or easy bleeding Medications/Allergies Home Medications Medication Instructions Recorded Confirmed Last Taken Type blood-glucose meter #1 ea 02/23/20 09/10/22 Unknown Rx spironolactone 25 mg tablet 25 mg PO DAILY #90 tabs 09/13/20 09/10/22 08/25/22 Rx polyethylene glycol 3350 17 gram 17 g PO DAILY PRN constipation 10/31/20 09/10/22 Unknown History oral powder packet albuterol sulfate 90 mcg/actuation See Rx Instructions .Route 09/18/21 09/10/22 08/25/22 Rx aerosol inhaler .COMPLEX #18 grams aspirin 81 mg tablet,delayed 81 mg PO DAILY 09/30/21 09/10/22 08/21/22 History release fluticasone propionate 115 2 puff inhalation BID #12 grams 10/02/21 09/10/22 05/23/22 Rx mcg-salmeterol 21 mcg/actuation HFA inhaler (Advair HFA) glimepiride 4 mg tablet 4 mg PO DAILY #90 tabs 10/02/21 09/10/22 08/25/22 Rx tamsulosin 0.4 mg capsule 0.4 mg PO DAILY #30 caps 01/09/22 09/10/22 08/25/22 Rx atorvastatin 80 mg tablet 80 mg PO DAILY #30 tabs 02/13/22 09/10/22 08/25/22 Rx potassium chloride 10 mEq 10 meq PO DAILY #90 tabs 02/28/22 09/10/22 08/25/22 Rx tablet,extended release (Klor-Con) metoprolol tartrate 50 mg tablet 50 mg PO BID 30 days #60 tabs 04/17/22 09/10/22 08/26/22 Rx sacubitril 97 mg-valsartan 103 mg 1 tab PO BID #180 tabs 07/09/22 09/10/22 08/25/22 Rx tablet (Entresto) clopidogrel 75 mg tablet (Plavix) 75 mg PO DAILY #90 tabs 07/31/22 09/10/22 Rx furosemide 40 mg tablet 40 mg PO BID 08/21/22 09/10/22 08/25/22 History dicyclomine 20 mg tablet 20 mg PO TID #30 tabs 09/10/22 09/10/22 Unknown Rx metformin 1,000 mg tablet 1,000 mg PO BID #180 tabs 09/11/22 Unknown Rx Allergies Allergy/AdvReac Type Severity Reaction Status Date / Time No Known Allergies Allergy Verified 09/10/22 09:40 PFSH Acute PFSH: Medical History Acute on chronic diastolic (congestive) heart failure CAD (coronary artery disease) Had PCI in 2017 following a heart attack CHF exacerbation COPD (chronic obstructive pulmonary disease) Dyslipidemia (high LDL; low HDL) Essential hypertension Non-ST elevation [place] (NSTEMI) Pacemaker Pneumonia Type 2 diabetes mellitus with complication, without long-term current use of insulin Surgical History AICD (automatic cardioverter/defibrillator) present History of PTCA S/P placement of cardiac pacemaker Family History Mother Cancer Family/Other Diabetes Father Lung disease Denies family history of CAD (coronary artery disease) Clotting disorder Dementia Chronic kidney disease (CKD) Suicide Anesthesia complication Bleeding disorder Stroke Social History Smoking and tobacco status: never smoked Alcohol intake: current Alcohol intake frequency: few times a week Vitals/I&O/Wt Last Vital Signs Temp 97.6 F 09/14/22 03:38 Pulse 79 09/14/22 04:47 Resp 15 09/14/22 04:47 BP 91/52 09/14/22 04:47 Pulse Ox 98 09/14/22 04:47 Weight last 48 hrs Weight 88.451 kg Physical Exam Narrative: General: No acute distress, AO x3 HEENT: PERRLA, pupils bilaterally equal and reactive, pallor + Chest: Normal vesicular breath sounds, no added sounds, equal good air entry bilaterally CVS: S1-S2 regular, no murmurs, no tachycardia, no gallops, no rubs Abdomen: Soft, nontender, no organomegaly, bowel sounds present Neuro: No focal deficits, no facial deformity, AO x3, power 5/5 in all limbs Data 09/14/22 03:45 09/14/22 03:45 Other data: Radiology Impressions Abdomen/Pelvis CT 09/14/22 03:48 IMPRESSION: 1. High-density material in the gastric fundus could reflect ingested material, though a site of bleeding is not excluded given the patient history. 2. There is a 4 mm right lower lobe pulmonary nodule. For patients at low risk (minimal or absent history of smoking and of other known risk factors), no routine follow-up is indicated. For patients at high risk (history of smoking or of other known risk factors), consider optional CT Chest at 12 months. (Reference: Danuta) REFERENCES: Danuta Bonner, et al. Guidelines for Management of Incidental Pulmonary Nodules Detected on CT Images: From the Fleischner Society 2017. Radiology. 2017;284(1):228-243. Laboratory Results WBC 18.6 10^3/uL (4.0-10.0) H 09/14/22 03:45 RBC 2.86 10^6/uL (4.1-5.3) L 09/14/22 03:45 Hgb 9.6 g/dL (11.7-16.6) L 09/14/22 03:45 Hct 29.1 % (42.0-52.0) L 09/14/22 03:45 MCV 101.7 fl (80-94) H 09/14/22 03:45 MCH 33.6 pg (28.0-34.0) 09/14/22 03:45 MCHC 33.0 g/dL (30.0-36.0) 09/14/22 03:45 RDW 12.8 % (12.1-15.1) 09/14/22 03:45 Plt Count 287 10^3/cmm (130-400) 09/14/22 03:45 MPV 10.9 fL (7.4-10.4) H 09/14/22 03:45 Neut % (Auto) 85.7 % 09/14/22 03:45 Lymph % (Auto) 7.5 % 09/14/22 03:45 [place] % (Auto) 5.4 % 09/14/22 03:45 Eos % (Auto) 0.4 % 09/14/22 03:45 Baso % (Auto) 0.2 % 09/14/22 03:45 Neut # (Auto) 15.97 10^3/uL (1.8-7.7) H 09/14/22 03:45 Lymph # (Auto) 1.4 10^3/uL (0.8-4.8) 09/14/22 03:45 [place] # (Auto) 1.0 10^3/uL (0.2-0.9) H 09/14/22 03:45 Eos # (Auto) 0.1 10^3/uL (0.0-0.8) 09/14/22 03:45 Baso # (Auto) 0.0 10^3/uL (0.0-0.1) 09/14/22 03:45 Nucleated RBC % (auto) 0 % 09/14/22 03:45 Nucleated RBCs # 0.0 /100WBC 09/14/22 03:45 PT 14.50 SECONDS (12.1-14.9) 09/14/22 03:45 INR 1.09 (0.8-1.2) 09/14/22 03:45 Sodium 130 mmol/L (136-145) L 09/14/22 03:45 Potassium 4.6 mmol/L (3.5-5.1) 09/14/22 03:45 Chloride 93 mmol/L (98-107) L 09/14/22 03:45 Carbon Dioxide 21 mmol/L (22-29) L 09/14/22 03:45 Anion Gap 20.6 (5-19) H 09/14/22 03:45 BUN 46 mg/dL (8-23) H 09/14/22 03:45 Creatinine 0.8 mg/dL (0.7-1.2) 09/14/22 03:45 GFR Calculation Not Reportable 09/14/22 03:45 Glucose 238 mg/dL (65-115) H 09/14/22 03:45 Calculated Osmolality 290 mOsm/kg (285-295) 09/14/22 03:45 Calcium 8.8 mg/dL (8.5-10.5) 09/14/22 03:45 Total Bilirubin 0.5 mg/dL (0.15-1.2) 09/14/22 03:45 AST 11 U/L (0-40) 09/14/22 03:45 ALT 9 U/L (0-41) 09/14/22 03:45 Alkaline Phosphatase 46 U/L (40-130) 09/14/22 03:45 Total Protein 5.6 g/dL (6.6-8.7) L 09/14/22 03:45 Albumin 3.7 g/dL (3.5-5.2) 09/14/22 03:45 Globulin 1.9 g/dL (1.3-4.6) 09/14/22 03:45 Lipase 13 U/L (13-60) 09/14/22 03:45 A&P Assessment and plan (1) UGI bleed: Multiple episodes of hematemesis over 3 days High-density material in the gastric fundus on CT abdomen which may be blood NPO Started on protonix 8mg /hr infusion in the ER Hb currently at 9.6 from 12.3 four days ago. Ordered for 1 PRBC in ER due to hemodynamic instability SBP 86-96 mmHg , monitor closely in ICU NS 500 cc bolus now, careful IVF use given systolic HF with EF 26% Surgery consult for UGIE (2) CHF (congestive heart failure): Chronic systolic CHF with EF 26% currently compensated Hold home doses of Entresto, aldactone, lasix , metoprolol for now given hypotension (3) AICD (automatic cardioverter/defibrillator) present: Attestations Medical Necessity Statement*: > 2 midnight admission is anticipated for above care Coding Level of Care Code Critical Care >/= 30 minutes Diagnoses UGI bleed K92.2 CHF (congestive heart failure) I50.9 AICD (automatic cardioverter/defibrillator) present Z95.810
[2022-09-14] MEDS: sodium chloride 0.9% 500 ML 999 ML IV (05:11)
[2022-09-14] MEDS: pantoprazole 40 MG in sodium chloride 0.9% (plus) 100 ML 20 MG IV ×2 (05:41→11:10)
--- NOTE | 2022-09-14 05:52 | ANES.PREANE2 ---
Pre-Anesthetic Assessment Height/Weight: Height 1.73 m Weight 88.451 kg Temp Pulse Resp BP Pulse Ox 97.6 F 78 16 90/53 99 09/14/22 03:38 09/14/22 05:18 09/14/22 05:18 09/14/22 05:18 09/14/22 05:18 Preop Diagnosis: congestive heart failure EGD Familial anesthetic complications: None Was Beta Edwige taken within 24 hours: N/A Was Clonidine taken within 24 hours: N/A Last intake: > 8hrs Social No alcohol and No tobacco Exam alert, oriented x 3, clear to auscultation bilaterally and regular rate & rhythm Airway Mallampati: Class III Dentition: chipped Pulmonary Chronic Obstructive Pulmonary Disease CV/HEM Anemia, Arrythmia, Coronary Artery Disease, Congestive Heart Failure, Hypertension and Myocardial Infarction AICD Echo 2021 CONCLUSIONS ?Severe diffuse hypokinesia of the left ventricle.? LV ejection ?fraction around 26%.? Mildly dilated LV cavity .? ?Normal right ventricular size and ejection fraction.? Somewhat ?dyskinetic RV apex. ?Thickened aortic valve. Trace to mild aortic valve ?regurgitation. ?Mildly increased left atrial size. ?The PA pressure was not calculated ?There is no pericardial effusion. ?There are no intracardiac masses. ?No similar previous studies are available for comparison Anesthetic Plan ASA status: 4E Anesthesia: General Other: vomiting blood ( a lot ) Risk of > 500 ml blood loss (7ml/kg in children): No Medications/Allergies Home Medications Medication Instructions Recorded Confirmed Last Taken Type blood-glucose meter #1 ea 02/23/20 09/10/22 Unknown Rx spironolactone 25 mg tablet 25 mg PO DAILY #90 tabs 09/13/20 09/10/22 08/25/22 Rx polyethylene glycol 3350 17 gram 17 g PO DAILY PRN constipation 10/31/20 09/10/22 Unknown History oral powder packet albuterol sulfate 90 mcg/actuation See Rx Instructions .Route 09/18/21 09/10/22 08/25/22 Rx aerosol inhaler .COMPLEX #18 grams aspirin 81 mg tablet,delayed 81 mg PO DAILY 09/30/21 09/10/22 08/21/22 History release fluticasone propionate 115 2 puff inhalation BID #12 grams 10/02/21 09/10/22 05/23/22 Rx mcg-salmeterol 21 mcg/actuation HFA inhaler (Advair HFA) glimepiride 4 mg tablet 4 mg PO DAILY #90 tabs 10/02/21 09/10/22 08/25/22 Rx tamsulosin 0.4 mg capsule 0.4 mg PO DAILY #30 caps 01/09/22 09/10/22 08/25/22 Rx atorvastatin 80 mg tablet 80 mg PO DAILY #30 tabs 02/13/22 09/10/22 08/25/22 Rx potassium chloride 10 mEq 10 meq PO DAILY #90 tabs 02/28/22 09/10/22 08/25/22 Rx tablet,extended release (Klor-Con) metoprolol tartrate 50 mg tablet 50 mg PO BID 30 days #60 tabs 04/17/22 09/10/22 08/26/22 Rx sacubitril 97 mg-valsartan 103 mg 1 tab PO BID #180 tabs 07/09/22 09/10/22 08/25/22 Rx tablet (Entresto) clopidogrel 75 mg tablet (Plavix) 75 mg PO DAILY #90 tabs 07/31/22 09/10/22 08/21/22 Rx furosemide 40 mg tablet 40 mg PO BID 08/21/22 09/10/22 08/25/22 History dicyclomine 20 mg tablet 20 mg PO TID #30 tabs 09/10/22 09/10/22 Unknown Rx metformin 1,000 mg tablet 1,000 mg PO BID #180 tabs 09/11/22 Unknown Rx Allergies Allergy/AdvReac Type Severity Reaction Status Date / Time No Known Allergies Allergy Verified 09/10/22 09:40 Current Medications Generic Name Dose Route Start Last Admin Trade Name Freq PRN Reason Stop Dose Admin Pantoprazole Sodium 40 mg/ 100 mls @ 20 mls/hr 09/14/22 03:45 09/14/22 05:41 Sodium Chloride IV 8 mg/hr .Q5H TIM 20 mls/hr Administration 8 MG/HR PFSH Anesthesia Medical History Acute on chronic diastolic (congestive) heart failure CAD (coronary artery disease) Had PCI in 2017 following a heart attack CHF exacerbation COPD (chronic obstructive pulmonary disease) Dyslipidemia (high LDL; low HDL) Essential hypertension Non-ST elevation [place] (NSTEMI) Pacemaker Pneumonia Type 2 diabetes mellitus with complication, without long-term current use of insulin Surgical History AICD (automatic cardioverter/defibrillator) present History of PTCA S/P placement of cardiac pacemaker Family History Mother Cancer Family/Other Diabetes Father Lung disease Denies family history of CAD (coronary artery disease) Clotting disorder Dementia Chronic kidney disease (CKD) Suicide Anesthesia complication Bleeding disorder Stroke Social History Smoking and tobacco status: never smoked Alcohol intake: current Alcohol intake frequency: few times a week Data Anesthesia 09/14/22 03:45 09/14/22 03:45 Short CBC 09/14/22 Range/Units 03:45 WBC 18.6 H (4.0-10.0) 10^3/uL Hgb 9.6 L (11.7-16.6) g/dL Hct 29.1 L (42.0-52.0) % MCV 101.7 H (80-94) fl Plt Count 287 (130-400) 10^3/cmm Neut % (Auto) 85.7 % Neut # (Auto) 15.97 H (1.8-7.7) 10^3/uL BMP 09/14/22 03:45 Sodium 130 L Potassium 4.6 Chloride 93 L Carbon Dioxide 21 L BUN 46 H Creatinine 0.8 Glucose 238 H Calcium 8.8 Liver Function 09/14/22 Range/Units 03:45 Total Bilirubin 0.5 (0.15-1.2) mg/dL AST 11 (0-40) U/L ALT 9 (0-41) U/L Alkaline Phosphatase 46 (40-130) U/L Albumin 3.7 (3.5-5.2) g/dL Coags 09/14/22 03:45 PT 14.50 INR 1.09 Cardiac Studies: Echocardiogram Limited Views 02/14/22 Echocardiogram Ultrasound 09/04/20
--- NOTE | 2022-09-14 08:00 | PC.NURSE ---
Transfer Note Patient transferred to ICU from ER via stretcher. Handoff received from VANIA Maldonado. Patient oriented to environment and equipment. Covering service notified. Orders reviewed and will continue to monitor. Family and/or client service representative notified. Upon arrival to unit patient is alert & oriented x4, no wounds or skin issues noted at this time. Patient belongings placed at bedside which includes hat, shirt, shoes and jacket.
[2022-09-14 08:35] LABS: Glucose Point of Care 193 mg/dL (70-110)
[2022-09-14] MEDS: insulin lispro 100 unit/1 mL SUBCUT ×2 (08:52→13:56)
[2022-09-14] MEDS: atorvastatin 40 mg Tablet 80 MG PO (08:54)
[2022-09-14] MEDS: sucralfate 1 gm Tablet PO (08:54)
[2022-09-14] MEDS: midodrine 5 mg TABLET 10 MG PO (09:11)
[2022-09-14] MEDS: octreotide 100 mcg/mL SDV 50 MCG IVP (09:11)
--- NOTE | 2022-09-14 10:25 | ECG_ITS ---
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 Measurements Intervals [place] Rate: 84 P: 60 UT: 179 QRS: -84 QRSD: 229 T: 92 QT: 470 QTc: 558 Interpretive Statements ELECTRONIC VENTRICULAR PACEMAKER ABNORMAL RHYTHM ECG Compared to ECG 08/21/2022 10:53:21 Atrial-paced complex(es) or rhythm no longer present Electronically Signed On 09-14-2022 19:40:23 CDT by Ambar Prince M.D. [id number]
--- NOTE | 2022-09-14 10:50 | ECG_ITS ---
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 Measurements Intervals [place] Rate: 76 P: 56 DC: 173 QRS: -88 QRSD: 229 T: 95 QT: 482 QTc: 543 Interpretive Statements ELECTRONIC VENTRICULAR PACEMAKER ABNORMAL RHYTHM ECG Compared to ECG 09/14/2022 10:25:09 No significant changes Electronically Signed On 09-14-2022 23:21:37 CDT by Ambar Prince M.D. [email or web address]
[2022-09-14 10:57] LABS: Anion Gap 19.6 (5-19); Blood Urea Nitrogen 46 mg/dL (8-23); Calcium 8.7 mg/dL (8.5-10.5); Carbon Dioxide 22 mmol/L (22-29); Chloride 98 mmol/L (98-107); Creatinine Clr Calc Pharmacy 86.6226; Glucose 198 mg/dL (65-115); Lactic Sepsis W/Reflex 3.1 mmol/L (0.5-2.2); Osmolality Calculated 297 mOsm/kg (285-295); Potassium 4.6 mmol/L (3.5-5.1); Sodium 135 mmol/L (136-145)
[2022-09-14 10:58] LABS: Troponin(5th) Baseline 46 ng/L (0-15)
--- NOTE | 2022-09-14 11:16 | PM.TDS ---
Transfer Summary Providers Date of Admission: 09/14/22 04:45 Date of Discharge/Transfer: 09/14/22 Attending Provider at Admission: Paty Reynolds MD Attending Provider at Transfer: Jose Sparks MD Primary Care Provider: Kuldip Richter DO Transfer Plans: Anticipated date of transfer: 09/14/22. Diagnoses at Discharge Discharge Diagnosis (1) UGI bleed: Status: Acute (2) CHF (congestive heart failure): Status: Acute (3) AICD (automatic cardioverter/defibrillator) present: Status: Acute (4) Hemorrhagic shock: Status: Acute (5) Acute anemia: Status: Acute (6) Lactic acidosis: Status: Acute (7) Goals of care, counseling/discussion: Status: Acute (8) Type 2 diabetes mellitus: Status: Acute Reason for Visit Reason for Visit throwing up blood Hospital Course Hospital Course Gustavo Mcgill is a 72 year old male with PMH CAD, CHF, ischemic cardiomyoppathy, last known EF 26%, s/p AICD,? presenting with 3 days of hematemesis. He states he started vomiting food and mucus mixed with blood 3 days ago, frequency and amount of blood has been increasing. His estimates he has thrown up 3 cups of blood alone. Denies any past h/o GI bleeding. FOBT is positive in ER. HE has not noticed any rectal bleeding at home. LAst colonoscopy was 4 years ago, reportedly normal per patient. He is on DAPT with ASA, Plavix. Review of PCP notes shows patient has been c/o nausea and acid reflux over past several months. No h/o NSAID use.? Patient was admitted to [facility] for upper GI bleed, hemorrhagic shock, lactic acidosis on aspirin and Plavix, received 2 units PRBC 1 unit FFP,'s had soft blood pressures, but remained normotensive, transferred to [facility] for urgent GI evaluation with IR backup, tertiary level care evaluation atient was seen multiple times throughout the morning -Currently he does not have any bloody or black stools, no hemoptysis his FOBT was positive his blood pressures are a bit soft 90s over 60s hemodynamically stable, he has received his first unit PRBC repeat hemoglobin pending -ct abddomen and pelvis 1. ? High-density material in the gastric fundus could reflect ingested material, though a site of bleeding is not excluded given the patient history. -I spoke to general surgery, in detail, general surgery felt that patient would be better served [facility] level center, with IR and GI coverage given his EF of 25%, he has a high risk of complications, and would be better served with tertiary level care, and with the GI and IR backup -Transfer was initiated, [facility] was called, initially they had a bed and they had an ICU physician available however no IR coverage so they declined the admission -Colette was on ICU hold -[facility] has not gotten back to me as of yet -I spoke to [facility], Dr. Roman accepted, -I spoke to in detail with patient and family, discussed transfer, discussed morbidity and mortality of his GI bleed, his hemorrhagic shock they voiced understanding, all questions answered, agreed to proceed, they would like to pursue [facility] -IN detail discussed with patient, he does have a risk of morbidity and mortality during transfer, however he is currently stable, not requiring pressors, he is agreeable to transfer -Patient was transferred for concerns for hemorrhagic bleed, GI bleed, on aspirin and Plavix, need for GI, need for IR, with a past medical history of CAD stenting on aspirin Plavix, with underlying EF of 25%, lactic acid 3.1 troponin 46 BNP 1287 -I am avoiding fluids given his EF, can use Levophed as needed as needed, however not required -Repeat hemoglobin is 8.6, blood pressure is a bit soft, received another unit PRBC, currently on octreotide drip, receiving FFP -He also was complaining of bloody episode of stool, hemodynamically stable, alert oriented x3 -Currently receiving his second unit of blood, receiving FFP, last hemoglobin 8.6, alert oriented x3, vital stable, MAP greater than 65 -Patient was transferred at about 152pm -Last vital 130/67 pulse 77 respiratory 12, temperature 98.7 99% room air Physical Exam Const: COMMON NORMALS: no acute distress and patient oriented x3 Resp: COMMON NORMALS: normal respiratory effort, No retractions, No use of accessory muscles and clear to auscultation bilaterally AUSCULTATION: clear to auscultation bilaterally Cardio: COMMON NORMALS: regular rate, regular rhythm, S1 normal heart sound present and S2 normal heart sound present RATE: regular rate RHYTHM: regular rhythm HEART SOUNDS: S1 normal heart sound present and S2 normal heart sound present GI: COMMON NORMALS: Normal to inspection, nondistended, normoactive bowel sounds present and non-tender Extremity: COMMON NORMALS: no pedal edema Neuro: COMMON NORMALS: patient oriented x3 Psych: COMMON NORMALS: mental status grossly normal TS Data Studies Completed and Pending Pending at discharge Category Date Time Status ABO/Rh Type Stat Lab 09/14/22 04:30 Results Antibody Screen (PEG) Stat Lab 09/14/22 04:30 Results BNP [NT Pro B Type Natriuretic Pept] Routine Lab 09/14/22 09:55 Received Complete Blood Count w/Auto Stat Lab 09/14/22 10:56 Ordered Complete Crossmatch Stat Lab 09/14/22 04:30 Results FFP [Frozen Plasma FZ <24 1st Cont] Routine Lab 09/14/22 04:30 Results Leukocyte Reduced RBC Stat Lab 09/14/22 04:30 Results Partial Thromboplastin Time Stat Lab 09/14/22 10:43 Ordered Prothrombin Time INR Stat Lab 09/14/22 10:43 Ordered Troponin(5th) 2 Hour. Timed Lab 09/14/22 11:55 Ordered Troponin(5th) 6 hour. Timed Lab 09/14/22 15:55 Ordered Type and Screen Stat Lab 09/14/22 04:30 Results Labs from last 24 hours 09/14/22 09/14/22 09/14/22 09:55 09:55 09:55 WBC Corrected WBC RBC Hgb Hct MCV MCH MCHC RDW Plt Count MPV Gran % Neut % (Auto) Lymph % (Auto) Camp % (Auto) Eos % (Auto) Baso % (Auto) Neut # (Auto) Lymph # (Auto) Camp # (Auto) Eos # (Auto) Baso # (Auto) Absolute Gran (auto) Nucleated RBC % (auto) Nucleated RBCs # PT INR APTT Sodium 135 L Potassium 4.6 Chloride 98 Carbon Dioxide 22 Anion Gap 19.6 H BUN 46 H Creatinine 0.7 GFR Calculation Not Reportable Glucose 198 H POC Glucose Calculated Osmolality 297 H Lactic Acid 3.1 H Calcium 8.7 Total Bilirubin AST ALT Alkaline Phosphatase Troponin T Baseline 46 H NT-Pro-B Natriuret Pep Total Protein Albumin Globulin Lipase Blood Type Rho(D) Type Antibody Screen PEG Antibody Screen Crossmatch 0309/14/22 09/14/22 09:55 09:55 09:55 WBC Cancelled Corrected WBC Cancelled RBC Cancelled Hgb Cancelled Hct Cancelled MCV Cancelled MCH Cancelled MCHC Cancelled RDW Cancelled Plt Count Cancelled MPV Cancelled Gran % Cancelled Neut % (Auto) Cancelled Lymph % (Auto) Cancelled Camp % (Auto) Cancelled Eos % (Auto) Cancelled Baso % (Auto) Cancelled Neut # (Auto) Cancelled Lymph # (Auto) Cancelled Camp # (Auto) Cancelled Eos # (Auto) Cancelled Baso # (Auto) Cancelled Absolute Gran (auto) Cancelled Nucleated RBC % (auto) Cancelled Nucleated RBCs # Cancelled PT Cancelled INR Cancelled APTT Cancelled Sodium Potassium Chloride Carbon Dioxide Anion Gap BUN Creatinine GFR Calculation Glucose POC Glucose Calculated Osmolality Lactic Acid Calcium Total Bilirubin AST ALT Alkaline Phosphatase Troponin T Baseline NT-Pro-B Natriuret Pep Pending Total Protein Albumin Globulin Lipase Blood Type Rho(D) Type Antibody Screen PEG Antibody Screen Crossmatch 09/14/22 09/14/22 09/14/22 08:32 04:30 03:45 WBC Corrected WBC RBC Hgb Hct MCV MCH MCHC RDW Plt Count MPV Gran % Neut % (Auto) Lymph % (Auto) Camp % (Auto) Eos % (Auto) Baso % (Auto) Neut # (Auto) Lymph # (Auto) Camp # (Auto) Eos # (Auto) Baso # (Auto) Absolute Gran (auto) Nucleated RBC % (auto) Nucleated RBCs # PT INR APTT Sodium 130 L Potassium 4.6 Chloride 93 L Carbon Dioxide 21 L Anion Gap 20.6 H BUN 46 H Creatinine 0.8 GFR Calculation Not Reportable Glucose 238 H POC Glucose 193 H Calculated Osmolality 290 Lactic Acid Calcium 8.8 Total Bilirubin 0.5 AST 11 ALT 9 Alkaline Phosphatase 46 Troponin T Baseline NT-Pro-B Natriuret Pep Total Protein 5.6 L Albumin 3.7 Globulin 1.9 Lipase 13 Blood Type A Positive Rho(D) Type Positive Antibody Screen Not Reportable PEG Antibody Screen Negative Crossmatch See Detail 09/14/22 09/14/22 03:45 03:45 WBC 18.6 H Corrected WBC RBC 2.86 L Hgb 9.6 L Hct 29.1 L MCV 101.7 H MCH 33.6 MCHC 33.0 RDW 12.8 Plt Count 287 MPV 10.9 H Gran % Neut % (Auto) 85.7 Lymph % (Auto) 7.5 Camp % (Auto) 5.4 Eos % (Auto) 0.4 Baso % (Auto) 0.2 Neut # (Auto) 15.97 H Lymph # (Auto) 1.4 Camp # (Auto) 1.0 H Eos # (Auto) 0.1 Baso # (Auto) 0.0 Absolute Gran (auto) Nucleated RBC % (auto) 0 Nucleated RBCs # 0.0 PT 14.50 INR 1.09 APTT Sodium Potassium Chloride Carbon Dioxide Anion Gap BUN Creatinine GFR Calculation Glucose POC Glucose Calculated Osmolality Lactic Acid Calcium Total Bilirubin AST ALT Alkaline Phosphatase Troponin T Baseline NT-Pro-B Natriuret Pep Total Protein Albumin Globulin Lipase Blood Type Rho(D) Type Antibody Screen PEG Antibody Screen Crossmatch Completed Studies During Hospitalization Category Date Time Status CT abdomen pelvis w con* [id number] Stat Cat Scan 09/14/22 03:48 Completed Laboratory Last Values WBC Cancelled 09/14/22 09:55 Corrected WBC Cancelled 09/14/22 09:55 RBC Cancelled 09/14/22 09:55 Hgb Cancelled 09/14/22 09:55 Hct Cancelled 09/14/22 09:55 MCV Cancelled 09/14/22 09:55 MCH Cancelled 09/14/22 09:55 MCHC Cancelled 09/14/22 09:55 RDW Cancelled 09/14/22 09:55 Plt Count Cancelled 09/14/22 09:55 MPV Cancelled 09/14/22 09:55 Gran % Cancelled 09/14/22 09:55 Neut % (Auto) Cancelled 09/14/22 09:55 Lymph % (Auto) Cancelled 09/14/22 09:55 Camp % (Auto) Cancelled 09/14/22 09:55 Eos % (Auto) Cancelled 09/14/22 09:55 Baso % (Auto) Cancelled 09/14/22 09:55 Neut # (Auto) Cancelled 09/14/22 09:55 Lymph # (Auto) Cancelled 09/14/22 09:55 Camp # (Auto) Cancelled 09/14/22 09:55 Eos # (Auto) Cancelled 09/14/22 09:55 Baso # (Auto) Cancelled 09/14/22 09:55 Absolute Gran (auto) Cancelled 09/14/22 09:55 Nucleated RBC % (auto) Cancelled 09/14/22 09:55 Nucleated RBCs # Cancelled 09/14/22 09:55 PT Cancelled 09/14/22 09:55 INR Cancelled 09/14/22 09:55 APTT Cancelled 09/14/22 09:55 Sodium 135 mmol/L (136-145) L 09/14/22 09:55 Potassium 4.6 mmol/L (3.5-5.1) 09/14/22 09:55 Chloride 98 mmol/L (98-107) 09/14/22 09:55 Carbon Dioxide 22 mmol/L (22-29) 09/14/22 09:55 Anion Gap 19.6 (5-19) H 09/14/22 09:55 BUN 46 mg/dL (8-23) H 09/14/22 09:55 Creatinine 0.7 mg/dL (0.7-1.2) 09/14/22 09:55 GFR Calculation Not Reportable 09/14/22 09:55 Glucose 198 mg/dL (65-115) H 09/14/22 09:55 POC Glucose 193 mg/dL (70-110) H 09/14/22 08:32 Calculated Osmolality 297 mOsm/kg (285-295) H 09/14/22 09:55 Lactic Acid 3.1 mmol/L (0.5-2.2) H 09/14/22 09:55 Calcium 8.7 mg/dL (8.5-10.5) 09/14/22 09:55 Total Bilirubin 0.5 mg/dL (0.15-1.2) 09/14/22 03:45 AST 11 U/L (0-40) 09/14/22 03:45 ALT 9 U/L (0-41) 09/14/22 03:45 Alkaline Phosphatase 46 U/L (40-130) 09/14/22 03:45 Troponin T Baseline 46 ng/L (0-15) H 09/14/22 09:55 Total Protein 5.6 g/dL (6.6-8.7) L 09/14/22 03:45 Albumin 3.7 g/dL (3.5-5.2) 09/14/22 03:45 Globulin 1.9 g/dL (1.3-4.6) 09/14/22 03:45 Lipase 13 U/L (13-60) 09/14/22 03:45 Blood Type A Positive 09/14/22 04:30 Rho(D) Type Positive 09/14/22 04:30 Antibody Screen Not Reportable 09/14/22 04:30 PEG Antibody Screen Negative 09/14/22 04:30 Crossmatch See Detail 09/14/22 04:30 Radiology Impressions Abdomen/Pelvis CT 09/14/22 03:48 IMPRESSION: 1. High-density material in the gastric fundus could reflect ingested material, though a site of bleeding is not excluded given the patient history. 2. There is a 4 mm right lower lobe pulmonary nodule. For patients at low risk (minimal or absent history of smoking and of other known risk factors), no routine follow-up is indicated. For patients at high risk (history of smoking or of other known risk factors), consider optional CT Chest at 12 months. (Reference: Danuta) REFERENCES: Danuta oBnner, et al. Guidelines for Management of Incidental Pulmonary Nodules Detected on CT Images: From the Fleischner Society 2017. Radiology. 2017;284(1):228-243. Recent Clincial Data Last Vital Signs Temp 98.9 F 09/14/22 08:30 Pulse 89 09/14/22 10:05 Resp 20 H 09/14/22 10:05 BP 99/61 09/14/22 10:05 Pulse Ox 96 09/14/22 10:05 O2 Del Method 09/14/22 08:00 Vital Signs Temp Pulse Resp BP Pulse Ox O2 Del Method O2 Del Method 09/14/22 07:18 74 100 Room Air 09/14/22 10:05 89 20 H 99/61 96 09/14/22 10:00 96 21 H 137/67 98 09/14/22 09:55 98 22 H 137/67 96 09/14/22 09:50 94 18 137/67 98 09/14/22 09:45 99 21 H 137/67 98 09/14/22 09:40 92 18 137/67 96 09/14/22 09:35 95 24 H 137/67 98 09/14/22 09:30 94 23 H 118/68 97 09/14/22 09:25 124 H 20 H 118/68 99 09/14/22 09:20 102 H 19 H 118/68 09/14/22 09:15 118/68 09/14/22 09:10 118/68 09/14/22 09:05 86 14 118/68 81 L 09/14/22 09:00 88 16 106/60 100 09/14/22 08:55 82 16 106/60 100 09/14/22 08:50 82 17 106/60 09/14/22 08:45 83 22 H 106/60 98 09/14/22 08:40 86 17 106/60 99 09/14/22 08:35 87 18 106/60 95 09/14/22 08:30 98.9 F 92 17 106/69 99 09/14/22 08:25 91 15 106/69 97 09/14/22 08:20 88 16 106/69 100 09/14/22 08:15 92 17 116/50 09/14/22 08:10 97 09/14/22 08:00 Room Air 09/14/22 07:55 98.0 F 95 18 90/67 09/14/22 07:48 97.8 F 94 18 96/59 100 09/14/22 07:30 97 86/57 100 Room Air 09/14/22 07:38 97.9 F 94 22 H 85/58 98 09/14/22 06:42 82 18 99/53 99 09/14/22 05:57 69 17 103/59 100 09/14/22 05:18 78 16 90/53 99 09/14/22 04:47 79 15 91/52 98 09/14/22 03:38 97.6 F 101 H 18 92/59 95 Intake & Output/Weight 09/12/22 09/13/22 09/14/22 09/15/22 05:59 05:59 06:59 06:59 Intake Total 950 / 950 Balance 950 / 950 Weight 83.574 kg Vitals Last Vital Signs Temp 98.9 F 09/14/22 08:30 Pulse 89 09/14/22 10:05 Resp 20 H 09/14/22 10:05 BP 99/61 09/14/22 10:05 Pulse Ox 96 09/14/22 10:05 O2 Del Method 09/14/22 08:00 TS Medications Medications Albuterol Sulfate (Albuterol 2.5 Mg/3 Ml Neb) 2.5 mg INHALATION Q4H PRN PRN Reason: wheezing Stop: 09/14/22 13:01 Atorvastatin Calcium (Atorvastatin 40 Mg Tablet) 80 mg PO DAILY [facility] Last Admin: 09/14/22 08:54 Dose: 80 mg Dextrose (Dextrose 50% Syringe 50 Ml) 25 ml IVP ONCE PRN; Protocol PRN Reason: hypoglycemia protocol Dextrose (Dextrose 50% Syringe 50 Ml) 50 ml IVP PRN PRN; Protocol PRN Reason: hypoglycemia protocol Glucagon (Glucagon 1 Mg/Ml Inj 1 Ml) 1 mg IM ONCE PRN; Protocol PRN Reason: Adult Acute Hypoglycemia Prot. Pantoprazole Sodium 40 mg/ (Sodium Chloride) 100 mls @ 20 mls/hr IV .Q5H [facility] Last Admin: 09/14/22 11:10 Dose: 8 mg/hr, 20 mls/hr Dextrose (D5w) 500 mls @ 100 mls/hr IV ONCE PRN; Protocol PRN Reason: Adult Acute Hypoglycemia Prot Norepinephrine Bitartrate 4 mg (/ Dextrose) 254 mls @ 0 mls/hr IV .Q0M TIM; Protocol Insulin Human Lispro (Insulin Lispro 100 Unit/1 Ml) 0 unit SUBCUT WM&BEDTIME [facility]; Protocol Last Admin: 09/14/22 08:52 Dose: 4 unit Ondansetron HCl (Ondansetron 2 Mg/Ml Sdv 2 Ml) 4 mg IVP Q6H PRN PRN Reason: NAUSEA AND VOMITING Sodium Chloride (Sodium Chloride 0.9% 100 Ml Bag) 50 ml IV PRN PRN PRN Reason: Blood transfusion prime and flush Stop: 09/15/22 04:44 Sodium Chloride (Sodium Chloride 0.9% 100 Ml Bag) 50 ml IV PRN PRN PRN Reason: Blood transfusion prime and flush Stop: 09/15/22 09:03 Sucralfate (Sucralfate 1 Gm Tablet) 1 gm PO Q6H [facility] Last Admin: 09/14/22 08:54 Dose: 1 gm Discontinued Medications Sodium Chloride (Sodium Chloride 0.9%) 500 mls @ 999 mls/hr IV .Q31M ONE Stop: 09/14/22 05:22 Last Infusion: 09/14/22 07:18 Dose: Infused Iohexol (Iohexol 350 Mg/Ml 500 Ml Btl (Per Ml)) 0 ml IV ONCE ONE Stop: 09/14/22 04:13 Last Admin: 09/14/22 04:13 Dose: 100 ml Midodrine (Midodrine 5 Mg Tablet) 10 mg PO Q6H TIM Last Admin: 09/14/22 09:11 Dose: 10 mg Octreotide Acetate (Octreotide 100 Mcg/Ml Sdv) 50 mcg IVP ONCE ONE Stop: 09/14/22 08:56 Last Admin: 09/14/22 09:11 Dose: 50 mcg Ondansetron HCl (Ondansetron 2 Mg/Ml Sdv 2 Ml) 4 mg IVP ONCE ONE Stop: 09/14/22 03:34 Last Admin: 09/14/22 03:54 Dose: 4 mg Pantoprazole Sodium (Pantoprazole 40 Mg Sdv) 80 mg IVP ONCE ONE Stop: 09/14/22 03:44 Last Admin: 09/14/22 03:54 Dose: 80 mg Tamsulosin HCl (Tamsulosin 0.4 Mg Capsule) 0.4 mg PO DAILY TIM Allergies No Known Allergies Allergy (Verified 09/14/22 07:31) Home Medications blood-glucose meter #1 ea 02/23/20 [Rx Confirmed 09/14/22] polyethylene glycol 3350 17 gram oral powder packet 17 g PO DAILY PRN constipation 10/31/20 [History Confirmed 09/14/22] aspirin 81 mg tablet,delayed release 81 mg PO QAM 09/30/21 [History Confirmed 09/14/22] metoprolol tartrate 50 mg tablet 50 mg PO BID 30 days #60 tabs 04/17/22 [Rx Confirmed 09/14/22] sacubitril 97 mg-valsartan 103 mg tablet (Entresto) 1 tab PO BID #180 tabs 07/09/22 [Rx Confirmed 09/14/22] furosemide 40 mg tablet 40 mg PO BID 08/21/22 [History Confirmed 09/14/22] dicyclomine 20 mg tablet 20 mg PO TID #30 tabs 09/10/22 [Rx Confirmed 09/14/22] metformin 1,000 mg tablet 1,000 mg PO BID #180 tabs 09/11/22 [Rx Confirmed 09/14/22] albuterol sulfate 90 mcg/actuation aerosol inhaler 2 puff inhalation Q6H PRN Shortness Of Breath 03/12/23 [History Confirmed 09/14/22] atorvastatin 80 mg tablet 80 mg PO BEDTIME 09/14/22 [History Confirmed 09/14/22] clopidogrel 75 mg tablet 75 mg PO BEDTIME 09/14/22 [History Confirmed 09/14/22] fluticasone propionate 115 mcg-salmeterol 21 mcg/actuation HFA inhaler (Advair HFA) 2 puff inhalation BID PRN unknown 09/14/22 [History Confirmed 09/14/22] glimepiride 4 mg tablet 4 mg PO QAM 09/14/22 [History Confirmed 09/14/22] potassium chloride 10 mEq tablet,extended release 10 meq PO QAM 09/14/22 [History Confirmed 09/14/22] tamsulosin 0.4 mg capsule 0.4 mg PO QAM 09/14/22 [History Confirmed 09/14/22] Discharge Plan Discharge Patient Disposition: Xfer Other Condition: Stable Prescriptions: No Action polyethylene glycol 3350 17 gram powder in packet 17 g PO DAILY PRN (Reason: constipation) Entresto 97-103 mg tablet 1 tab PO BID Qty: 180 3RF Hold Instructions: in [facility]- restart in July dicyclomine 20 mg tablet 20 mg PO TID Qty: 30 0RF (DME) blood-glucose meter Kit See Rx Instructions .ROUTE .MEDSUPPLY Qty: 1 0RF Rx Instructions: As directed metoprolol tartrate 50 mg tablet 50 mg PO BID 30 Days Qty: 60 11RF metformin 1,000 mg tablet 1,000 mg PO BID Qty: 180 3RF furosemide 40 mg tablet 40 mg PO BID atorvastatin 80 mg tablet 80 mg PO BEDTIME potassium chloride 10 mEq tablet extended release 10 meq PO QAM clopidogrel 75 mg tablet 75 mg PO BEDTIME tamsulosin 0.4 mg capsule 0.4 mg PO QAM glimepiride 4 mg tablet 4 mg PO QAM albuterol sulfate 90 mcg/actuation HFA aerosol inhaler 2 puff INHALATION Q6H PRN (Reason: Shortness Of Breath) Advair HFA 115-21 mcg/actuation HFA aerosol inhaler 2 puff INHALATION BID PRN (Reason: unknown) aspirin 81 mg Tablet,Delayed Release (Dr/Ec) 81 mg PO QAM Discharge Orders: Transfer Out of Facility (Order); Ordered 09/14/22 Ordered By: Jose Sparks Referrals: Kuldip Richter DO [Primary Care Provider] - Discharge Diet: As Directed Discharge Activity: Resume usual activity Patient Instructions: GI Discharge Instructions, Opioid Safety Transfer Attestations Time Spent in Transfer Care: critical care time Critical Care Time (min): 40 Status at Transfer: Cognitive status at transfer: cognitively intact; Behavioral status at transfer: cooperative; Quality Metrics Clinical Quality Measures [ No reported AMI, CVA or VTE this stay] Coding Level of Care Code 90638 Diagnoses UGI bleed K92.2 CHF (congestive heart failure) I50.9 AICD (automatic cardioverter/defibrillator) present Z95.810 Hemorrhagic shock R57.8 Acute anemia D64.9 Lactic acidosis E87.20 Goals of care, counseling/discussion Z71.89 Type 2 diabetes mellitus E11.9
[2022-09-14 11:28] LABS: Reflex Lactate Order REFLEX LACTIC ORDERD
[2022-09-14 11:32] LABS: Basophils % 0.4 %; Eosinophils % 0.1 %; Hemoglobin 8.6 g/dL (11.7-16.6); Lymphocytes # 1.3 10^3/uL (0.8-4.8); Lymphocytes % 12.1 %; Mean Corpuscular HGB Conc 33.1 g/dL (30.0-36.0); Mean Corpuscular Hemoglobin 32.3 pg (28.0-34.0); Mean Corpuscular Volume 97.7 fl (80-94); Mean Platelet Volume 10.5 fL (7.4-10.4); Monocytes # 0.8 10^3/uL (0.2-0.9); Monocytes % 7.3 %; Neutrophils % 79.7 %; Nucleated Red Blood Cells % 0 %; Platelet Count 229 10^3/cmm (130-400); Red Blood Count 2.66 10^6/uL (4.1-5.3); Red Cell Distribution Width 14.8 % (12.1-15.1); White Blood Count 10.5 10^3/uL (4.0-10.0)
[2022-09-14 11:59] LABS: INR 1.24 (0.8-1.2)
[2022-09-14 12:01] LABS: Partial Thromboplastin Time 26.5 SECONDS (23.9-36.7)
[2022-09-14 12:13] LABS: Troponin 5 2HR 44.41 ng/L (0-15)
[2022-09-14 12:14] LABS: Troponin 5 2HR Delta -1.59 ABS# (0-10)
[2022-09-14 13:06] LABS: NT Pro B Type Natriuretic Pept 1287 pg/mL (0-125)
[2022-09-14 13:09] LABS: Glucose Point of Care 197 mg/dL (70-110)
--- NOTE | 2022-09-14 13:10 | PC.NURSE ---
Called Report Called report to Harry Montgomery RN at [facility]. Answered all questions at this time. Patient has been assigned to ICU room 595.
--- NOTE | 2022-09-14 13:52 | PC.NURSE ---
Transfer Note Patient transferred to [facility] from [facility] ICU via [facility]. Handoff report given to Harry Georges Patient oriented to environment and equipment. Covering service notified. Patient notified of transfer, answered all questions at this time. At time of transfer patient is alert/oriented x4 on room air, no wounds or skin issues noted at this time. Blood & Protonix gtt infusing per order at time of transfer. All patient belongings sent with patient/[facility] transport.
--- NOTE | 2022-09-14 14:04 | P.PN_ITS ---
Subjective Subjective: - Patient was seen multiple times throughout the morning -Currently he does not have any bloody or black stools, no hemoptysis his FOBT was positive his blood pressures are a bit soft 90s over 60s hemodynamically stable, he has received his first unit PRBC repeat hemoglobin pending -ct abddomen and pelvis 1. ? High-density material in the gastric fundus could reflect ingested material, though a site of bleeding is not excluded given the patient history. -I spoke to general surgery, in detail, general surgery felt that patient would be better served [facility], with IR and GI coverage given his EF of 25%, he has a high risk of complications, and would be better served with tertiary level care, and with the GI and IR backup -Transfer was initiated, [facility] was called, initially they had a bed and they had an ICU physician available however no IR coverage so they declined the admission -Colette was on ICU hold -[facility] has not gotten back to me as of yet -I spoke to [facility], Dr. Abel houston, -I spoke to in detail with patient and family, discussed transfer, discussed morbidity and mortality of his GI bleed, his hemorrhagic shock they voiced understanding, all questions answered, agreed to proceed, they would like to pursue Air-Evac -IN detail discussed with patient, he does have a risk of morbidity and mortality during transfer, however he is currently stable, not requiring pressors, he is agreeable to transfer -Patient was transferred for concerns for hemorrhagic bleed, GI bleed, on aspirin and Plavix, need for GI, need for IR, with a past medical history of CAD stenting on aspirin Plavix, with underlying EF of 25%, lactic acid 3.1 troponin 46 BNP 1287 -I am avoiding fluids given his EF, can use Levophed as needed as needed, however not required -Repeat hemoglobin is 8.6, blood pressure is a bit soft, received another unit PRBC, currently on octreotide drip, receiving FFP -He also was complaining of bloody episode of stool, hemodynamically stable, alert oriented x3 -Currently receiving his second unit of blood, receiving FFP, last hemoglobin 8.6, alert oriented x3, vital stable, MAP greater than 65 -Patient was transferred at about 152pm -Last vital 130/67 pulse 77 respiratory 12, temperature 98.7 99% room air Vitals/I&O/Wt Last Vital Signs Temp 98.7 F 09/14/22 12:41 Pulse 77 09/14/22 12:45 Resp 12 09/14/22 12:45 BP 130/67 09/14/22 12:45 Pulse Ox 99 09/14/22 12:45 O2 Del Method 09/14/22 08:00 09/13/22 09/14/22 09/14/22 21:59 06:59 14:59 Intake Total 1243 / 1243 Balance 1243 / 1243 Weight last 48 hrs Weight 83.574 kg Weight 88.451 kg Physical Exam Const: COMMON NORMALS: no acute distress and patient oriented x3 Neck/C-Spine: COMMON NORMALS: no JVD Resp: COMMON NORMALS: normal respiratory effort, No retractions, No use of accessory muscles and clear to auscultation bilaterally AUSCULTATION: clear to auscultation bilaterally Cardio: COMMON NORMALS: no JVD, regular rate, regular rhythm, S1 normal heart sound present and S2 normal heart sound present RATE: regular rate RHYTHM: regular rhythm HEART SOUNDS: S1 normal heart sound present and S2 normal heart sound present GI: COMMON NORMALS: Normal to inspection, nondistended, normoactive bowel sounds present and non-tender Extremity: NARRATIVE EXTREMITY EXAM: 1+ pitting edema Neuro: COMMON NORMALS: patient oriented x3 Psych: COMMON NORMALS: mental status grossly normal Urinary Catheter Management: Smith: Cath Placed During This Visit: yes Urinary Catheter Date of Insertion: 09/14/22 Urinary Catheter Time of Insertion: 10:30 Data 09/14/22 11:26 09/14/22 09:55 A&P Assessment and plan (1) Hemorrhagic shock: (2) UGI bleed: (3) Acute anemia: (4) Lactic acidosis: (5) AICD (automatic cardioverter/defibrillator) present: (6) Type 2 diabetes mellitus: (7) CHF (congestive heart failure): (8) Ischemic cardiomyopathy: (9) CAD (coronary artery disease): Qualifiers: Coronary Disease-Associated Artery/Lesion type: [place] artery [place] vs. transplanted heart: osage heart Associated angina: without angina Qualified Code(s): I25.10 - Atherosclerotic heart disease of [place] coronary artery without angina pectoris (10) Type 2 diabetes mellitus with complication, without long-term current use of insulin: (11) BMI 32.0-32.9,adult: (12) Goals of care, counseling/discussion: Plan Patient was transferred to [facility] -Status post 2 units PRBC, 1 unit FFP, fluids on hold due to risk of fluid overload -Currently on Protonix drip, Carafate -For upper GI bleed -Hemorrhagic shock -Lactic acidosis -On aspirin and Plavix -Soft blood pressures -With underlying ischemic cardiomyopathy -CAD -Transfer for need of GI, IR, tertiary level care -Has type 2 diabetes mellitus -Has COPD -Goals of care confirmed full code Attestations Medical Necessity Statement*: Patient will be her to tertiary level center for for hemorrhagic shock, upper GI bleed, lactic acidosis, underlying ischemic cardiomyopathy EF of 5 % CAD, on aspirin Plavix Critical Care Time: 60 Coding Level of Care Code Critical Care >/= 30 minutes Critical care time (in minutes): 60 The high probability of a clinically significant, sudden or life threatening deterioration, as referenced in this documentation, required my full and direct attention, intervention and personal management. The critical care time shown is in addition to time spent performing any reported separately billable procedures and includes the following: [x] Data and vital sign review and interpretation [x ] Patient assessment, examination and intervention [x] Medication orders and management [x] Patient/Family updates as able [x] Care Coordination and Documentation. Diagnoses Hemorrhagic shock R57.8 UGI bleed K92.2 Acute anemia D64.9 Lactic acidosis E87.20 AICD (automatic cardioverter/defibrillator) present Z95.810 Type 2 diabetes mellitus E11.9 CHF (congestive heart failure) I50.9 Ischemic cardiomyopathy I25.5 CAD (coronary artery disease) I25.10 Coronary Disease-Associated Artery/Lesion type: [place] artery [place] vs. transplanted heart: [place]age heart Associated angina: without angina Type 2 diabetes mellitus with complication, without long-term current use of insulin E11.8 BMI 32.0-32.9,adult Z68.32 Goals of care, counseling/discussion Z71.89
== END 2022-09-14 13:52 | disposition other institution (70) ==
LOC: ER 03:51 → ICU 06:02 → ER IP 09-18 09:38
PROVIDERS: Admitting Provider Student in an Organized Health Care Education/Training Program; Emergency Provider Emergency Medicine; PCP Family Medicine; Visit Provider Family Medicine
DX: K92.2 Gastrointestinal hemorrhage, unspecified (principal); I11.0 Hypertensive heart disease with heart failure; I50.9 Heart failure, unspecified; R57.8 Other shock; Z95.810 Presence of automatic (implantable) cardiac defibrillator; D64.9 Anemia, unspecified; E87.20 Acidosis, unspecified; Z71.89 Other specified counseling; E11.9 Type 2 diabetes mellitus without complications; I25.10 Atherosclerotic heart disease of native coronary artery without angina pectoris; I25.5 Ischemic cardiomyopathy; Z79.82 Long term (current) use of aspirin; Z79.84 Long term (current) use of oral hypoglycemic drugs; Z79.02 Long term (current) use of antithrombotics/antiplatelets; J44.9 Chronic obstructive pulmonary disease, unspecified; I25.2 Old myocardial infarction; Z95.0 Presence of cardiac pacemaker
CPT/HCPCS: 36415; 36416; 36430; 51702; 74177; 80048; 80053; 82962; 83605; 83690; 83880; 84484; 85025; 85610; 85730; 86850; 86900; 86920; 86927; 93005; 96365; 96366; 96372; 96375; 99285; C9113; G0378; J1815; J2354; J2405; J7040; P9016; P9017; P9040; Q9967

== ENCOUNTER → 2022-09-22 10:46 | Outpatient (BNVA) | payer MEDICARE, SELFPAY | PROVIDERS: PCP Family Medicine; Visit Provider Family Medicine | DX: E11.9 Type 2 diabetes mellitus without complications (principal); T17.800A Unspecified foreign body in other parts of respiratory tract causing asphyxiation, initial encounter; J90 Pleural effusion, not elsewhere classified; X58.XXXA Exposure to other specified factors, initial encounter | CPT/HCPCS: 71046 ==

== ENCOUNTER 2022-09-26 14:13 | Emergency (ER) | payer MEDICARE, SELFPAY ==
[2022-09-26 14:35] VITALS: BP 100/63; PULSE 107; RESP 19; TEMP 36.4; O2SAT 96; BMI 28.8
--- NOTE | 2022-09-26 14:41 | ECG_ITS ---
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 Measurements Intervals [place] Rate: 108 P: 4 SD: 99 QRS: -38 QRSD: 238 T: 111 QT: 484 QTc: 650 Interpretive Statements ELECTRONIC VENTRICULAR PACEMAKER ABNORMAL RHYTHM ECG INTERPRETATION BASED ON A DEFAULT AGE OF 40 YEARS Compared to ECG 09/14/2022 12:33:57 No significant changes Electronically Signed On 09-26-2022 23:03:48 CDT by Ambar Prince M.D. [id number] f
[2022-09-26 16:01] LABS: Basophils % 0.3 %; Eosinophils # 0.1 10^3/uL (0.0-0.8); Eosinophils % 1.6 %; Hematocrit 27.1 % (42.0-52.0); Hemoglobin 8.8 g/dL (11.7-16.6); Lymphocytes # 0.7 10^3/uL (0.8-4.8); Lymphocytes % 11.8 %; Mean Corpuscular HGB Conc 32.5 g/dL (30.0-36.0); Mean Corpuscular Hemoglobin 30.8 pg (28.0-34.0); Mean Corpuscular Volume 94.8 fl (80-94); Mean Platelet Volume 9.6 fL (7.4-10.4); Monocytes # 0.4 10^3/uL (0.2-0.9); Monocytes % 6.8 %; Neutrophils # 4.97 10^3/uL (1.8-7.7); Neutrophils % 79.2 %; Nucleated Red Blood Cells % 0 %; Platelet Count 235 10^3/cmm (130-400); Red Blood Count 2.86 10^6/uL (4.1-5.3); Red Cell Distribution Width 14.4 % (12.1-15.1); White Blood Count 6.3 10^3/uL (4.0-10.0)
[2022-09-26 16:18] LABS: Alanine Aminotransferase 7 U/L (0-41); Albumin Level 3.1 g/dL (3.5-5.2); Alkaline Phosphatase 62 U/L (40-130); Anion Gap 15.2 (5-19); Aspartate Amino Transferase 21 U/L (0-40); Blood Urea Nitrogen 5 mg/dL (8-23); Calcium 7.6 mg/dL (8.5-10.5); Carbon Dioxide 27 mmol/L (22-29); Chloride 98 mmol/L (98-107); Globulin 2.3 g/dL (1.3-4.6); Glucose 140 mg/dL (65-115); Lipase 10 U/L (13-60); Osmolality Calculated 284 mOsm/kg (285-295); Potassium 3.2 mmol/L (3.5-5.1); Sodium 137 mmol/L (136-145); Total Bilirubin 0.4 mg/dL (0.15-1.2); Total Protein 5.4 g/dL (6.6-8.7)
[2022-09-26 16:30] VITALS: BP 112/74; PULSE 98; RESP 16; O2SAT 95
--- NOTE | 2022-09-26 17:07 | W.ED.NAVMDI ---
HPI - Nausea/Vomiting/Diarrhea General: Chief complaint: Nausea/Vomiting/Diarrhea Stated complaint: N/V Time Seen by Provider: 09/26/22 16:45 Source: patient Mode of arrival: ambulatory History of Present Illness: 72-year-old male presents emergency room with complaints of nausea and vomiting. Previously had upper GI bleed. He has not had any hematochezia melena hematemesis coffee-ground emesis. He was recently diagnosed pneumonia and started on oral antibiotics he has had a hard time keeping anything down. Patient has a history of diabetes mellitus he is on metformin 1000 mg twice daily Cough is nonproductive at this point he is on Levaquin.. MD elicited complaint: nausea and vomiting Onset (ago): day(s) Associated nausea: Yes Associated abdominal pain: No Exacerbating factors: none Relieving factors: none Associated symtoms: Reports nausea; Denies anxiety, bloating, change in vision, chest pain, cough, diaphoresis, decreased urine output, dizziness, dysuria, epistaxis, fatigue, fecal incontinence, fevers/chills, headache(s), anorexia, malaise, myalgias, numbness, palpitations, rash, short of breath, syncope, tenesmus, tinnitus or weakness Review of Systems Const: Denies: fever(s), chills, fatigue, malaise or diaphoresis Eyes: Denies: change in vision ENMT: Denies: tinnitus or epistaxis Card: Denies: chest pain, palpitations or syncope Resp: Denies: dyspnea, productive cough or non-productive cough GI: Reports: nausea and vomiting; Denies: abdominal pain, diarrhea, bloating or fecal incontinence : Denies: dysuria Skin/Breast: Denies: rash or pruritus Neuro: Denies: headache(s) or dizziness Psych: Denies: anxiety PFSH ED PFSH: Medical History Acute on chronic diastolic (congestive) heart failure CAD (coronary artery disease) Had PCI in 2017 following a heart attack CHF exacerbation COPD (chronic obstructive pulmonary disease) Dyslipidemia (high LDL; low HDL) Essential hypertension Non-ST elevation [place] (NSTEMI) Pacemaker Pneumonia Type 2 diabetes mellitus with complication, without long-term current use of insulin Surgical History AICD (automatic cardioverter/defibrillator) present History of PTCA S/P placement of cardiac pacemaker Family History Mother Cancer Family/Other Diabetes Father Lung disease Denies family history of CAD (coronary artery disease) Clotting disorder Dementia Chronic kidney disease (CKD) Suicide Anesthesia complication Bleeding disorder Stroke Social History Smoking and tobacco status: never smoked Alcohol intake: current Alcohol intake frequency: few times a week Physical Exam Const: GENERAL APPEARANCE: cooperative and comfortable ORIENTATION/CONSCIOUSNESS: Yes awake, Yes oriented to person, Yes oriented to place and Yes oriented to time HENMT: COMMON NORMALS: normocephalic, atraumatic and hearing grossly normal bilaterally HEAD & SCALP: normocephalic and atraumatic Resp: COMMON NORMALS: normal respiratory effort, No retractions and No use of accessory muscles AUSCULTATION: rales on the right at the base Cardio: COMMON NORMALS: regular rate, regular rhythm and No murmurs present (Cardio) RATE: regular rate RHYTHM: regular rhythm GI: COMMON NORMALS: Soft to palpation and No hepatosplenomegaly present AUSCULTATION: Yes normoactive bowel sounds PALPATION: Yes Soft to palpation, No Tenderness to palpation present (GI), No Guarding due to palpation present (GI) and Yes No hepatosplenomegaly present Extremity: COMMON NORMALS: normal to inspection, capillary refill normal, no clubbing, cyanosis or edema, no calf tenderness and no pedal edema Neuro: SENSORIUM/ORIENTATION: Yes oriented to person, Yes oriented to place and Yes oriented to time Skin: COMMON NORMALS: no rashes or lesions noted GENERAL SKIN EXAM: no rashes or lesions noted Course Vital Signs: Vital signs: Vital Signs Temperature 97.5 F L 09/26/22 14:35 Pulse Rate 102 H 09/26/22 19:05 Respiratory Rate 18 09/26/22 19:05 Blood Pressure 106/72 09/26/22 19:05 Pulse Oximetry 99 09/26/22 19:05 Oxygen Delivery Me thod 09/26/22 14:35 MDM - Nausea/Vomiting/Diarrhea Medical Decision Making Pneumonia on chest x-ray and clinically. Recommend at this point that he stop Levaquin and I will change him to cefdinir. Also given antiemetics to use as needed clear liquid diet for the next 24 hours and advance. His hemoglobin is low but he does not have any sign of active bleeding at this time his BUN is actually low has not had any hematochezia or melena he should have his CBC rechecked early next week return if he has any further problems. Medical Records I reviewed the patient's medical records. Lab Data I reviewed the patient's lab results. 09/26/22 15:39 09/26/22 15:39 Radiology Impressions Chest X-Ray 09/26/22 17:08 IMPRESSION: Progressive left lower lobe consolidation and small effusion likely secondary to pneumonia. Laboratory Results WBC 6.3 10^3/uL (4.0-10.0) 09/26/22 15:39 RBC 2.86 10^6/uL (4.1-5.3) L 09/26/22 15:39 Hgb 8.8 g/dL (11.7-16.6) L 09/26/22 15:39 Hct 27.1 % (42.0-52.0) L 09/26/22 15:39 MCV 94.8 fl (80-94) H 09/26/22 15:39 MCH 30.8 pg (28.0-34.0) 09/26/22 15:39 MCHC 32.5 g/dL (30.0-36.0) 09/26/22 15:39 RDW 14.4 % (12.1-15.1) 09/26/22 15:39 Plt Count 235 10^3/cmm (130-400) 09/26/22 15:39 MPV 9.6 fL (7.4-10.4) 09/26/22 15:39 Neut % (Auto) 79.2 % 09/26/22 15:39 Lymph % (Auto) 11.8 % 09/26/22 15:39 Moca % (Auto) 6.8 % 09/26/22 15:39 Eos % (Auto) 1.6 % 09/26/22 15:39 Baso % (Auto) 0.3 % 09/26/22 15:39 Neut # (Auto) 4.97 10^3/uL (1.8-7.7) 09/26/22 15:39 Lymph # (Auto) 0.7 10^3/uL (0.8-4.8) L 09/26/22 15:39 Moca # (Auto) 0.4 10^3/uL (0.2-0.9) 09/26/22 15:39 Eos # (Auto) 0.1 10^3/uL (0.0-0.8) 09/26/22 15:39 Baso # (Auto) 0.0 10^3/uL (0.0-0.1) 09/26/22 15:39 Nucleated RBC % (auto) 0 % 09/26/22 15:39 Nucleated RBCs # 0.0 /100WBC 09/26/22 15:39 Sodium 137 mmol/L (136-145) 09/26/22 15:39 Potassium 3.2 mmol/L (3.5-5.1) L 09/26/22 15:39 Chloride 98 mmol/L (98-107) 09/26/22 15:39 Carbon Dioxide 27 mmol/L (22-29) 09/26/22 15:39 Anion Gap 15.2 (5-19) 09/26/22 15:39 BUN 5 mg/dL (8-23) L 09/26/22 15:39 Creatinine 0.7 mg/dL (0.7-1.2) 09/26/22 15:39 GFR Calculation Not Reportable 09/26/22 15:39 Glucose 140 mg/dL (65-115) H 09/26/22 15:39 Calculated Osmolality 284 mOsm/kg (285-295) L 09/26/22 15:39 Calcium 7.6 mg/dL (8.5-10.5) L 09/26/22 15:39 Total Bilirubin 0.4 mg/dL (0.15-1.2) 09/26/22 15:39 AST 21 U/L (0-40) 09/26/22 15:39 ALT 7 U/L (0-41) 09/26/22 15:39 Alkaline Phosphatase 62 U/L (40-130) 09/26/22 15:39 Total Protein 5.4 g/dL (6.6-8.7) L 09/26/22 15:39 Albumin 3.1 g/dL (3.5-5.2) L 09/26/22 15:39 Globulin 2.3 g/dL (1.3-4.6) 09/26/22 15:39 Lipase 10 U/L (13-60) L 09/26/22 15:39 Blood Type A Positive 09/26/22 15:39 Rho(D) Type Positive 09/26/22 15:39 Antibody Screen Negative 09/26/22 15:39 Discharge Plan Discharge Patient Disposition: Home Clinical Impression: Pneumonia, Nausea & vomiting Condition: Stable Prescriptions: New cefdinir 300 mg capsule 300 mg PO BID 10 Days Qty: 20 0RF ondansetron 4 mg tablet,disintegrating 4 mg PO Q6H PRN (Reason: nausea and vomiting) Qty: 20 0RF No Action polyethylene glycol 3350 17 gram powder in packet 17 g PO DAILY PRN (Reason: constipation) Entresto 97-103 mg tablet 1 tab PO BID Qty: 180 3RF Hold Instructions: in [place] [facility] [place]- restart in July spironolactone 25 mg tablet 25 mg PO QAM pantoprazole 40 mg tablet,delayed release (DR/EC) 40 mg PO QAM levofloxacin 500 mg tablet 500 mg PO DAILY 10 Days Qty: 10 0RF (DME) blood-glucose meter Kit See Rx Instructions .ROUTE .MEDSUPPLY Qty: 1 0RF Rx Instructions: As directed metformin 1,000 mg tablet 1,000 mg PO BID Qty: 180 3RF atorvastatin 80 mg tablet 80 mg PO BEDTIME Qty: 90 0RF tamsulosin 0.4 mg capsule 0.4 mg PO QAM Qty: 90 0RF metoprolol tartrate 50 mg tablet 50 mg PO BID 90 Days Qty: 180 3RF furosemide 40 mg tablet 40 mg PO BID potassium chloride 10 mEq tablet extended release 10 meq PO QAM clopidogrel 75 mg tablet 75 mg PO BEDTIME glimepiride 4 mg tablet 4 mg PO QAM albuterol sulfate 90 mcg/actuation HFA aerosol inhaler 2 puff INHALATION Q6H PRN (Reason: Shortness Of Breath) Advair HFA 115-21 mcg/actuation HFA aerosol inhaler 2 puff INHALATION BID PRN (Reason: unknown) aspirin 81 mg Tablet,Delayed Release (Dr/Ec) 81 mg PO QAM Discharge Orders: Discharge ED (Routine); Ordered 09/26/22 Ordered By: Josep Padilla Referrals: Kuldip Richter DO [Primary Care Provider] - Patient Instructions: Opioid Safety, Pain Management Activity Restrictions/Additional Instructions: You are seen today for persistent nausea vomiting and pneumonia. Your hemoglobin is stable is actually increased a little bit from the last time you were seen. Recommend that you stop the Levaquin and instead take cefdinir 300 p.o. twice daily for 10 days. The ondansetron can be used for nausea and vomiting 4 mg every 6 hours as needed. 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
--- NOTE | 2022-09-26 17:08 | XRR_ITS ---
PROCEDURE INFORMATION: Exam: XR Chest Exam date and time: 09/26/2022 5:11 PM Age: 72 years old Clinical indication: Other: Recently in the hospital with a gi bleed, weak, cant keep anything down; Prior surgery; Surgery date: 1-6 months; Additional info: Dyspnea/cough TECHNIQUE: Imaging protocol: Radiologic exam of the chest. Views: 1 view. COMPARISON: CR XR chest 2V* [id number] 09/22/2022 11:04 AM FINDINGS: Lungs: There is increasing opacification behind the left heart border partially silhouetting of the left hemidiaphragm likely secondary to pneumonia. Remaining lung desouza are clear. Pleural spaces: There is mild blunting of the left costophrenic angle likely secondary to small left basilar effusion. Heart/Mediastinum: Heart is borderline enlarged unchanged. There are pacemaker wires in ICD monitors extending to the right atrium and right ventricle. Bones/joints: Unremarkable for age. XR/XR chest 1V portable [id number] IMPRESSION: Progressive left lower lobe consolidation and small effusion likely secondary to pneumonia.
[2022-09-26 17:11] VITALS: PULSE 93; RESP 18; O2SAT 96
--- NOTE | 2022-09-26 17:16 | ECG_ITS ---
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 Measurements Intervals [place] Rate: 96 P: 21 [place]: 161 QRS: -45 QRSD: 243 T: 128 QT: 468 QTc: 593 Interpretive Statements ELECTRONIC VENTRICULAR PACEMAKER ABNORMAL RHYTHM ECG Compared to ECG 09/26/2022 14:43:04 No significant changes Electronically Signed On 09-26-2022 23:05:15 CDT by Ambar Prince M.D. [id number]
[2022-09-26] MEDS: potassium chloride oral liq 20 mEq/15 mL UDC 40 MEQ PO (18:04)
[2022-09-26 18:11] VITALS: BP 121/68; PULSE 96; RESP 17; O2SAT 99
--- NOTE | 2022-09-26 18:28 | PC.NURSE ---
PT PLACED ON CONTINUOUS NIBP, SPO2, AND CM
--- NOTE | 2022-09-26 18:49 | PC.NURSE ---
TELEMETRY SUGGESTS PT IN VFIB. PHYSICIAN NOTIFIED. PHYSICIAN GAVE VERBAL ORDER FOR EKG. PT STATES HE FEELS FINE. SKIN WARM AND DRY. EKG GIVEN TO PHYSICIAN NO NEW ORDERS AT THIS TIME.
[2022-09-26 19:05] VITALS: BP 106/72; PULSE 102; RESP 18; O2SAT 99
== END 2022-09-26 19:07 | disposition home or self-care (01) ==
PROVIDERS: Emergency Medicine; Emergency Provider Family Medicine; PCP Family Medicine
DX: J18.9 Pneumonia, unspecified organism (principal); R11.2 Nausea with vomiting, unspecified; I11.0 Hypertensive heart disease with heart failure; I50.33 Acute on chronic diastolic (congestive) heart failure; E11.9 Type 2 diabetes mellitus without complications; I25.10 Atherosclerotic heart disease of native coronary artery without angina pectoris; I25.2 Old myocardial infarction; E78.5 Hyperlipidemia, unspecified; J44.9 Chronic obstructive pulmonary disease, unspecified; Z79.84 Long term (current) use of oral hypoglycemic drugs; Z95.810 Presence of automatic (implantable) cardiac defibrillator
CPT/HCPCS: 36415; 71045; 80053; 83690; 85025; 86850; 86900; 93005; 99285

== ENCOUNTER → 2022-12-03 13:00 | Outpatient (BNVA) | payer MEDICARE, SELFPAY | PROVIDERS: PCP Family Medicine; Visit Provider Family Medicine | DX: K92.2 Gastrointestinal hemorrhage, unspecified (principal) | CPT/HCPCS: 85025 ==

== ENCOUNTER → 2023-01-13 10:10 | Outpatient (BNVA) | payer MEDICARE, SELFPAY | PROVIDERS: PCP Family Medicine; Visit Provider Nurse Practitioner Family | DX: I11.0 Hypertensive heart disease with heart failure (principal); I50.33 Acute on chronic diastolic (congestive) heart failure; I25.10 Atherosclerotic heart disease of native coronary artery without angina pectoris; Z95.810 Presence of automatic (implantable) cardiac defibrillator | CPT/HCPCS: 36415; 80048; 83880; 99214 ==

== ENCOUNTER → 2023-01-20 10:55 | Outpatient (BNVA) | payer MEDICARE, SELFPAY | PROVIDERS: PCP Family Medicine; Visit Provider Family Medicine | DX: K92.2 Gastrointestinal hemorrhage, unspecified (principal); E11.9 Type 2 diabetes mellitus without complications; M79.18 Myalgia, other site; Z79.899 Other long term (current) drug therapy | CPT/HCPCS: 83036; 85025 ==

== ENCOUNTER → 2023-01-26 09:59 | Outpatient (BNVA) | payer MEDICARE, SELFPAY | PROVIDERS: PCP Family Medicine; Visit Provider Family Medicine | DX: R06.02 Shortness of breath (principal); J90 Pleural effusion, not elsewhere classified | CPT/HCPCS: 71046 ==

== ENCOUNTER → 2023-01-28 16:17 | Outpatient (BNVA) | payer MEDICARE, SELFPAY | PROVIDERS: PCP Family Medicine; Visit Provider Family Medicine | DX: R06.02 Shortness of breath (principal); I50.9 Heart failure, unspecified | CPT/HCPCS: 80048 ==

== ENCOUNTER 2023-03-02 11:30 | Emergency (ER) | payer MEDICARE, SELFPAY ==
[2023-03-02 12:04] VITALS: BP 116/75; PULSE 109; RESP 20; TEMP 36.2; O2SAT 96; BMI 28.5
--- NOTE | 2023-03-02 13:02 | XR_ITS ---
WS: [id number] Exam: XR chest 1V portable [id number] Date/Time of Exam: 03/02/2023 1:05 PM Reason For Exam: sob Comparison 01/26/2023. There is cardiac enlargement with pulmonary vascular congestion. Bibasal pleural effusions are noted. LEFT lower lobe consolidation showing little change. No pneumothorax. The mediastinum is normal in c ontour. A cardiac pacer superimposes the LEFT chest. Bony structures are intact. IMPRESSION: 1. Cardiac enlargement with pulmonary vascular congestion suggesting some degree of cardiac decompens ation. 2. Bibasal pleural effusions. Consolidation in the LEFT lower lobe unchanged.
[2023-03-02 14:37] LABS: Basophils % 0.3 %; Eosinophils % 0.5 %; Hematocrit 31.8 % (37-53); Lymphocytes # 0.5 10^3/uL (0.8-4.8); Lymphocytes % 6.7 %; Mean Corpuscular HGB Conc 30.5 g/dL (30-55); Mean Corpuscular Hemoglobin 26.4 pg (27-33); Mean Corpuscular Volume 86.4 fl (82-101); Mean Platelet Volume 10.1 fL (7.4-10.4); Monocytes # 0.4 10^3/uL (0.2-0.9); Monocytes % 5.2 %; Neutrophils # 6.72 10^3/uL (1.8-7.7); Neutrophils % 86.9 %; Nucleated Red Blood Cells % 0 %; Platelet Count 299 10^3/cmm (157-399); Red Blood Count 3.68 10^6/uL (3.85-5.65); White Blood Count 7.73 10^3/uL (3.29-11.43)
[2023-03-02 15:06] LABS: Alanine Aminotransferase 9 U/L (0-41); Albumin Level 4.3 g/dL (3.5-5.2); Alkaline Phosphatase 83 U/L (40-130); Anion Gap 17.6 (5-19); Aspartate Amino Transferase 16 U/L (0-40); Blood Urea Nitrogen 12 mg/dL (8-23); Calcium 8.5 mg/dL (8.5-10.5); Carbon Dioxide 24 mmol/L (22-29); Chloride 94 mmol/L (98-107); Globulin 2.4 g/dL (1.3-4.6); Glucose 237 mg/dL (65-115); NT Pro B Type Natriuretic Pept 8195 pg/mL (0-125); Osmolality Calculated 277 mOsm/kg (285-295); Potassium 5.6 mmol/L (3.5-5.1); Sodium 130 mmol/L (136-145); Total Bilirubin 0.5 mg/dL (0.15-1.2); Total Protein 6.7 g/dL (6.6-8.7)
--- NOTE | 2023-03-02 16:01 | ED_ITS ---
HPI - SOB/Dyspnea General: Chief Complaint: Shortness of Breath/Dyspnea Stated Complaint: sob, body ache, weakness, nausea Time Seen by Provider: 03/02/23 15:01 History of Present Illness: HPI Narrative: 72-year-old male presents with his for 1 month of chest congestion and shortness of breath. Patient states that he uses oxygen as needed at home. He takes Lasix 40 mg twice a day as well as spironolactone in the morning. He has had frequent exacerbations of congestive heart failure related to a low ejection fraction and a history of ischemic heart disease with heart attacks. He reports he is not having any chest discomfort or any signs of a heart attack but believes he is having fluid backup. His ankles have been swollen and he feels like he has chest congestion with frequent phlegm production. He has not had any fever, chills, hemoptysis. He does state that he has been having trouble with insomnia. He has pain in his upper back and posterior neck. He has had this for a long time and has historically taken Tylenol for it. Patient reports Dr. Prince and his primary care doctor prescribed him some Bumex that he could take whenever he is having an exacerbation. He was given to him to use as needed. He has not used it as of yet. He reports that his body is pretty used to the Lasix and that Bumex worked really well last time he used it. Patient does have a pacemaker. Associated symptoms: Deny abdominal pain, chest pain, extremity pain, fever(s), nausea, syncope or vomiting Review of Systems General: Reports: 10 or more systems reviewed and unremarkable except in HPI and below Const: Denies: fever(s), chills or body aches Eyes: Denies: change in vision ENMT: Denies: throat pain Card: Denies: chest pain or syncope GI: Denies: abdominal pain, nausea, vomiting or diarrhea : Denies: flank pain, dysuria or urinary frequency Musc: Denies: extremity pain Skin/Breast: Denies: rash or erythema Neuro: Denies: headache(s), numbness in extremities, weakness in extremities, lack of coordination or difficulty walking [facility] ED PFSH: Medical History Acute on chronic diastolic (congestive) heart failure CAD (coronary artery disease) Had PCI in 2017 following a heart attack CHF exacerbation COPD (chronic obstructive pulmonary disease) Dyslipidemia (high LDL; low HDL) Essential hypertension Non-ST elevation [place] (NSTEMI) Pacemaker Pneumonia Type 2 diabetes mellitus with complication, without long-term current use of insulin Surgical History AICD (automatic cardioverter/defibrillator) present History of PTCA S/P placement of cardiac pacemaker Family History Mother Cancer Family/Other Diabetes Father Lung disease Denies family history of CAD (coronary artery disease) Clotting disorder Dementia Chronic kidney disease (CKD) Suicide Anesthesia complication Bleeding disorder Stroke Social History Smoking and tobacco status: never smoked Alcohol intake: current Alcohol intake frequency: few times a week Substance/Drug Use: never Physical Exam Const: COMMON NORMALS: no limitations, alert and well nourished EXAM LIMITATIONS: no altered mental status HENMT: COMMON NORMALS: normocephalic, atraumatic and external ears normal HEAD & SCALP: normocephalic and atraumatic EXTERNAL EAR: Yes external ears normal MOUTH: no muffled voice Eye: COMMON NORMALS: EOMs intact bilaterally, conjunctivae normal and no scleral icterus CONJUNCTIVA: Yes conjunctivae normal Neck/C-Spine: COMMON NORMALS: no JVD GENERAL: Yes normal visual inspection and Yes trachea midline Resp: OTHER: Diminished in the left lower lung. Respiratory rate 20. No wheezing, no crackles, no accessory muscle use. There is bilateral lower extremity edema with pitting in the ankles Cardio: COMMON NORMALS: no JVD, regular rate and regular rhythm RATE: regular rate RHYTHM: regular rhythm GI: COMMON NORMALS: Soft to palpation and non-tender PALPATION: Yes Soft to palpation and No Guarding due to palpation present (GI) Extremity: COMMON NORMALS: normal to inspection Neuro: COMMON NORMALS: moves all extremities, no focal motor deficits and no sensory deficits noted SENSORIUM/ORIENTATION: Yes alert SPEECH: speech normal Psych: COMMON NORMALS: mental status grossly normal, Normal thought process present, cooperative, normal affect and speech normal SPEECH: Yes normal speech THOUGHT PROCESS: Normal thought process present Skin: COMMON NORMALS: no rashes or lesions noted, turgor normal and no jaundice GENERAL SKIN EXAM: no rashes or lesions noted and turgor normal Course Vital Signs: Vital signs: Vital Signs Temperature 97.1 F L 03/02/23 12:04 Pulse Rate 109 H 03/02/23 12:04 Respiratory Rate 20 H 03/02/23 12:04 Blood Pressure 116/75 03/02/23 12:04 Pulse Oximetry 96 03/02/23 12:04 Oxygen Delivery Me thod Room Air 03/02/23 12:04 MDM - SOB/Dyspnea Medical Decision Making Pleasant 72-year-old male with 1 month of dyspnea worse with exertion or laying flat. He does have a history of ischemic heart disease and low ejection fraction. He does have lower extremity edema. He has been compliant with his Lasix and spironolactone. He denies any anginal symptoms. He does have some discomfort in his upper back and posterior neck. He had multiple areas of tenderness throughout the cervical spine, trapezius, rhomboids. Patient is in a paced rhythm on his telemetry. Given the duration of symptoms this does not s ound like an acute coronary syndrome. On the patient's chest x-ray he does have cardiomegaly and pulmonary vascular congestion. There is left lower lobe consolidation which is only partially visualized on this AP view. There is a small right-sided pleural effusion. I discussed with the patient and his different options. The patient would like to try Bumex before going to alternative treatments. I did explain that the chest x-ray can be limited and if he is not improving with the Bumex then he should have a CT scan of his chest. They were in agreement with this. The patient is noted to have chronic anemia but it is improved since prior. Patient says that he has trouble sleeping at night. He is always slept 3 to 4 hours a night but would like to sleep more. He also has poor appetite and decreased activity levels. I spoke to him about treatment options; we're going to try low dose trazodone and see if it helps with aforementioned. Pt's potassium is mildly elevated--he's on K+ and on spironolactone. We're adding a few doses of bumex and having him hold K for 4 days. F/u with pcp for repeat blood work. Lab Data 03/02/23 13:58 03/02/23 13:58 Labs/Radiology: Laboratory Results WBC 7.73 10^3/uL (3.29-11.43) 03/02/23 13:58 RBC 3.68 10^6/uL (3.85-5.65) L 03/02/23 13:58 Hgb 9.70 g/dL (11.27-16.99) L 03/02/23 13:58 Hct 31.8 % (37-53) L 03/02/23 13:58 MCV 86.4 fl (82-101) 03/02/23 13:58 MCH 26.4 pg (27-33) L 03/02/23 13:58 MCHC 30.5 g/dL (30-55) 03/02/23 13:58 RDW 20.0 % (12.1-15.1) H 03/02/23 13:58 Plt Count 299 10^3/cmm (157-399) 03/02/23 13:58 MPV 10.1 fL (7.4-10.4) 03/02/23 13:58 Neut % (Auto) 86.9 % 03/02/23 13:58 Lymph % (Auto) 6.7 % 03/02/23 13:58 Logan % (Auto) 5.2 % 03/02/23 13:58 Eos % (Auto) 0.5 % 03/02/23 13:58 Baso % (Auto) 0.3 % 03/02/23 13:58 Neut # (Auto) 6.72 10^3/uL (1.8-7.7) 03/02/23 13:58 Lymph # (Auto) 0.5 10^3/uL (0.8-4.8) L 03/02/23 13:58 Logan # (Auto) 0.4 10^3/uL (0.2-0.9) 03/02/23 13:58 Eos # (Auto) 0.0 10^3/uL (0.0-0.8) 03/02/23 13:58 Baso # (Auto) 0.0 10^3/uL (0.0-0.1) 03/02/23 13:58 Nucleated RBC % (auto) 0 % 03/02/23 13:58 Nucleated RBCs # 0.0 /100WBC 03/02/23 13:58 Sodium 130 mmol/L (136-145) L 03/02/23 13:58 Potassium 5.6 mmol/L (3.5-5.1) H 03/02/23 13:58 Chloride 94 mmol/L (98-107) L 03/02/23 13:58 Carbon Dioxide 24 mmol/L (22-29) 03/02/23 13:58 Anion Gap 17.6 (5-19) 03/02/23 13:58 BUN 12 mg/dL (8-23) 03/02/23 13:58 Creatinine 0.8 mg/dL (0.7-1.2) 03/02/23 13:58 GFR Calculation Not Reportable 03/02/23 13:58 Glucose 237 mg/dL (65-115) H 03/02/23 13:58 Calculated Osmolality 277 mOsm/kg (285-295) L 03/02/23 13:58 Calcium 8.5 mg/dL (8.5-10.5) 03/02/23 13:58 Total Bilirubin 0.5 mg/dL (0.15-1.2) 03/02/23 13:58 AST 16 U/L (0-40) 03/02/23 13:58 ALT 9 U/L (0-41) 03/02/23 13:58 Alkaline Phosphatase 83 U/L (40-130) 03/02/23 13:58 NT-Pro-B Natriuret Pep 8195 pg/mL (0-125) H 03/02/23 13:58 Total Protein 6.7 g/dL (6.6-8.7) 03/02/23 13:58 Albumin 4.3 g/dL (3.5-5.2) 03/02/23 13:58 Globulin 2.4 g/dL (1.3-4.6) 03/02/23 13:58 Discharge Plan Discharge Patient Disposition: Home Clinical Impression: Acute exacerbation of CHF (congestive heart failure), Chronic anemia, Bilateral pleural effusion, Left lower lobe consolidation, Hyperkalemia Condition: Stable Prescriptions: New trazodone 50 mg tablet 50 mg PO .hs PRN (Reason: insomnia) Qty: 30 0RF bumetanide 1 mg tablet 1 mg PO BID PRN (Reason: edema) 5 Days Qty: 10 0RF No Action polyethylene glycol 3350 17 gram powder in packet 17 g PO DAILY PRN (Reason: constipation) pantoprazole 40 mg tablet,delayed release (DR/EC) 40 mg PO QAM Qty: 90 3RF ondansetron 4 mg tablet,disintegrating 4 mg PO Q6H PRN (Reason: nausea and vomiting) Qty: 40 2RF metolazone 2.5 mg tablet 2.5 mg PO DAILY Qty: 30 3RF spironolactone 25 mg tablet 25 mg PO QAM furosemide 40 mg tablet 40 mg PO BID Qty: 60 11RF (DME) OXYGEN 2L VIA NC 24 HOURS See Rx Instructions .Route .MEDSUPPLY Qty: 1 0RF Rx Instructions: As directed 2 l VIA NC 24 hours ;sat oxygen 82% RA walk, 98% RA rest, 96 walk on 2L (DME) blood-glucose meter Kit See Rx Instructions .ROUTE .MEDSUPPLY Qty: 1 0RF Rx Instructions: As directed metformin 1,000 mg tablet 1,000 mg PO BID Qty: 180 3RF atorvastatin 80 mg tablet 80 mg PO BEDTIME Qty: 90 0RF tamsulosin 0.4 mg capsule 0.4 mg PO QAM Qty: 90 0RF metoprolol tartrate 50 mg tablet 50 mg PO BID 90 Days Qty: 180 3RF albuterol sulfate 90 mcg/actuation HFA aerosol inhaler 2 puff INHALATION Q6H PRN (Reason: Shortness Of Breath) Qty: 8.5 11RF Advair HFA 115-21 mcg/actuation HFA aerosol inhaler See Rx Instructions .ROUTE .COMPLEX Qty: 12 4RF Dose Instruction: INHALE TWO (2) PUFFS BY MOUTH TWICE A DAY USE WITH SPACER Rx Instructions: INHALE TWO (2) PUFFS BY MOUTH TWICE A DAY USE WITH SPACER glimepiride 4 mg tablet See Rx Instructions .ROUTE .COMPLEX Qty: 90 3RF Dose Instruction: TAKE ONE TABLET BY MOUTH ONCE DAILY Rx Instructions: TAKE ONE TABLET BY MOUTH ONCE DAILY losartan 50 mg tablet 50 mg PO DAILY Qty: 90 3RF potassium chloride 10 mEq tablet extended release 20 meq PO QAM Qty: 180 3RF clopidogrel 75 mg tablet 75 mg PO BEDTIME aspirin 81 mg Tablet,Delayed Release (Dr/Ec) 81 mg PO QAM Discharge Orders: Discharge ED (Routine); Ordered 03/02/23 Ordered By: Yoan Cornelius Referrals: Kuldip Richter, DO [Primary Care Provider] - 4-7 days (1 mos fluid overload, chest congestion, trying PRN dose bumex. Needs f/u. If not improving may need CT chest, eval CAD, repeat lytes, etc.) Discharge Diet: Regular Discharge Activity: Increase activity as tolerated Patient Instructions: Heart Failure (ED), Pleurisy (ED), Pulmonary Edema (ED), Hyperkalemia (ED), Opioid Safety, Pain Management Activity Restrictions/Additional Instructions: Take bumetanide (Bumex) 1 mg today. If you still have symptoms tomorrow you may take another 1 mg of Bumex. These medications are in addition to your Lasix and your spironolactone. Your potassium was mildly elevated today but by taking extra diuretics, it should balance out. You have been having pain in your upper back and neck. It is unclear whether this is musculoskeletal etiology or whether this is referred pain from the pleural effusion and left lower lobe consolidation. As I discussed with you, if you are not improving with the Bumex treatment and you will need to have a CT scan of your chest. Please follow-up with your primary care doctor in 4 to 7 days for repeat evaluation and recheck of your electrolytes and kidney function. Return to the emergency department if you have chest discomfort, feel like you are going to pass out, increasing shortness of breath, fever, coughing up blood, worsening swelling, or other signs of decompensation. The trazodone is a medication that is used off label to help with sleep. You may use 50 mg at nighttime as needed for insomnia. Coding Level of Care Code ED Herb Digger for Lennox Dior
[2023-03-02 16:10] VITALS: BP 98/67
--- NOTE | 2023-03-03 11:16 | DCPLANNER ---
merchandising execution manager had an order for an echo cardiogram for patient after speaking with physician the order for the echocardiogram was cancelled. The physician did order an outpatient CT of chest. merchandising execution manager faxed signed order to centralized scheduling, who will call patient with appointment information.
== END 2023-03-02 16:13 | disposition home or self-care (01) ==
PROVIDERS: Physician Assistant; Emergency Provider Emergency Medicine; PCP Family Medicine
DX: I11.0 Hypertensive heart disease with heart failure (principal); I50.9 Heart failure, unspecified; D64.89 Other specified anemias; J90 Pleural effusion, not elsewhere classified; J44.0 Chronic obstructive pulmonary disease with (acute) lower respiratory infection; J18.1 Lobar pneumonia, unspecified organism; E87.5 Hyperkalemia; Z79.82 Long term (current) use of aspirin; Z79.02 Long term (current) use of antithrombotics/antiplatelets; Z79.84 Long term (current) use of oral hypoglycemic drugs; I25.10 Atherosclerotic heart disease of native coronary artery without angina pectoris; E78.5 Hyperlipidemia, unspecified; I25.2 Old myocardial infarction; E11.9 Type 2 diabetes mellitus without complications; Z95.0 Presence of cardiac pacemaker
CPT/HCPCS: 36415; 71045; 80053; 83880; 85025; 99284

== ENCOUNTER → 2023-03-11 09:46 | Outpatient (BNVA) | payer MEDICARE, SELFPAY | PROVIDERS: PCP Family Medicine; Visit Provider Family Medicine | DX: I50.9 Heart failure, unspecified (principal); D64.9 Anemia, unspecified | CPT/HCPCS: 80053; 85025 ==

== ENCOUNTER → 2023-03-18 08:00 | Outpatient (BNVA) | payer MEDICARE, SELFPAY | PROVIDERS: PCP Family Medicine; Visit Provider Family Medicine | DX: I10 Essential (primary) hypertension (principal); I50.9 Heart failure, unspecified | CPT/HCPCS: 80053 ==

== ENCOUNTER 2023-03-23 14:03 | Emergency (ER) | payer MEDICARE, SELFPAY ==
[2023-03-23 14:22] VITALS: BP 101/61; PULSE 103; RESP 17; TEMP 36.8; O2SAT 97; BMI 28.1
--- NOTE | 2023-03-23 14:29 | ED_ITS ---
HPI - Weakness General: Chief complaint: Weakness Stated complaint: low blood pressure Time Seen by Provider: 03/23/23 14:24 History of Present Illness: 72-year-old male with a history of prior disease, CHF, COPD, hyperlipidemia, hypertension and pacemaker presents emergency room from a local clinic due to generalized weakness and abnormal labs. According to the patient and his patient has been having generalized weakness and unsteady gait for about 2 to 3 months. Patient was seen and evaluated today and was found to have low sodium and was sent to the emergency room for further evaluation and treatment. Upon present emergency room patient denies any headache, chest pain, shortness of breath, abdominal pain, nausea, vomiting or diarrhea. No sick contact or recent foreign travel. Associated symptoms: Denies chills, confusion, fever(s), headache(s), nausea or vomiting Review of Systems Const: Reports: fatigue; Denies: fever(s), chills, body aches or change in appetite GI: Denies: abdominal pain, nausea, vomiting, hematemesis or coffee ground emesis Neuro: Reports: weakness in extremities and frequent falls; Denies: headache(s), numbness in extremities, sensory changes, lack of coordination, difficulty walking, dizziness, vertigo, confusion, Slurred speech present, difficulty communicating thoughts, seizure-like activity, involuntary movements, restless legs or other PFSH ED PFSH: Medical History Acute on chronic diastolic (congestive) heart failure CAD (coronary artery disease) Had PCI in 2017 following a heart attack CHF exacerbation COPD (chronic obstructive pulmonary disease) Dyslipidemia (high LDL; low HDL) Essential hypertension Non-ST elevation [place] (NSTEMI) Pacemaker Pneumonia Type 2 diabetes mellitus with complication, without long-term current use of insulin Surgical History AICD (automatic cardioverter/defibrillator) present History of PTCA S/P placement of cardiac pacemaker Family History Mother Cancer Family/Other Diabetes Father Lung disease Denies family history of CAD (coronary artery disease) Clotting disorder Dementia Chronic kidney disease (CKD) Suicide Anesthesia complication Bleeding disorder Stroke Social History Smoking and tobacco status: never smoked Alcohol intake: current Alcohol intake frequency: few times a week Substance/Drug Use: never Physical Exam Const: COMMON NORMALS: no acute distress, average body habitus, patient oriented x3, no limitations, healthy appearing, alert and well nourished HENMT: COMMON NORMALS: normocephalic, atraumatic, hearing grossly normal bilaterally, external ears normal, EAC's normal, TM's normal bilaterally, Normal external nose present, Normal nasal mucous membranes and turbinates present, moist oral mucous membranes, oropharynx normal, dentition normal and gingiva normal HEAD & SCALP: normocephalic and atraumatic NOSE: Normal external n ose present and Normal nasal mucous membranes and turbinates present EXTERNAL EAR: Yes external ears normal EXTERNAL AUDITORY CANAL: EAC's normal TYMPANIC MEMBRANE: TM's normal bilaterally Neck/C-Spine: COMMON NORMALS: no JVD Chest: COMMONS NORMALS: normal inspection of the chest, normal palpation of entire chest wall, normal inspection of the breasts and normal palpation of the breasts Breast/axilla inspection: Yes normal inspection of the breasts BREAST/AXILLA PALPATION: Yes normal palpation of the breasts Resp: COMMON NORMALS: normal respiratory effort, No retractions, No use of accessory muscles, clear to auscultation bilaterally and percussion normal AUSCULTATION: clear to auscultation bilaterally PERCUSSION: percussion normal Cardio: COMMON NORMALS: no JVD, regular rate, regular rhythm, S1 normal heart sound present, S2 normal heart sound present, No gallops present (Cardio), No clicks present (Cardio), No murmurs present (Cardio), No rub (Cardio) and Peripheral pulses 2+ throughout RATE: regular rate RHYTHM: regular rhythm HEART SOUNDS: S1 normal heart sound present and S2 normal heart sound present PERIPHERAL PULSES: Peripheral pulses 2+ throughout GI: COMMON NORMALS: Normal to inspection, nondistended, normoactive bowel sounds present, Soft to palpation, non-tender, No hepatosplenomegaly present, no masses and no bruits PALPATION: Yes Soft to palpation and Yes No hepatosplen omegaly present Extremity: COMMON NORMALS: normal to inspection, full ROM, capillary refill normal, no joint enlargement, no clubbing, cyanosis or edema, no calf tenderness and no pedal edema Neuro: COMMON NORMALS: patient oriented x3 SENSORIUM/ORIENTATION: Yes alert CRANIAL NERVES: Yes CN normal except as noted SPEECH: speech normal GAIT: Yes Normal gait present, No Shuffling gait present, No Scissors gait present, No Wide-based gait present and No Assistive device used SENSORY EXAM: Yes extremities Psych: COMMON NORMALS: mental status grossly normal, Normal thought process present, cooperative, normal affect, speech normal, activity/motor behavior normal, denies hallucinations, denies homicidal ideation and denies suicidal ideation SPEECH: Yes normal speech THOUGHT PROCESS: Normal thought process present Skin: COMMON NORMALS: no rashes or lesions noted, no wounds, turgor normal, no jaundice, no petechiae and no mottling GENERAL SKIN EXAM: no rashes or lesions noted and turgor normal Course Reevaluation(s): Reevaluation #1: Patient reassessed at this time patient reveals that she is feeling better without any acute distress. Consultations: Consultation #1: Discussed patient with hospitalist and patient was made to discharge home patient with close follow-up PCP for repeat electrolytes. Vital Signs: Vital signs: Vital Signs Temperature 98.3 F 03/23/23 14:22 Pulse Rate 84 03/23/23 17:15 Respiratory Rate 16 03/23/23 17:15 Blood Pressure 113/81 03/23/23 17:15 Pulse Oximetry 97 03/23/23 17:15 Oxygen Delivery Me thod Room Air 03/23/23 16:40 MDM - Weakness Medical Decision Making 72-year-old male who was seen made comfortable in emergency room. Patient was given IV fluid and mag supplement. Upon reassessment patient feels a little better. Patient will be discharged home with close follow-up PCP for repeat electrolytes. She will like to be discharged rather been admitted. Discharge blood pressure was 114/60 on the monitor. Differential Diagnosis Likely anemia, hypoglycemia, hypothyroidism, rhabdomyolysis, sepsis and dehydration Lab Data 03/23/23 14:50 03/23/23 14:50 Laboratory Results WBC 5.37 10^3/uL (3.29-11.43) 03/23/23 14:50 RBC 3.32 10^6/uL (3.85-5.65) L 03/23/23 14:50 Hgb 9.00 g/dL (11.27-16.99) L 03/23/23 14:50 Hct 29.1 % (37-53) L 03/23/23 14:50 MCV 87.7 fl (82-101) D 03/23/23 14:50 MCH 27.1 pg (27-33) 03/23/23 14:50 MCHC 30.9 g/dL (30-55) D 03/23/23 14:50 RDW 21.2 % (12.1-15.1) H 03/23/23 14:50 Plt Count 263 10^3/cmm (157-399) 03/23/23 14:50 MPV 9.7 fL (7.4-10.4) 03/23/23 14:50 Neut % (Auto) 77.1 % 03/23/23 14:50 Lymph % (Auto) 12.8 % 03/23/23 14:50 Callahan % (Auto) 8.4 % 03/23/23 14:50 Eos % (Auto) 0.9 % 03/23/23 14:50 Baso % (Auto) 0.4 % 03/23/23 14:50 Neut # (Auto) 4.14 10^3/uL (1.8-7.7) 03/23/23 14:50 Lymph # (Auto) 0.7 10^3/uL (0.8-4.8) L 03/23/23 14:50 Callahan # (Auto) 0.5 10^3/uL (0.2-0.9) 03/23/23 14:50 Eos # (Auto) 0.1 10^3/uL (0.0-0.8) 03/23/23 14:50 Baso # (Auto) 0.0 10^3/uL (0.0-0.1) 03/23/23 14:50 Nucleated RBC % (auto) 0 % 03/23/23 14:50 Nucleated RBCs # 0.0 /100WBC 03/23/23 14:50 Sodium 123 mmol/L (136-145) L 03/23/23 14:50 Potassium 4.1 mmol/L (3.5-5.1) 03/23/23 14:50 Chloride 89 mmol/L (98-107) L 03/23/23 14:50 Carbon Dioxide 25 mmol/L (22-29) 03/23/23 14:50 Anion Gap 13.1 (5-19) 03/23/23 14:50 BUN 13 mg/dL (8-23) 03/23/23 14:50 Creatinine 0.8 mg/dL (0.7-1.2) 03/23/23 14:50 GFR Calculation Not Reportable 03/23/23 14:50 Glucose 109 mg/dL (65-115) 03/23/23 14:50 Calculated Osmolality 257 mOsm/kg (285-295) L 03/23/23 14:50 Calcium 8.2 mg/dL (8.5-10.5) L 03/23/23 14:50 Magnesium 1.5 mg/dL (1.7-2.3) L 03/23/23 14:50 Total Bilirubin 0.5 mg/dL (0.15-1.2) 03/23/23 14:50 AST 18 U/L (0-40) 03/23/23 14:50 ALT 9 U/L (0-41) 03/23/23 14:50 Alkaline Phosphatase 66 U/L (40-130) 03/23/23 14:50 Total Protein 5.7 g/dL (6.6-8.7) L 03/23/23 14:50 Albumin 3.3 g/dL (3.5-5.2) L 03/23/23 14:50 Globulin 2.4 g/dL (1.3-4.6) 03/23/23 14:50 Urine Color Yellow (Yellow) 03/23/23 15:35 Urine Appearance Clear (CLEAR) 03/23/23 15:35 Urine pH 5 (5-7) 03/23/23 15:35 Ur Specific [place] 1.015 (1.005-1.030) 03/23/23 15:35 Urine Protein Neg (Negative) 03/23/23 15:35 Urine Glucose (UA) Norm (Normal) 03/23/23 15:35 Urine Ketones Negative (Negative) 03/23/23 15:35 Urine Blood Neg (Negative) 03/23/23 15:35 Urine Nitrate Negative (Negative) 03/23/23 15:35 Urine Bilirubin Neg (Negative) 03/23/23 15:35 Urine Urobilinogen Norm mg/dL (Negative) 03/23/23 15:35 Ur Leukocyte Esterase Negative (Negative) 03/23/23 15:35 No radiology studies performed this visit Critical Care Time Critical Care Time: Critical Care Time: Yes Total Critical Care Time: 40 Attestation: Patient made comfortable emergency room time spent discussing labs and treatment with patient and family. Spent giving patient replacement including IV fluid and magnesium supplement. Discharge Plan Discharge Patient Disposition: Home Clinical Impression: Hypomagnesemia, Acute hyponatremia Condition: Stable Prescriptions: No Action polyethylene glycol 3350 17 gram powder in packet 17 g PO DAILY PRN (Reason: constipation) pantoprazole 40 mg tablet,delayed release (DR/EC) 40 mg PO QAM Qty: 90 3RF spironolactone 25 mg tablet 25 mg PO QAM (DME) OXYGEN 2L VIA NC 24 HOURS See Rx Instructions .Route .MEDSUPPLY Qty: 1 0RF Rx Instructions: As directed 2 l VIA NC 24 hours ;sat oxygen 82% RA walk, 98% RA rest, 96 walk on 2L metolazone 2.5 mg tablet 2.5 mg PO DAILY PRN (Reason: Edema) furosemide 40 mg tablet 40 mg PO BID (DME) blood-glucose meter Kit See Rx Instructions .ROUTE .MEDSUPPLY Qty: 1 0RF Rx Instructions: As directed metformin 1,000 mg tablet 1,000 mg PO BID Qty: 180 3RF atorvastatin 80 mg tablet 80 mg PO BEDTIME Qty: 90 0RF tamsulosin 0.4 mg capsule 0.4 mg PO QAM Qty: 90 0RF metoprolol tartrate 50 mg tablet 50 mg PO BID 90 Days Qty: 180 3RF albuterol sulfate 90 mcg/actuation HFA aerosol inhaler 2 puff INHALATION Q6H PRN (Reason: Shortness Of Breath) Qty: 8.5 11RF Advair HFA 115-21 mcg/actuation HFA aerosol inhaler See Rx Instructions .ROUTE .COMPLEX Qty: 12 4RF Dose Instruction: INHALE TWO (2) PUFFS BY MOUTH TWICE A DAY USE WITH SPACER Rx Instructions: INHALE TWO (2) PUFFS BY MOUTH TWICE A DAY USE WITH SPACER losartan 50 mg tablet 50 mg PO DAILY Qty: 90 3RF potassium chloride 10 mEq tablet extended release 20 meq PO QAM Qty: 180 3RF ondansetron 4 mg tablet,disintegrating See Rx Instructions .ROUTE .COMPLEX Qty: 40 2RF Dose Instruction: DISSOLVE ONE TABLET ON TOP OF THE TONGUE WHERE IT WILL DISSOLVE THEN SWALLOW EVERY 6 HOURS NEEDED NAUSEA AND VOMITING Rx Instructions: DISSOLVE ONE TABLET ON TOP OF THE TONGUE WHERE IT WILL DISSOLVE THEN SWALLOW EVERY 6 HOURS NEEDED NAUSEA AND VOMITING clopidogrel 75 mg tablet 75 mg PO BEDTIME aspirin 81 mg Tablet,Delayed Release (Dr/Ec) 81 mg PO QAM glimepiride 4 mg tablet 4 mg PO DAILY Discharge Orders: Discharge ED (Routine); Ordered 03/23/23 Ordered By: Maan Mayberry Referrals: Kuldip Richter DO [Primary Care Provider] - Discharge Diet: Advance as tolerated Discharge Activity: Resume usual activity Patient Instructions: Opioid Safety, Pain Management Coding Level of Care Code ED [employer] for Lennox Dior
[2023-03-23 14:58] LABS: Basophils % 0.4 %; Eosinophils # 0.1 10^3/uL (0.0-0.8); Eosinophils % 0.9 %; Hematocrit 29.1 % (37-53); Lymphocytes # 0.7 10^3/uL (0.8-4.8); Lymphocytes % 12.8 %; Mean Corpuscular HGB Conc 30.9 g/dL (30-55); Mean Corpuscular Hemoglobin 27.1 pg (27-33); Mean Corpuscular Volume 87.7 fl (82-101); Mean Platelet Volume 9.7 fL (7.4-10.4); Monocytes # 0.5 10^3/uL (0.2-0.9); Monocytes % 8.4 %; Neutrophils # 4.14 10^3/uL (1.8-7.7); Neutrophils % 77.1 %; Nucleated Red Blood Cells % 0 %; Platelet Count 263 10^3/cmm (157-399); Red Blood Count 3.32 10^6/uL (3.85-5.65); Red Cell Distribution Width 21.2 % (12.1-15.1); White Blood Count 5.37 10^3/uL (3.29-11.43)
[2023-03-23 15:26] LABS: Alanine Aminotransferase 9 U/L (0-41); Albumin Level 3.3 g/dL (3.5-5.2); Alkaline Phosphatase 66 U/L (40-130); Aspartate Amino Transferase 18 U/L (0-40); Blood Urea Nitrogen 13 mg/dL (8-23); Calcium 8.2 mg/dL (8.5-10.5); Carbon Dioxide 25 mmol/L (22-29); Chloride 89 mmol/L (98-107); Globulin 2.4 g/dL (1.3-4.6); Glucose 109 mg/dL (65-115); Magnesium 1.5 mg/dL (1.7-2.3); Osmolality Calculated 257 mOsm/kg (285-295); Sodium 123 mmol/L (136-145); Total Bilirubin 0.5 mg/dL (0.15-1.2); Total Protein 5.7 g/dL (6.6-8.7)
[2023-03-23 15:31] LABS: Anion Gap 13.1 (5-19); Potassium 4.1 mmol/L (3.5-5.1)
[2023-03-23 15:39] LABS: Add Urine Microscopic? NO; Charge for UA Resulting for Rev
[2023-03-23 15:46] LABS: Bilirubin Urine Neg (Negative); Blood Urine Neg (Negative); Glucose Urine UA Norm (Normal); Ketones Urine Negative (Negative); Leukocyte Esterase Urine Negative (Negative); Nitrate Urine Negative (Negative); Protein Urine Neg (Negative); Specific Gravity, Urine 1.015 (1.005-1.030); Urine Appearance Clear (CLEAR); Urine Color Yellow (Yellow); Urobilinogen Urine Norm (Negative); pH Urine 5 (5-7)
[2023-03-23] MEDS: magnesium sulfate premix 2 GM/50 ML PIGGYBACK IV (16:02)
[2023-03-23] MEDS: sodium chloride 0.9% 1,000 ML 999 ML IV (16:03)
[2023-03-23 16:40] VITALS: PULSE 100; RESP 18; O2SAT 95
[2023-03-23] MEDS: ipratropium-albuterol 3 mL Neb INHALATION (16:43)
[2023-03-23 16:46] VITALS: PULSE 101
[2023-03-23 17:15] VITALS: BP 113/81; PULSE 84; RESP 16; O2SAT 97
== END 2023-03-23 17:40 | disposition home or self-care (01) ==
PROVIDERS: Emergency Provider Family Medicine; PCP Family Medicine
DX: E83.42 Hypomagnesemia (principal); E87.1 Hypo-osmolality and hyponatremia; Z79.82 Long term (current) use of aspirin; Z79.84 Long term (current) use of oral hypoglycemic drugs; Z79.02 Long term (current) use of antithrombotics/antiplatelets; I25.10 Atherosclerotic heart disease of native coronary artery without angina pectoris; I11.0 Hypertensive heart disease with heart failure; I50.33 Acute on chronic diastolic (congestive) heart failure; J44.9 Chronic obstructive pulmonary disease, unspecified; E78.5 Hyperlipidemia, unspecified; I25.2 Old myocardial infarction; Z95.0 Presence of cardiac pacemaker; E11.9 Type 2 diabetes mellitus without complications
CPT/HCPCS: 36415; 80053; 81003; 83735; 85025; 94640; 96361; 96365; 99284; J3475; J7030

== ENCOUNTER → 2023-04-21 10:03 | Outpatient (BNVA) | payer MEDICARE, SELFPAY | PROVIDERS: PCP Family Medicine; Visit Provider Internal Medicine Cardiovascular Disease | DX: Z95.810 Presence of automatic (implantable) cardiac defibrillator (principal); I25.10 Atherosclerotic heart disease of native coronary artery without angina pectoris; E78.5 Hyperlipidemia, unspecified; E11.8 Type 2 diabetes mellitus with unspecified complications; Z79.84 Long term (current) use of oral hypoglycemic drugs; E87.1 Hypo-osmolality and hyponatremia; D64.9 Anemia, unspecified; R53.1 Weakness; M79.89 Other specified soft tissue disorders; I11.0 Hypertensive heart disease with heart failure; I50.33 Acute on chronic diastolic (congestive) heart failure | CPT/HCPCS: 36415; 80048; 83880; 85025; 99214 ==

== ENCOUNTER → 2023-04-27 09:12 | Outpatient (BNVA) | payer MEDICARE, SELFPAY | PROVIDERS: PCP Family Medicine; Visit Provider Family Medicine | DX: E11.8 Type 2 diabetes mellitus with unspecified complications (principal); E87.1 Hypo-osmolality and hyponatremia; K92.2 Gastrointestinal hemorrhage, unspecified; I50.9 Heart failure, unspecified; D64.9 Anemia, unspecified; M79.89 Other specified soft tissue disorders | CPT/HCPCS: 80053; 85025 ==

== ENCOUNTER 2023-04-29 18:32 | Emergency (ER) | payer MEDICARE, SELFPAY ==
[2023-04-29 18:50] VITALS: BP 95/71; PULSE 111; RESP 18; TEMP 36.8; O2SAT 98; BMI 29.0
[2023-04-29 19:02] LABS: Glucose Point of Care 50 mg/dL (70-110)
[2023-04-29 19:02] LABS: Glucose Point of Care 44 mg/dL (70-110)
[2023-04-29] MEDS: dextrose 50% syringe 50 mL IVP (19:06)
[2023-04-29] MEDS: dextrose 5%-sod chloride 0.9% 1,000 ML 100 ML IV (19:09)
[2023-04-29 19:14] LABS: Basophils % 0.3 %; Eosinophils % 0.5 %; Hematocrit 34.8 % (37-53); Lymphocytes # 0.9 10^3/uL (0.8-4.8); Lymphocytes % 14.2 %; Mean Corpuscular HGB Conc 31.9 g/dL (30-55); Mean Corpuscular Hemoglobin 29.3 pg (27-33); Mean Corpuscular Volume 91.8 fl (82-101); Mean Platelet Volume 10.4 fL (7.4-10.4); Monocytes # 0.4 10^3/uL (0.2-0.9); Monocytes % 6.6 %; Neutrophils # 4.96 10^3/uL (1.8-7.7); Neutrophils % 78.1 %; Nucleated Red Blood Cells % 0 %; Platelet Count 205 10^3/cmm (157-399); Red Blood Count 3.79 10^6/uL (3.85-5.65); Red Cell Distribution Width 20.9 % (12.1-15.1); White Blood Count 6.35 10^3/uL (3.29-11.43)
[2023-04-29 19:19] VITALS: BP 103/81; PULSE 111; RESP 18; O2SAT 98
--- NOTE | 2023-04-29 19:20 | PC.NURSE ---
pts glucose via fingerstick was 44. Dr. Boothe notified.
--- NOTE | 2023-04-29 19:24 | ED_ITS ---
HPI - Altered Mental Status General: Chief Complaint: Altered Mental Status Stated Complaint: low BS Time Seen by Provider: 04/29/23 18:52 History of Present Illness: Patient is said they been battling his blood sugar all night long. Patient was given juice and food throughout the night because he was in an altered state. Today patient was altered and called his PCP they told him to give him some sugar water then he called EMS by the time EMS got there his blood sugar was 25. They did recheck it was 50. By the time patient got here his blood sugar was 50 and 20 minutes later rechecked it was 44. Patient is currently alert and oriented x4 patient was given an amp of D50 and started on a D5 drip patient is on glimepiride 8 mg in the morning. His family doctor has been adjusting his medicine as needed over the last 6 months or so and is getting better but still not quite right. Patient does admit to his blood sugars alternating quite low and quite high but never been 25 before. Review of Systems General: Reports: 10 or more systems reviewed and unremarkable except in HPI and below PFSH ED PFSH: Medical History Acute on chronic diastolic (congestive) heart failure CAD (coronary artery disease) Had PCI in 2017 following a heart attack CHF exacerbation COPD (chronic obstructive pulmonary disease) Dyslipidemia (high LDL; low HDL) Essential hypertension Non-ST elevation [place] (NSTEMI) Pacemaker Pneumonia Type 2 diabetes mellitus with complication, without long-term current use of insulin Surgical History AICD (automatic cardioverter/defibrillator) present History of PTCA S/P placement of cardiac pacemaker Family History Mother Cancer Family/Other Diabetes Father Lung disease Denies family history of CAD (coronary artery disease) Clotting disorder Dementia Chronic kidney disease (CKD) Suicide Anesthesia complication Bleeding disorder Stroke Social History Smoking and tobacco/nicotine status: never used tobacco/nicotine Alcohol intake: current Alcohol intake frequency: few times a week Substance/Drug Use: never Physical Exam Const: COMMON NORMALS: no acute distress, average body habitus, patient oriented x3, no limitations, healthy appearing, alert and well nourished HENMT: COMMON NORMALS: normocephalic, atraumatic, hearing grossly normal bilaterally, external ears normal, Normal external nose present, moist oral mucous membranes and oropharynx normal HEAD & SCALP: normocephalic and atraumatic NOSE: Normal external nose present EXTERNAL EAR: Yes external ears normal Eye: COMMON NORMALS: Equal, round and reactive pupils present, EOMs intact bilaterally, conjunctivae normal and no scleral icterus CONJUNCTIVA: Yes conjunctivae normal PUPIL: Yes Equal, round and reactive pupils present Neck/C-Spine: COMMON NORMALS: full ROM, no lymphadenopathy, supple, no meningeal signs, no JVD and Thyroid normal THYROID: Thyroid normal Chest: COMMONS NORMALS: normal inspection of the chest and normal palpation of entire chest wall Resp: COMMON NORMALS: normal respiratory effort, No retractions, No use of accessory muscles and clear to auscultation bilaterally AUSCULTATION: clear to auscultation bilaterally Cardio: COMMON NORMALS: no JVD, regular rate, regular rhythm, S1 normal heart sound present, S2 normal heart sound present, No gallops present (Cardio), No clicks present (Cardio), No murmurs present (Cardio) and No rub (Cardio) RATE: regular rate RHYTHM: regular rhythm HEART SOUNDS: S1 normal heart sound present and S2 normal heart sound present GI: COMMON NORMALS: Normal to inspection, nondistended, normoactive bowel sounds present, Soft to palpation, non-tender, No hepatosplenomegaly present and no masses PALPATION: Yes Soft to palpation and Yes No hepatosplenomegaly present : COMMON NORMALS: Yes no CVA tenderness BLADDER/KIDNEY EXAM: Yes no CVA tenderness Back/Pelvis: COMMON NORMALS: no CVA tenderness Neuro: COMMON NORMALS: patient oriented x3 SENSORIUM/ORIENTATION: Yes alert MENINGEAL SIGNS: Yes no meningeal signs Course Vital Signs: Vital signs: Vital Signs Temperature 98.3 F 04/29/23 18:50 Pulse Rate 108 H 04/29/23 22:23 Respiratory Rate 16 04/29/23 22:23 Blood Pressure 99/76 04/29/23 22:23 Pulse Oximetry 96 04/29/23 22:23 Oxygen Delivery Me thod Room Air 04/29/23 22:23 MDM - Altered Mental Status Medical Decision Making Patient presented to the ER with a blood sugar of approximately 50 he was given 1 amp of D50 and started on D5 drip. This was slowly titrated off and patient was stable with a blood sugar around 100 for 1 hour. Patient be discharged home patient does have a glucometer and glucose strips at home now he can check his sugar. Patient was told to go home and eat something sweet with protein in it to help him throughout the night. Patient knows that if he starts feeling strange where his blood sugar gets in the 50s where it is uncontrolled dropping to come right back. Patient otherwise patient is to follow-up with his PCP for further evaluation and treatment. Differential Diagnosis Likely hypoglycemia; Unlikely alcoholic intoxication, altered mental status, delirium, dementia, hyponatremia, subarachnoid hemorrhage or sepsis Medical Records I reviewed the patient's medical records. Lab Data I reviewed the patient's lab results. 04/29/23 19:04 04/29/23 19:04 Laboratory Results WBC 6.35 10^3/uL (3.29-11.43) 04/29/23 19: RBC 3.79 10^6/uL (3.85-5.65) L 04/29/23 19: Hgb 11.10 g/dL (11.27-16.99) L 04/29/23 19: Hct 34.8 % (37-53) L 04/29/23: MCV 91.8 fl (82-101) 04/29/23 19: MCH 29.3 pg (27-33) 04/29/23 19: MCHC 31.9 g/dL (30-55) 04/29/23 19: RDW 20.9 % (12.1-15.1) H 04/29/23 19: Plt Count 205 10^3/cmm (157-399) 04/29/23 19: MPV 10.4 fL (7.4-10.4) 04/29/23 19: Neut % (Auto) 78.1 % 04/29/23 19: Lymph % (Auto) 14.2 % 04/29/23 19: [place] % (Auto) 6.6 % 04/29/23 19: Eos % (Auto) 0.5 % 04/29/23 19: Baso % (Auto) 0.3 % 10/25/23 19:04 Neut # (Auto) 4.96 10^3/uL (1.8-7.7) 04/29/23 19:04 Lymph # (Auto) 0.9 10^3/uL (0.8-4.8) 04/29/23 19:04 [place] # (Auto) 0.4 10^3/uL (0.2-0.9) 04/29/23 19:04 Eos # (Auto) 0.0 10^3/uL (0.0-0.8) 04/29/23 19:04 Baso # (Auto) 0.0 10^3/uL (0.0-0.1) 04/29/23 19:04 Nucleated RBC % (auto) 0 % 04/29/23 19:04 Nucleated RBCs # 0.0 /100WBC 04/29/23 19:04 Sodium 125 mmol/L (136-145) L 04/29/23 19:04 Potassium 3.6 mmol/L (3.5-5.1) 04/29/23 19:04 Chloride 86 mmol/L (98-107) L 04/29/23 19:04 Carbon Dioxide 23 mmol/L (22-29) 04/29/23 19:04 Anion Gap 19.6 (5-19) H 04/29/23 19:04 BUN 18 mg/dL (8-23) 04/29/23 19:04 Creatinine 1.0 mg/dL (0.7-1.2) 04/29/23 19:04 GFR Calculation Not Reportable 04/29/23 19:04 Glucose 40 mg/dL (65-115) L 04/29/23 19:04 POC Glucose 116 mg/dL (70-110) H 04/29/23 20:15 Calculated Osmolality 259 mOsm/kg (285-295) L 04/29/23 19:04 Calcium 8.6 mg/dL (8.5-10.5) 04/29/23 19:04 Total Bilirubin 0.5 mg/dL (0.15-1.2) 04/29/23 19:04 AST 29 U/L (0-40) 04/29/23 19:04 ALT 12 U/L (0-41) 04/29/23 19:04 Alkaline Phosphatase 59 U/L (40-130) 04/29/23 19:04 Total Protein 6.3 g/dL (6.6-8.7) L 04/29/23 19:04 Albumin 4.1 g/dL (3.5-5.2) 04/29/23 19:04 Globulin 2.2 g/dL (1.3-4.6) 04/29/23 19:04 No radiology studies performed this visit Discharge Plan Discharge Patient Disposition: Home Clinical Impression: Drug-induced hypoglycemia, Chronic hyponatremia Condition: Stable Prescriptions: No Action polyethylene glycol 3350 17 gram powder in packet 17 g PO DAILY PRN (Reason: constipation) pantoprazole 40 mg tablet,delayed release (DR/EC) 40 mg PO QAM Qty: 90 3RF albuterol sulfate 90 mcg/actuation HFA aerosol inhaler 2 puff INHALATION Q6H PRN (Reason: Shortness Of Breath) 14 Days Qty: 8.5 11RF glimepiride 4 mg tablet 8 mg PO QAM Qty: 180 3RF spironolactone 25 mg tablet 25 mg PO QAM ferrous sulfate 325 mg (65 mg iron) tablet 325 mg PO DAILY (DME) OXYGEN 2L VIA NC 24 HOURS See Rx Instructions .Route .MEDSUPPLY Qty: 1 0RF Rx Instructions: As directed 2 l VIA NC 24 hours ;sat oxygen 82% RA walk, 98% RA rest, 96 walk on 2L metolazone 2.5 mg tablet 2.5 mg PO DAILY PRN (Reason: Edema) furosemide 40 mg tablet 40 mg PO BID metformin 1,000 mg tablet 1,000 mg PO BID Qty: 180 3RF Rx Instructions: metformin 1000mg in am and 1/2 in pm. fluticasone propion-salmeterol [Advair HFA] 115-21 mcg/actuation HFA aerosol inhaler 2 puff INHALATION BID PRN (Reason: unknown) Qty: 12 3RF (DME) blood-glucose meter Kit See Rx Instructions .ROUTE .MEDSUPPLY Qty: 1 0RF Rx Instructions: As directed tamsulosin 0.4 mg capsule 0.4 mg PO QAM Qty: 90 0RF metoprolol tartrate 50 mg tablet 50 mg PO BID 90 Days Qty: 180 3RF Advair HFA 115-21 mcg/actuation HFA aerosol inhaler See Rx Instructions .ROUTE .COMPLEX Qty: 12 4RF Dose Instruction: INHALE TWO (2) PUFFS BY MOUTH TWICE A DAY USE WITH SPACER Rx Instructions: INHALE TWO (2) PUFFS BY MOUTH TWICE A DAY USE WITH SPACER losartan 50 mg tablet 50 mg PO DAILY Qty: 90 3RF ondansetron 4 mg tablet,disintegrating See Rx Instructions .ROUTE .COMPLEX Qty: 40 2RF Dose Instruction: DISSOLVE ONE TABLET ON TOP OF THE TONGUE WHERE IT WILL DISSOLVE THEN SWALLOW EVERY 6 HOURS NEEDED NAUSEA AND VOMITING Rx Instructions: DISSOLVE ONE TABLET ON TOP OF THE TONGUE WHERE IT WILL DISSOLVE THEN SWALLOW EVERY 6 HOURS NEEDED NAUSEA AND VOMITING atorvastatin 80 mg tablet 80 mg PO BEDTIME Qty: 90 3RF clopidogrel 75 mg tablet 75 mg PO BEDTIME aspirin 81 mg Tablet,Delayed Release (Dr/Ec) 81 mg PO QAM Discharge Orders: Discharge ED (Routine); Ordered 04/29/23 Ordered By: Hung Boothe Referrals: Kuldip Richter, [Primary Care Provider] - 7-10 days Patient Instructions: Hyponatremia (ED), Hypoglycemia in a Person with Diabetes (ED) Activity Restrictions/Additional Instructions: Please check your blood sugar frequently on an as-needed basis. Please go home and eat a sweet and proteinaceous snack before going to bed If your blood sugar drops and you cannot control it please return to the ER for further treatment. 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
[2023-04-29 19:34] LABS: Alanine Aminotransferase 12 U/L (0-41); Albumin Level 4.1 g/dL (3.5-5.2); Alkaline Phosphatase 59 U/L (40-130); Anion Gap 19.6 (5-19); Aspartate Amino Transferase 29 U/L (0-40); Blood Urea Nitrogen 18 mg/dL (8-23); Calcium 8.6 mg/dL (8.5-10.5); Carbon Dioxide 23 mmol/L (22-29); Chloride 86 mmol/L (98-107); Globulin 2.2 g/dL (1.3-4.6); Glucose 40 mg/dL (65-115); Osmolality Calculated 259 mOsm/kg (285-295); Potassium 3.6 mmol/L (3.5-5.1); Sodium 125 mmol/L (136-145); Total Bilirubin 0.5 mg/dL (0.15-1.2); Total Protein 6.3 g/dL (6.6-8.7)
--- NOTE | 2023-04-29 19:48 | PC.NURSE ---
pts glucose per fingerstick 129, Dr. Boothe notified. per Dr. Boothe to decrease dextrose infusion to 50 mL/hr
[2023-04-29 19:52] LABS: Glucose Point of Care 129 mg/dL (70-110)
--- NOTE | 2023-04-29 20:16 | PC.NURSE ---
pts blood glucose via fingerstick 116 @2014, Dr. Boothe notified
[2023-04-29 20:17] VITALS: BP 97/68; PULSE 107; RESP 14; O2SAT 98
[2023-04-29 20:18] LABS: Glucose Point of Care 116 mg/dL (70-110)
--- NOTE | 2023-04-29 20:38 | PC.NURSE ---
pts blood sugar [address] Boothe notified. per Dr. Boothe to titrate Dextrose infusion to 25mL/hr
[2023-04-29 21:06] VITALS: BP 99/74; PULSE 109; RESP 18; O2SAT 94
--- NOTE | 2023-04-29 21:08 | PC.NURSE ---
blood glucose 98 via fingerstick, Dr. Boothe notified, per Dr. Boothe to keep infusion at 25 mL/hr
--- NOTE | 2023-04-29 21:25 | PC.NURSE ---
pt glucose [address] Boot[address] Boothe verbal orders to stop dextrose infusion.
--- NOTE | 2023-04-29 21:58 | PC.NURSE ---
pts glucose [address] Boothe notified. pts dextrose infusion has been stopped approx 20 min, pt did drink applejuice.
[2023-04-29 22:23] VITALS: BP 99/76; PULSE 108; RESP 16; O2SAT 96
--- NOTE | 2023-04-29 22:24 | PC.NURSE ---
glucose 99 via fingerstick, notified. no further orders at this time
[2023-04-29 22:59] VITALS: BP 99/76; PULSE 108; RESP 16; O2SAT 96
[2023-04-29 23:05] LABS: Glucose Point of Care 100 mg/dL (70-110)
[2023-04-29 23:05] LABS: Glucose Point of Care 98 mg/dL (70-110)
[2023-04-29 23:05] LABS: Glucose Point of Care 99 mg/dL (70-110)
[2023-04-29 23:05] LABS: Glucose Point of Care 121 mg/dL (70-110)
[2023-04-29 23:05] LABS: Glucose Point of Care 101 mg/dL (70-110)
== END 2023-04-29 23:00 | disposition home or self-care (01) ==
PROVIDERS: Emergency Provider Emergency Medicine; PCP Family Medicine
DX: E11.649 Type 2 diabetes mellitus with hypoglycemia without coma (principal); T38.3X5A Adverse effect of insulin and oral hypoglycemic [antidiabetic] drugs, initial encounter; E87.1 Hypo-osmolality and hyponatremia; I25.10 Atherosclerotic heart disease of native coronary artery without angina pectoris; I11.0 Hypertensive heart disease with heart failure; I50.9 Heart failure, unspecified; J44.9 Chronic obstructive pulmonary disease, unspecified; E78.5 Hyperlipidemia, unspecified; I25.2 Old myocardial infarction; Z95.0 Presence of cardiac pacemaker; Z79.02 Long term (current) use of antithrombotics/antiplatelets; Z79.82 Long term (current) use of aspirin; Z79.84 Long term (current) use of oral hypoglycemic drugs; X58.XXXA Exposure to other specified factors, initial encounter
CPT/HCPCS: 36416; 80053; 82962; 85025; 96361; 96374; 99284; J7042

== ENCOUNTER 2023-05-04 12:37 | Emergency (ER) | payer MEDICARE, SELFPAY ==
--- NOTE | 2023-05-04 12:54 | XRR_ITS ---
PROCEDURE INFORMATION: Exam: XR Chest Exam date and time: 05/04/2023 1:12 PM Age: 72 years old Clinical indication: Other: Fluid retention; Prior surgery; Surgery date: 6+ months; Surgery type: Pacemaker; Additional info: Chf TECHNIQUE: Imaging protocol: Radiologic exam of the chest. Views: 1 view. COMPARISON: CR XR chest 1V portable [id number] 03/02/2023 1:08 PM FINDINGS: Lungs: See Pleural spaces finding. Pleural spaces: Large confluent opacity projecting over the lower half left hemithorax slightly progressed from previous exam likely secondary to left pleural effusion and adjacent lung consolidation some of which represents atelectasis. Minor indistinct wispy opacities right lung base likely secondary to platelike atelectasis. The Heart/Mediastinum: Heart appears enlarged but partially obscured due to opacification left lower hemithorax. Pacemaker and ICD monitors extending into the right atrium and right ventricle. Bones/joints: Unremarkable for age. XR/XR chest 1V portable [id number] IMPRESSION: Cardiomegaly with left pleural effusion and adjacent consolidation opacifying the lower half left hemithorax slightly progressed from previous exam.
[2023-05-04 13:20] VITALS: BP 106/73; PULSE 99; RESP 18; TEMP 36.4; O2SAT 99; BMI 31.3
[2023-05-04 13:30] LABS: Basophils % 0.2 %; Eosinophils % 0.2 %; Hematocrit 33.6 % (37-53); Lymphocytes # 0.6 10^3/uL (0.8-4.8); Lymphocytes % 12.3 %; Mean Corpuscular HGB Conc 32.1 g/dL (30-55); Mean Corpuscular Hemoglobin 29.4 pg (27-33); Mean Corpuscular Volume 91.6 fl (82-101); Mean Platelet Volume 10.4 fL (7.4-10.4); Monocytes # 0.3 10^3/uL (0.2-0.9); Monocytes % 7.5 %; Neutrophils # 3.61 10^3/uL (1.8-7.7); Neutrophils % 79.6 %; Nucleated Red Blood Cells % 0 %; Platelet Count 183 10^3/cmm (157-399); Red Blood Count 3.67 10^6/uL (3.85-5.65); Red Cell Distribution Width 20.7 % (12.1-15.1); White Blood Count 4.54 10^3/uL (3.29-11.43)
--- NOTE | 2023-05-04 13:42 | ED_ITS ---
HPI - Extremity Problem General: Chief complaint: Extremity Problem,Nontraumatic Stated complaint: fluid build up Time Seen by Provider: 05/04/23 12:55 History of Present Illness: Patient presents to the ER with complaints of 14 pound weight gain in the last 10 days. Also complains of swelling to the lower legs and feet increased urine output and difficulty breathing. Patient does take Lasix and spironolactone but they say as they are not doing the trick. Review of Systems General: Reports: 10 or more systems reviewed and unremarkable except in HPI and below PFSH ED PFSH: Medical History Acute on chronic diastolic (congestive) heart failure CAD (coronary artery disease) Had PCI in 2017 following a heart attack CHF exacerbation COPD (chronic obstructive pulmonary disease) Dyslipidemia (high LDL; low HDL) Essential hypertension Non-ST elevation [place] (NSTEMI) Pacemaker Pneumonia Type 2 diabetes mellitus with complication, without long-term current use of insulin Surgical History AICD (automatic cardioverter/defibrillator) present History of PTCA S/P placement of cardiac pacemaker Family History Mother Cancer Family/Other Diabetes Father Lung disease Denies family history of CAD (coronary artery disease) Clotting disorder Dementia Chronic kidney disease (CKD) Suicide Anesthesia complication Bleeding disorder Stroke Social History Smoking and tobacco/nicotine status: never used tobacco/nicotine Alcohol intake: current Alcohol intake frequency: few times a week Substance/Drug Use: never Physical Exam Const: COMMON NORMALS: no acute distress, average body habitus, patient oriented x3, no limitations, healthy appearing, alert and well nourished HENMT: COMMON NORMALS: normocephalic, atraumatic, hearing grossly normal bilaterally, external ears normal, Normal external nose present, moist oral mucous membranes and oropharynx normal HEAD & SCALP: normocephalic and atraumatic NOSE: Normal external nose present EXTERNAL EAR: Yes external ears normal Neck/C-Spine: COMMON NORMALS: no JVD Chest: COMMONS NORMALS: normal inspection of the chest and normal palpation of entire chest wall Resp: COMMON NORMALS: normal respiratory effort, No retractions, No use of accessory muscles and clear to auscultation bilaterally AUSCULTATION: clear to auscultation bilaterally Cardio: COMMON NORMALS: no JVD, regular rate, regular rhythm, S1 normal heart sound present, S2 normal heart sound present, No gallops present (Cardio), No clicks present (Cardio), No murmurs present (Cardio) and No rub (Cardio) RATE: regular rate RHYTHM: regular rhythm HEART SOUNDS: S1 normal heart sound present and S2 normal heart sound present GI: COMMON NORMALS: Normal to inspection, nondistended, normoactive bowel sounds present, Soft to palpation, non-tender, No hepatosplenomegaly present and no masses PALPATION: Yes Soft to palpation and Yes No hepatosplenomegaly present Extremity: NARRATIVE EXTREMITY EXAM: 2-3+ pitting edema bilateral lower extremities up past the knees Neuro: COMMON NORMALS: patient oriented x3 SENSORIUM/ORIENTATION: Yes alert Course Vital Signs: Vital signs: Vital Signs Temperature 97.5 F L 05/04/23 13:20 Pulse Rate 99 05/04/23 13:20 Respiratory Rate 18 05/04/23 13:20 Blood Pressure 106/73 05/04/23 13:20 Pulse Oximetry 99 05/04/23 13:20 Oxygen Delivery Me thod Room Air 05/04/23 13:20 MDM - Extremity (Nontraumatic) Medical Decision Making Lab work was essentially benign for the patient except for his chronic hyponatremia and elevated BNP. Chest x-ray showed cardiomegaly with left pleural effusion slightly progressed from previous exam. Patient was given 40 mg Lasix IV which she diuresed well with and then given 5 mg metolazone. Not been on his metolazone for a while. We will restart him on his metolazone at 5 mg a day for the next 5 days and have him monitor his weights. Patient should follow-up with his PCP during this time. Or shortly afterwards. Differential Diagnosis Unlikely herpes zoster, gout, cellulitis, superficial thrombophlebitis, deep venous thrombosis of upper extremity, lower extremity edema or deep vein throm bosis of lower extremity Medical Records I reviewed the patient's medical records. Lab Data I reviewed the patient's lab results. 05/04/23 13:22 05/04/23 13:22 Radiology Impressions Chest X-Ray 05/04/23 12:54 IMPRESSION: Cardiomegaly with left pleural effusion and adjacent consolidation opacifying the lower half left hemithorax slightly progressed from previous exam. Laboratory Results WBC 4.54 10^3/uL (3.29-11.43) 05/04/23 13:22 RBC 3.67 10^6/uL (3.85-5.65) L 05/04/23 13:22 Hgb 10.80 g/dL (11.27-16.99) L 05/04/23 13:22 Hct 33.6 % (37-53) L 05/04/23 13:22 MCV 91.6 fl (82-101) 05/04/23 13:22 MCH 29.4 pg (27-33) 05/04/23 13:22 MCHC 32.1 g/dL (30-55) 05/04/23 13:22 RDW 20.7 % (12.1-15.1) H 05/04/23 13:22 Plt Count 183 10^3/cmm (157-399) 05/04/23 13:22 MPV 10.4 fL (7.4-10.4) 05/04/23 13:22 Neut % (Auto) 79.6 % 05/04/23 13:22 Lymph % (Auto) 12.3 % 05/04/23 13:22 [place] % (Auto) 7.5 % 05/04/23 13:22 Eos % (Auto) 0.2 % 05/04/23 13:22 Baso % (Auto) 0.2 % 05/04/23 13:22 Neut # (Auto) 3.61 10^3/uL (1.8-7.7) 05/04/23 13:22 Lymph # (Auto) 0.6 10^3/uL (0.8-4.8) L 05/04/23 13:22 [place] # (Auto) 0.3 10^3/uL (0.2-0.9) 05/04/23 13:22 Eos # (Auto) 0.0 10^3/uL (0.0-0.8) 05/04/23 13:22 Baso # (Auto) 0.0 10^3/uL (0.0-0.1) 05/04/23 13:22 Nucleated RBC % (auto) 0 % 05/04/23 13:22 Nucleated RBCs # 0.0 /100WBC 05/04/23 13:22 Sodium 124 mmol/L (136-145) L 05/04/23 13:22 Potassium 4.5 mmol/L (3.5-5.1) 05/04/23 13:22 Chloride 88 mmol/L (98-107) L 05/04/23 13:22 Carbon Dioxide 25 mmol/L (22-29) 05/04/23 13:22 Anion Gap 15.5 (5-19) 05/04/23 13:22 BUN 19 mg/dL (8-23) 05/04/23 13:22 Creatinine 0.8 mg/dL (0.7-1.2) 05/04/23 13:22 GFR Calculation Not Reportable 05/04/23 13:22 Glucose 144 mg/dL (65-115) H 05/04/23 13:22 Calculated Osmolality 263 mOsm/kg (285-295) L 05/04/23 13:22 Calcium 9.1 mg/dL (8.5-10.5) 05/04/23 13:22 Magnesium 1.6 mg/dL (1.7-2.3) L 05/04/23 13:22 Total Bilirubin 0.6 mg/dL (0.15-1.2) 05/04/23 13:22 AST 26 U/L (0-40) 05/04/23 13:22 ALT 16 U/L (0-41) 05/04/23 13:22 Alkaline Phosphatase 61 U/L (40-130) 05/04/23 13:22 NT-Pro-B Natriuret Pep 00588 pg/mL (0-125) H 05/04/23 13:22 Total Protein 5.9 g/dL (6.6-8.7) L 05/04/23 13:22 Albumin 4.0 g/dL (3.5-5.2) 05/04/23 13:22 Globulin 1.9 g/dL (1.3-4.6) 05/04/23 13:22 All radiology interpretation(s) finalized by discharge Discharge Plan Discharge Patient Disposition: Home Clinical Impression: Leg swelling CHF (congestive heart failure) Qualifiers: Heart failure type: unspecified Heart failure chronicity: unspecified Qualified Code(s): I50.9 - Heart failure, unspecified Condition: Stable Prescriptions: No Action polyethylene glycol 3350 17 gram powder in packet 17 g PO DAILY PRN (Reason: constipation) pantoprazole 40 mg tablet,delayed release (DR/EC) 40 mg PO QAM Qty: 90 3RF albuterol sulfate 90 mcg/actuation HFA aerosol inhaler 2 puff INHALATION Q6H PRN (Reason: Shortness Of Breath) 14 Days Qty: 8.5 11RF glimepiride 4 mg tablet 8 mg PO QAM Qty: 180 3RF ferrous sulfate 325 mg (65 mg iron) tablet 325 mg PO QAM (DME) OXYGEN 2L VIA NC 24 HOURS See Rx Instructions .Route .MEDSUPPLY Qty: 1 0RF Rx Instructions: As directed 2 l VIA NC 24 hours ;sat oxygen 82% RA walk, 98% RA rest, 96 walk on 2L furosemide 40 mg tablet 40 mg PO BID metformin 1,000 mg tablet 1,000 mg PO BID Qty: 180 3RF spironolactone 25 mg tablet 25 mg PO QAM Qty: 90 3RF (DME) blood-glucose meter Kit See Rx Instructions .ROUTE .MEDSUPPLY Qty: 1 0RF Rx Instructions: As directed tamsulosin 0.4 mg capsule 0.4 mg PO QAM Qty: 90 0RF Advair HFA 115-21 mcg/actuation HFA aerosol inhaler See Rx Instructions .ROUTE .COMPLEX Qty: 12 4RF Dose Instruction: INHALE TWO (2) PUFFS BY MOUTH TWICE A DAY USE WITH SPACER Rx Instructions: INHALE TWO (2) PUFFS BY MOUTH TWICE A DAY USE WITH SPACER ondansetron 4 mg tablet,disintegrating See Rx Instructions .ROUTE .COMPLEX Qty: 40 2RF Dose Instruction: DISSOLVE ONE TABLET ON TOP OF THE TONGUE WHERE IT WILL DISSOLVE THEN SWALLOW EVERY 6 HOURS NEEDED NAUSEA AND VOMITING Rx Instructions: DISSOLVE ONE TABLET ON TOP OF THE TONGUE WHERE IT WILL DISSOLVE THEN SWALLOW EVERY 6 HOURS NEEDED NAUSEA AND VOMITING atorvastatin 80 mg tablet 80 mg PO BEDTIME Qty: 90 3RF clopidogrel 75 mg tablet 75 mg PO BEDTIME potassium chloride 10 mEq tablet extended release 10 meq PO QAM losartan 50 mg tablet 50 mg PO QAM aspirin 81 mg Tablet,Delayed Release (Dr/Ec) 81 mg PO QAM Discharge Orders: Discharge ED (Routine); Ordered 05/04/23 Ordered By: Hung Boothe Referrals: Kuldip Richter DO [Primary Care Provider] - 7-10 days Patient Instructions: Edema (ED) Activity Restrictions/Additional Instructions: Please restart her metolazone at 1 pill twice a day for the next 5 days. Please take daily weights. Please follow-up with your family practice doctor within the next 7 to 10 days for further evaluation and treatment. 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
[2023-05-04 13:57] LABS: Alanine Aminotransferase 16 U/L (0-41); Alkaline Phosphatase 61 U/L (40-130); Anion Gap 15.5 (5-19); Aspartate Amino Transferase 26 U/L (0-40); Blood Urea Nitrogen 19 mg/dL (8-23); Calcium 9.1 mg/dL (8.5-10.5); Carbon Dioxide 25 mmol/L (22-29); Chloride 88 mmol/L (98-107); Globulin 1.9 g/dL (1.3-4.6); Glucose 144 mg/dL (65-115); Magnesium 1.6 mg/dL (1.7-2.3); NT Pro B Type Natriuretic Pept 19813 pg/mL (0-125); Osmolality Calculated 263 mOsm/kg (285-295); Potassium 4.5 mmol/L (3.5-5.1); Sodium 124 mmol/L (136-145); Total Bilirubin 0.6 mg/dL (0.15-1.2); Total Protein 5.9 g/dL (6.6-8.7)
[2023-05-04] MEDS: FUROsemide 10 mg/mL SDV 4mL 40 MG IVP (14:35)
[2023-05-04] MEDS: magnesium sulfate premix 1 GM/100 ML PIGGYBACK IV (14:36)
[2023-05-04] MEDS: metOLazone 5 MG Tablet PO (16:35)
[2023-05-04 19:40] VITALS: BP 98/63; O2SAT 98
== END 2023-05-04 17:45 | disposition home or self-care (01) ==
PROVIDERS: Emergency Provider Emergency Medicine; PCP Family Medicine
DX: I11.0 Hypertensive heart disease with heart failure (principal); I50.9 Heart failure, unspecified; M79.89 Other specified soft tissue disorders; Z79.02 Long term (current) use of antithrombotics/antiplatelets; Z79.82 Long term (current) use of aspirin; Z79.84 Long term (current) use of oral hypoglycemic drugs; I25.10 Atherosclerotic heart disease of native coronary artery without angina pectoris; J44.9 Chronic obstructive pulmonary disease, unspecified; E78.5 Hyperlipidemia, unspecified; I25.2 Old myocardial infarction; Z95.0 Presence of cardiac pacemaker; E11.9 Type 2 diabetes mellitus without complications
CPT/HCPCS: 36415; 71045; 80053; 83735; 83880; 85025; 96365; 96375; 99284; J1940; J3475